=== PATIENT | male | born 1935 | race Caucasian/White ===

== ENCOUNTER → 2017-03-31 | Outpatient (CLI) | payer OTHER ==
[~2017-03-31] MED LIST: CMD10 PO; CMD75 PO; GABA600T PO; SERT25TA PO; TAMS0.4C38 PO
[2017-03-31 12:42] LABS: HEMATOCRIT 42.8 % (42-52); MEAN CELL VOLUME 91.1 fL (80-100); MEAN CORPUSCULAR HGB CONC 32.9 g/dl (32-36); MEAN PLATELET VOLUME 11.8 fL (7.4-10.4); PLATELET COUNT 159 K/uL (130-400)
[2017-03-31 13:01] LABS: BLOOD UREA NITROGEN 17 mg/dl (7-18); BUN/CREATININE RATIO 14.4 (10-20); CALCIUM 8.7 mg/dl (8.5-10.1); CARBON DIOXIDE 26 mmol/L (21-32); CHLORIDE 110 mmol/L (98-107); CHOLESTEROL 140 mg/dl (0-200); GLUCOSE,FASTING 82 mg/dl (70-99); POTASSIUM 4.2 mmol/L (3.5-5.1); SODIUM 141 mmol/L (136-145)
[2017-03-31 13:04] LABS: CHOLESTEROL/HDL RATIO 3.6; HDL CHOLESTEROL 39 mg/dl; LDL CHOLESTEROL CALCULATED 83 mg/dl; TRIGLYCERIDES 91 mg/dl (0-150); VERY LOW DENSITY LIPOPROT CALC 18 mg/dl
--- NOTE | 2017-04-11 12:30 | CODING QUERY MEDICAL NECESSITY ---
CQSUPPORTING DIAGNOSIS NEEDED A supporting diagnosis is required for the test/procedure performed on this patient in order for us to be reimbursed by the patient's insurance. Please provide a supporting diagnosis for the following test/procedure listed below next to the test name along with your signature. *If there is no additional diagnosis for this patient that would support the following test/procedure please document that below next to the test/procedure. Test(s)/Procedure(s) that require a supporting diagnosis: DOS 03/31/17 BLOOD COUNT Provider Signature: Date: Thank you Eleonora Blount [employer] Once completed, please kindly fax back to [phone] For questions please call [phone]
== END | disposition home or self-care (01) ==
LOC: C.LABPBG 10:19
PROVIDERS: ATTEND Physician Assistant
DX: Z00.00 Encounter for general adult medical examination without abnormal findings (principal); E78.5 Hyperlipidemia, unspecified; I10 Essential (primary) hypertension

== ENCOUNTER → 2017-05-15 | Outpatient (CLI) | payer OTHER ==
[2017-05-15 18:01] LABS: MANUAL MICROSCOPIC REQUIRED? NO; REVIEW REQ? NO; URINE APPEARANCE CLEAR (CLEAR); URINE BILIRUBIN NEG (NEG); URINE COLOR DK YELLOW; URINE EPITHELIAL CELL AUTO 0-5 /lpf (0-5); URINE NITRITE NEG (NEG); URINE SPECIFIC GRAVITY 1.023 (1.000-1.030); UROBILINOGEN POS (NEG); ZZUR CULT IF INDIC CLEAN CATCH NO
[2017-05-20 11:08] LABS: 18KDIGG BAND REACTIVE (NONREACTIVE); 23KDIGG BAND REACTIVE (NONREACTIVE); 23KDIGM BAND REACTIVE (NONREACTIVE); 28KDIGG BAND NONREACTIVE (NONREACTIVE); 30KDIGG BAND NONREACTIVE (NONREACTIVE); 39KDIGG BAND NONREACTIVE (NONREACTIVE); 39KDIGM BAND NONREACTIVE (NONREACTIVE); 41KDIGG BAND REACTIVE (NONREACTIVE); 41KDIGM BAND NONREACTIVE (NONREACTIVE); 45KDIGG BAND NONREACTIVE (NONREACTIVE); 58KDIGG BAND REACTIVE (NONREACTIVE); 66KDIGG BAND REACTIVE (NONREACTIVE); 93KDIGG BAND NONREACTIVE (NONREACTIVE)
== END | disposition home or self-care (01) ==
LOC: C.LABPBG 14:45
PROVIDERS: ATTEND Physician Assistant
DX: S30.861A Insect bite (nonvenomous) of abdominal wall, initial encounter (principal); W57.XXXA Bitten or stung by nonvenomous insect and other nonvenomous arthropods, initial encounter; R42 Dizziness and giddiness

== ENCOUNTER → 2018-02-01 | Outpatient (CLI) | payer OTHER ==
--- NOTE | 2018-02-01 13:18 | DIAGNOSTIC IMAGING REPORT ---
(CHEST) THORAX WITHOUT CLINICAL HISTORY: 82 years-old Male presenting with R93.[address], history of COPD. TECHNIQUE: Multidetector CT imaging of the chest was performed without the use of intravenous contrast. IV contrast: None. A dose lowering technique was used consistent with the principles of ALARA (as low as reasonably achievable). COMPARISON: 06/22/2016. CT DOSE (mGy.cm): The estimated cumulative dose is 415.69 mGy.cm. FINDINGS: Instrumentation Supervisor topogram: Unremarkable. On soft tissue windows, subcentimeter nodules present in the thyroid. 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 Calcified right hilar and mediastinal lymph nodes noted. No axillary, supraclavicular, or mediastinal lymphadenopathy. Evaluation of the caio limited without intravenous contrast. Atherosclerosis of the aorta. Normal heart size. Coronary artery and aortic valve calcification. No pericardial or pleural effusion. Upper abdomen normal. On lung windows, evidence of air trapping and emphysematous changes in the left lower lobe with significant left lower lobe bronchiectasis. This is similar to the prior exam. Calcified granuloma noted in the right middle lobe. Mild pleural parenchymal scarring at the apices similar to prior. Interval resolution of the previously noted tree-in-bud opacities in the lateral basal right lower lobe. However, 2 adjacent solid nodules are noted in the posterior basal right lower lobe one measuring 7 mm (series 4 image 288) and the second measuring 5 mm (series 4 image 291). These are both subpleural/peripheral. Mild interlobular septal thickening at the right lung base. On bone windows, degenerative changes of the spine. IMPRESSION: 1. Interval development of 2 peripheral/subpleural solid nodules at the right lung base the largest measuring 7 mm. Follow-up per [employer] 2017 recommendations below. 2. Interval clearance of the previously noted tree-in-bud opacities in the right lower lobe in 2016. 3. Stable appearance of bronchiectatic change and air trapping in the left lower lobe. 4. 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 No convincing evidence of acute infection. Please refer to below summary of Fleischner Society 2017 recommendations for follow-up of incidental CT nodules (H Moiz et al. Guidelines for management of incidental pulmonary nodules detected on CT images: From the Fleischner Society 2017. Radiology 2017; 284: 228-243.) SOLID NODULES Single nodule; size < 6 mm * Low risk patients: No routine follow-up * High risk patients: Optional CT at 12 months Single nodule; size 6-8 mm * Low risk patients: CT at 6-12 months, then consider CT at 18-24 months * High risk patients: CT at 6-12 months, then at 18-24 months Single nodule; size > 8 mm * Either low or high risk patients: Considered CT at 3 months, PET/CT, or tissue sampling Multiple nodules; size < 6 mm * Low risk patients: No routine follow up * High risk patients: Optional CT at 12 months Multiple nodules; size 6-8 mm * Low risk patients: CT at 3-6 months, then consider CT at 18-24 months * High risk patients: CT at 3-6 months, then at 18-24 months Multiple nodules; size > 8 mm * Low risk patients: CT at 3-6 months, then consider at 18-24 months * High risk patients: CT at 3-6 months, then at 18-24 months SUBSOLID NODULES Single ground-glass nodule * Nodule size < 6 mm: No routine follow-up * Nodule size > or = 6 mm: CT at 6-12 months to confirm persistence, then CT every 2 years until 5 years Single part-solid nodule * Nodule size < 6 mm: No routine follow-up * Nodules size > or = 6 mm: CT at 3-6 months to confirm persistence. If unchanged and solid component remains < 6 mm, annual CT should be performed for 5 years Multiple nodules * Nodule size < 6 mm: CT at 3-6 months. If stable, consider CT at 2 and 4 years. * Nodules size > or = 6 mm: CT at 3-6 months. Subsequent management based on the most suspicious nodule(s) NOTE: 1) These guidelines apply to incidental nodules. These guidelines do NOT apply to patients younger than 35 years, immunocompromised patients, or patients with cancer. 2) Risk categories: * Low risk patients: Minimal or absent history of smoking and/or other known risk factors * High risk patients: History of smoking, exposure to other carcinogens, emphysema, fibrosis, upper lobe location, family history of lung cancer, etc. 3) If a nodule up to 8 mm is partly solid or is ground glass, further follow-up is required after 24 months to exclude possible slow growing adenocarcinoma. Electronically signed by: Gurinder French M.D. 02/01/2018 1:17 PM Dictated Date/Time: 02/01/2018 1:10 PM
[2018-02-01 14:51] LABS: BASO % 0.2 %; BASO ABS # 0.01 K/uL (0-0.2); EOS % 1.7 %; EOS ABS # 0.09 K/uL (0-0.5); HEMOGLOBIN 14.7 g/dL (14.0-18.0); LYMPH % 20.6 %; LYMPH ABS # 1.08 K/uL (1.2-3.4); MEAN CELL VOLUME 93.9 fL (80-100); MEAN CORPUSCULAR HEMOGLOBIN 30.7 pg (25-34); MEAN CORPUSCULAR HGB CONC 32.7 g/dl (32-36); MONO % 8.4 %; MONO ABS # 0.44 K/uL (0.11-0.59); NEUT % 69.1 %; NEUT ABS # 3.63 K/uL (1.4-6.5); PLATELET COUNT 203 K/uL (130-400); RED CELL DISTRIBUTION WIDTH CV 14.3 % (11.5-14.5); RED CELL DISTRIBUTION WIDTH SD 49.2 fL (36.4-46.3); WHITE BLOOD COUNT 5.25 K/uL (4.8-10.8)
[2018-02-01 15:24] LABS: BLOOD UREA NITROGEN 18 mg/dl (7-18); CALCIUM 8.6 mg/dl (8.5-10.1); CARBON DIOXIDE 30 mmol/L (21-32); CREATININE 1.24 mg/dl (0.60-1.40); GLUCOSE 110 mg/dl (70-99); POTASSIUM 3.9 mmol/L (3.5-5.1); SODIUM 143 mmol/L (136-145)
== END | disposition home or self-care (01) ==
LOC: C.CTS 12:43
PROVIDERS: ATTEND Family Medicine
DX: R93.8 Abnormal findings on diagnostic imaging of other specified body structures (principal); I95.9 Hypotension, unspecified; R53.1 Weakness

== ENCOUNTER → 2018-05-09 | Outpatient (CLI) | payer OTHER ==
--- NOTE | 2018-05-09 14:16 | DIAGNOSTIC IMAGING REPORT ---
L HIP UNILATERAL 2 VIEWS HISTORY: 82 years-old Male HIP PAIN, LEFT acute left hip pain without reported trauma COMPARISON: None available TECHNIQUE: 2 views of the left hip FINDINGS: The bones appear mildly demineralized. Mild degenerative changes about the left femoral acetabular joint. Surgical coils project over the right hemipelvis. Round calcifications of the pelvic basin suggest phleboliths. No acute fracture or dislocation. IMPRESSION: No acute fracture or dislocation identified. The above report was generated using voice recognition software. It may contain grammatical, syntax or spelling errors. Electronically signed by: Al Gottlieb M.D. 05/09/2018 2:15 PM Dictated Date/Time: 05/09/2018 2:13 PM
== END | disposition home or self-care (01) ==
LOC: C.RAD 13:57
PROVIDERS: ATTEND Physician Assistant
DX: M25.552 Pain in left hip (principal)

== ENCOUNTER 2022-06-14 07:23 | Observation (INO) ==
[2022-06-14 08:27] LABS: Basophils # (auto) 0.02 K/uL (0-0.2); Basophils % (auto) 0.3 %; Hematocrit (blood only) 42.9 % (40.1-51.0); Hemoglobin 14.8 g/dl (14.0-18.0); Immature Granulocytes # (auto) 0.01 K/uL (0.00-0.02); Immature Granulocytes % (auto) 0.1 %; Lymphocytes # (auto) 1.34 K/uL (1.2-3.4); Lymphocytes % (auto) 17.5 %; Mean Corpuscular Hemoglobin 31.2 pg (25.0-34.0); Mean Corpuscular Hgb Conc 34.5 g/dL (32.0-36.0); Mean Corpuscular Volume 90.5 fL (80.0-100.0); Mean Platelet Volume 11.1 fL (9.4-12.4); Monocytes # (auto) 1.13 K/uL (0.24-0.82); Monocytes % (auto) 14.7 %; Neutrophils # (auto) 5.17 K/uL (1.4-6.5); Neutrophils % (auto) 67.4 %; Platelet Count 143 K/uL (130-400); RDW Coefficient of Variation 13.8 % (11.5-14.5); RDW Standard Deviation 45.7 fL (36.4-46.3); Red Blood Count 4.74 M/uL (4.63-6.08); White Blood Count 7.67 K/ul (4.8-10.8)
[2022-06-14 08:31] LABS: Appearance Urine Clear (Clear); Bacteria Urine Automated Negative (Negative); Bilirubin Urine Negative (Negative); Blood Urine 2+ (Negative); Color Urine Dark Yellow; Glucose Urine UA Negative (Negative); Ketones Urine Trace (Negative); Leukocyte Esterase Urine Negative (Negative); Nitrite Urine Negative (Negative); Protein Urine Trace (Negative); RBC Urine Automated >30 /hpf (0-4); Urobilinogen Urine Positive (Negative); pH Urine 6.5 (4.5-7.5)
--- NOTE | 2022-06-14 08:33 | Emergency Department Note ---
Impression & Plan COVID-19, Generalized weakness ED Provider Note CHIEF COMPLAINT: Illness HISTORY OF PRESENT ILLNESS: Filiberto Simmons is an 86 year old male with history of a-fib on Eliquis, COPD, HTN, DLD, hypothyroidism, among others listed below who presents to the Emergency Department for evaluation of illness including perceived fevers/chills, headaches, sore throat, nasal congestion cough, shortness of breath and generalized weakness which has been persistent over the past 3 days. The patient states that he has pretty much been resting in his chair for the past 3 days as he has felt too weak to get up. He also notes decreased appetite and has had poor oral intake. Last evening around midnight, he states that he was going to get up to get something to eat but couldn't make it, so he laid on the floor and slept there until his called the ambulance at 0600 for help. The patient denies having suffered a fall and did not injure himself in any way. No LOC. Currently, the patient denies having specific pain but states that he just feels generally unwell. He has not been taking any medication for his symptoms. The patient does state that he was recently exposed to COVID-19 by his daughter within the last week. He was not able to complete the vaccination due to allergy. REVIEW OF SYSTEMS: 10 systems were reviewed and were negative unless otherwise stated in HPI as above PHYSICAL EXAM: VITALS: Vitals are noted on the nurse's note and reviewed by myself. Hypertensive, additional vital signs stable. General: Resting in bed, appears tired, no acute distress HEENT: Normocephalic, atraumatic, PERRL, EOMI, right TM with mild erythema and small effusion, left TM clear, no nasal discharge, mucous membranes moist, oropharynx clear without erythema, edema or exudates Neck: Supple, no lymphadenopathy, non-tender, ROM intact without pain Resp: Good inspiratory effort on room air, lung sounds clear bilaterally without wheezing, rales or rhonchi CV: Irregularly irregular rate and rhythm, peripheral pulses palpated Back: Non-tender to palpation Abd: Soft, non-distended, non-tender MSK: No obvious long bone deformities. Moving all extremities with strength 5/5 and sensation intact throughout Integumentary: Warm, dry, no appreciable rashes, no outward signs of trauma Neuro: Awake, alert and oriented x 3, interacting and answering questions appropriately Differential diagnosis includes viral syndrome, otitis, pharyngitis, pneumonia, influenza, meningitis, urinary tract infection, sepsis, bacteremia, as well as other pathologies. EMERGENCY DEPARTMENT COURSE: Physical exam and history were performed. Nursing triage notes, EMR, and medication list were personally reviewed. Patient is an 86 year old male with history of a-fib on Eliquis, COPD, HTN, DLD, hypothyroidism, among others listed below who presents to the Emergency Department for evaluation of illness including perceived fevers/chills, headaches, sore throat, nasal congestion cough, shortness of breath and generalized weakness which has been persistent over the past 3 days. Additional history as described above. See physical exam as noted above. The patient was offered medication and was given Tylenol 1000 mg. IV access was established and he was also given NSS 500 mL. Labs were obtained and reviewed by myself as below. Of note, no concern for leukocytosis with a WBC of 7.67. No concern for anemia with hemoglobin 14.8. Electrolytes WNL. Renal indices stable. LFTs nondiagnostic. Lipase WNL. High-sensitivity troponin not elevated at 7.4. INR slightly elevated at 1.2 with PT of 12.5 and PTT of 31.6. Urinalysis was obtained and showed trace protein, trace ketones, 2+ blood, positive urobilinogen, >30 red blood cells. Possible contamination with 510 epithelial cells. EKG was obtained and showed A. fib at 78 bpm. No concern for acute ischemic change. No previous studies available for comparison. Chest x-ray was obtained, reviewed by radiologist and myself as below. Images not concerning for acute cardiopulmonary findings. The patient was tested for COVID19, influenza a/B and RSV. He did test positive for COVID19. Upon reevaluation, the patient was doing well. I discussed the results the above findings with him at bedside. Given the patient's positive diagnosis of COVID19 and generalized weakness with ambulatory dysfunction and multiple comorbidities, I do feel that he will benefit from continued monitoring in the hospital. I did call and speak with Dr. Bass of the [facility] hospitalist group. She agreed to evaluate the patient. Please see her documentation for additional plan and disposition thereafter. The patient verbalizes understanding and agreement with the treatment plan as above. The chart was completed utilizing Dragon Speech Voice Recognition Software. Grammatical errors, random word insertions, pronoun errors, and incomplete sentences are an occasional consequence of this system due to software limitations, ambient noise, and hardware issues. Any formal questions or concerns about the content, text, or information contained within the body of this dictation should be directly addressed to the provider for clarification. Past Med/Surg History Medical History Atrial fibrillation, permanent Benign essential hypertension BPH with obstruction/lower urinary tract symptoms Bronchiectasis Chronic anticoagulation COPD (chronic obstructive pulmonary disease) Depression with anxiety Elevated PSA History of Lyme disease History of pneumonia Hyperlipidemia Hypothyroid Insomnia Neuropathy PAC (premature atrial contraction) Prostate nodule Pulmonary nodules last CT chest in December 2018 noting resolution of pulmonary nodules, no further f/u indicated. 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 caffeine: Yes (Coffee x 1 cup per day.) during the past year weight has: remained stable Dental Care, Regularly: Yes Physical Activity Frequency: 1-2 Times per Week Seatbelt Use: always Sunscreen Use: Yes Assistive Devices: Glasses Allergies Allergies Allergy/AdvReac Type Severity Reaction Status Date / Time COVID-19 vaccine, mRNA, AdvReac Severe Verified 06/14/22 09:21 [id number], [From Moderna COVID-19 Booster(Unap)] Home Meds Home Medications Medication Instructions Recorded Confirmed triamcinolone acetonide 0.1 % See Rx Instructions .Route 05/26/22 06/14/22 topical cream .COMPLEX PRN Rash propranolol 10 mg tablet 10 mg PO BID 06/14/22 06/14/22 Previous Rx's Medication Instructions Recorded polyethylene glycol 3350 17 gram 17 gm PO .COMPLEX #100 ea 07/26/19 oral powder packet bumetanide 0.5 mg tablet 0.5 mg PO DAILY PRN swelling #90 05/27/21 tabs gabapentin 600 mg tablet 600 mg PO BID #180 tabs 01/17/22 tamsulosin 0.4 mg capsule 0.4 mg PO QAM #90 caps 01/17/22 apixaban 5 mg tablet (Eliquis) 5 mg PO BID #180 tabs 02/18/22 atorvastatin 10 mg tablet 10 mg PO QAM #90 tabs 05/10/22 levothyroxine 25 mcg tablet 25 mcg PO QAM #90 tabs 05/20/22 amlodipine 2.5 mg tablet 2.5 mg PO DAILY #90 tabs 06/14/22 Results & Data (ED) Vital Signs Vital Signs - 24 hr 06/14/22 07:31 06/14/22 08:02 06/14/22 09:00 Temperature 37.3 C Temperature Source Oral Pulse Rate 82 Pulse Rate [Right Finger] 78 78 Pulse Rate from SpO2 Sensor Respiratory Rate 24 24 24 Respiratory Effort / Characteristics Respiratory Depth Blood Pressure 161/102 H Blood Pressure [Right Arm] 168/98 H 161/96 H Blood Pressure Mean 121 Blood Pressure Mean [Right Arm] 121 117 Pulse Oximetry 99 98 94 Oxygen Delivery Method Room Air Room Air Room Air Sepsis Recent Fever Within 48 Hours No Sepsis New/Unexplained Change in Mental Status N/A Sepsis Action Taken by Nursing No Action Required 06/14/22 09:51 06/14/22 07:48 06/14/22 08:00 Temperature Temperature Source Pulse Rate 85 80 Pulse Rate [Right Finger] 86 Pulse Rate from SpO2 Sensor 87 81 Respiratory Rate 24 25 H 27 H Respiratory Effort / Characteristics Non-Labored Respiratory Depth Normal Blood Pressure Blood Pressure [Right Arm] 173/103 H Blood Pressure Mean Blood Pressure Mean [Right Arm] 126 Pulse Oximetry 96 97 96 Oxygen Delivery Method Room Air Sepsis Recent Fever Within 48 Hours Sepsis New/Unexplained Change in Mental Status Sepsis Action Taken by Nursing 06/14/22 08:01 06/14/22 08:01 06/14/22 08:30 Temperature Temperature Source Pulse Rate 79 80 Pulse Rate [Right Finger] Pulse Rate from SpO2 Sensor 82 Respiratory Rate 26 H 24 Respiratory Effort / Characteristics Respiratory Depth Blood Pressure 168/98 H Blood Pressure [Right Arm] Blood Pressure Mean 121 Blood Pressure Mean [Right Arm] Pulse Oximetry 96 Oxygen Delivery Method Sepsis Recent Fever Within 48 Hours Sepsis New/Unexplained Change in Mental Status Sepsis Action Taken by Nursing 06/14/22 08:59 06/14/22 08:59 06/14/22 09:00 Temperature Temperature Source Pulse Rate 74 Pulse Rate [Right Finger] Pulse Rate from SpO2 Sensor Respiratory Rate 21 Respiratory Effort / Characteristics Respiratory Depth Blood Pressure 161/96 H 156/96 H Blood Pressure [Right Arm] Blood Pressure Mean 117 116 Blood Pressure Mean [Right Arm] Pulse Oximetry Oxygen Delivery Method Sepsis Recent Fever Within 48 Hours Sepsis New/Unexplained Change in Mental Status Sepsis Action Taken by Nursing 06/14/22 09:00 06/14/22 09:30 06/14/22 09:51 Temperature Temperature Source Pulse Rate 78 90 Pulse Rate [Right Finger] Pulse Rate from SpO2 Sensor 81 84 Respiratory Rate 25 H 24 Respiratory Effort / Characteristics Respiratory Depth Blood Pressure 173/103 H Blood Pressure [Right Arm] Blood Pressure Mean 126 Blood Pressure Mean [Right Arm] Pulse Oximetry 94 95 Oxygen Delivery Method Sepsis Recent Fever Within 48 Hours Sepsis New/Unexplained Change in Mental Status Sepsis Action Taken by Nursing 06/14/22 09:51 06/14/22 10:00 06/14/22 10:00 Temperature Temperature Source Pulse Rate 83 75 Pulse Rate [Right Finger] Pulse Rate from SpO2 Sensor 78 87 Respiratory Rate 29 H 26 H Respiratory Effort / Characteristics Respiratory Depth Blood Pressure 169/100 H Blood Pressure [Right Arm] Blood Pressure Mean 123 Blood Pressure Mean [Right Arm] Pulse Oximetry 96 91 Oxygen Delivery Method Sepsis Recent Fever Within 48 Hours Sepsis New/Unexplained Change in Mental Status Sepsis Action Taken by Nursing 06/14/22 10:30 06/14/22 10:30 06/14/22 11:00 Temperature Temperature Source Pulse Rate 80 Pulse Rate [Right Finger] Pulse Rate from SpO2 Sensor 83 Respiratory Rate 16 Respiratory Effort / Characteristics Respiratory Depth Blood Pressure 148/94 H 139/83 Blood Pressure [Right Arm] Blood Pressure Mean 112 101 Blood Pressure Mean [Right Arm] Pulse Oximetry Oxygen Delivery Method Sepsis Recent Fever Within 48 Hours Sepsis New/Unexplained Change in Mental Status Sepsis Action Taken by Nursing 06/14/22 11:00 06/14/22 11:30 06/14/22 11:30 Temperature Temperature Source Pulse Rate 72 66 Pulse Rate [Right Finger] Pulse Rate from SpO2 Sensor 73 67 Respiratory Rate 24 24 Respiratory Effort / Characteristics Respiratory Depth Blood Pressure 153/88 H Blood Pressure [Right Arm] Blood Pressure Mean 109 Blood Pressure Mean [Right Arm] Pulse Oximetry 95 95 Oxygen Delivery Method Sepsis Recent Fever Within 48 Hours Sepsis New/Unexplained Change in Mental Status Sepsis Action Taken by Nursing Laboratory Data Result diagrams: 06/14/22 08:05 06/14/22 08:05 Lab Results 06/14/22 06/14/22 06/14/22 Range/Units 08:05 08:05 08:05 WBC 7.67 (4.8-10.8) K/ul RBC 4.74 (4.63-6.08) M/uL Hgb 14.8 (14.0-18.0) g/dl Hct 42.9 (40.1-51.0) % MCV 90.5 (80.0-100.0) fL MCH 31.2 (25.0-34.0) pg MCHC 34.5 (32.0-36.0) g/dL RDW Std Deviation 45.7 (36.4-46.3) fL RDW Coeff of Nadege 13.8 (11.5-14.5) % Plt Count 143 (130-400) K/uL MPV 11.1 (9.4-12.4) fL Immature Gran % (Auto) 0.1 % Neut % (Auto) 67.4 % Lymph % (Auto) 17.5 % Todd % (Auto) 14.7 % Eos % (Auto) 0.0 % Baso % (Auto) 0.3 % Neut # (Auto) 5.17 (1.4-6.5) K/uL Lymph # (Auto) 1.34 (1.2-3.4) K/uL Todd # (Auto) 1.13 H (0.24-0.82) K/uL Eos # (Auto) 0.00 (0-0.50) K/uL Baso # (Auto) 0.02 (0-0.2) K/uL Immature Gran # (Auto) 0.01 (0.00-0.02) K/uL PT 12.5 H (9.0-12.0) Seconds INR 1.2 H (0.9-1.1) APTT 31.6 H (21.0-31.0) Seconds PTT Ratio 1.1 Sodium 138 (136-145) mmol/L Potassium 3.5 (3.5-5.1) mmol/L Chloride 102 (98-107) mmol/L Carbon Dioxide 30 (21-32) mmol/L Anion Gap 6 (3-11) BUN 15 (6-23) mg/dl Creatinine 1.16 (0.6-1.4) mg/dl Est Cr Clr Drug Dosing 56.5 ml/min Est GFR ( Amer) 65.3 ml/min Est GFR (Non-Af Amer) 56.3 ml/min BUN/Creatinine Ratio 12.9 (10-20) Glucose 91 (70-99(Fasting)) mg/dl Calcium 8.7 (8.5-10.1) mg/dl Phosphorus 3.2 (2.5-4.9) mg/dl Magnesium 1.8 (1.7-2.4) mg/dl Total Bilirubin 1.5 H (0.2-1.0) mg/dl AST 18 (13-39) U/L ALT 14 (7-52) U/L Alkaline Phosphatase 77 (34-104) U/L Troponin I High Sens 7.4 (0-20) pg/ml Total Protein 6.5 (6.0-8.3) gm/dl Albumin 3.5 (3.4-5.0) gm/dl Globulin 3.0 (2.5-4.0) gm/dl Albumin/Globulin Ratio 1.2 (0.9-2) Lipase 24 (11-82) U/L Urine Color Urine Appearance (Clear) Urine pH (4.5-7.5) Ur Specific [place] (1.000-1.030) Urine Protein (Negative) Urine Glucose (UA) (Negative) Urine Ketones (Negative) Urine Blood (Negative) Urine Nitrite (Negative) Urine Bilirubin (Negative) Urine Urobilinogen (Negative) Ur Leukocyte Esterase (Negative) Urine WBC (Auto) (0-5) /hpf Urine RBC (Auto) (0-4) /hpf U Hyaline Cast (Auto) (0-5) /lpf U Epithel Cells (Auto) (0-5) /lpf Urine Bacteria (Auto) (Negative) SARS-CoV-2 (PCR) (Negative) Influenza Type A (PCR) (Neg) Influenza Type B (PCR) (Neg) RSV (RT-PCR) (Neg) 06/14/22 06/14/22 Range/Units 08:05 08:05 WBC (4.8-10.8) K/ul RBC (4.63-6.08) M/uL Hgb (14.0-18.0) g/dl Hct (40.1-51.0) % MCV (80.0-100.0) fL MCH (25.0-34.0) pg MCHC (32.0-36.0) g/dL RDW Std Deviation (36.4-46.3) fL RDW Coeff of Nadege (11.5-14.5) % Plt Count (130-400) K/uL MPV (9.4-12.4) fL Immature Gran % (Auto) % Neut % (Auto) % Lymph % (Auto) % Todd % (Auto) % Eos % (Auto) % Baso % (Auto) % Neut # (Auto) (1.4-6.5) K/uL Lymph # (Auto) (1.2-3.4) K/uL Todd # (Auto) (0.24-0.82) K/uL Eos # (Auto) (0-0.50) K/uL Baso # (Auto) (0-0.2) K/uL Immature Gran # (Auto) (0.00-0.02) K/uL PT (9.0-12.0) Seconds INR (0.9-1.1) APTT (21.0-31.0) Seconds PTT Ratio Sodium (136-145) mmol/L Potassium (3.5-5.1) mmol/L Chloride (98-107) mmol/L Carbon Dioxide (21-32) mmol/L Anion Gap (3-11) BUN (6-23) mg/dl Creatinine (0.6-1.4) mg/dl Est Cr Clr Drug Dosing ml/min Est GFR ( Amer) ml/min Est GFR (Non-Af Amer) ml/min BUN/Creatinine Ratio (10-20) Glucose (70-99(Fasting)) mg/dl Calcium (8.5-10.1) mg/dl Phosphorus (2.5-4.9) mg/dl Magnesium (1.7-2.4) mg/dl Total Bilirubin (0.2-1.0) mg/dl AST (13-39) U/L ALT (7-52) U/L Alkaline Phosphatase (34-104) U/L Troponin I High Sens (0-20) pg/ml Total Protein (6.0-8.3) gm/dl Albumin (3.4-5.0) gm/dl Globulin (2.5-4.0) gm/dl Albumin/Globulin Ratio (0.9-2) Lipase (11-82) U/L Urine Color Dark Yellow Urine Appearance Clear (Clear) Urine pH 6.5 (4.5-7.5) Ur Specific [place] 1.020 (1.000-1.030) Urine Protein Trace H (Negative) Urine Glucose (UA) Negative (Negative) Urine Ketones Trace H (Negative) Urine Blood 2+ H (Negative) Urine Nitrite Negative (Negative) Urine Bilirubin Negative (Negative) Urine Urobilinogen Positive H (Negative) Ur Leukocyte Esterase Negative (Negative) Urine WBC (Auto) 1-5 (0-5) /hpf Urine RBC (Auto) >30 H (0-4) /hpf U Hyaline Cast (Auto) 1-5 (0-5) /lpf U Epithel Cells (Auto) 5-10 H (0-5) /lpf Urine Bacteria (Auto) Negative (Negative) SARS-CoV-2 (PCR) POSITIVE A* (Negative) Influenza Type A (PCR) Negative (Neg) Influenza Type B (PCR) Negative (Neg) RSV (RT-PCR) Negative (Neg) Administered Medications Amlodipine Besylate (Amlodipine Besylate 5 Mg Tab) 2.5 mg PO DAILY TARI Stop: 07/14/22 14:17 Last Admin: 06/14/22 15:35 Dose: 2.5 mg Documented By: AM Apixaban (Apixaban 5 Mg Tablet) 5 mg PO BID TARI Stop: 07/14/22 14:17 Last Admin: 06/14/22 15:37 Dose: 5 mg Documented By: AM Atorvastatin Calcium (Atorvastatin 10 Mg Tab) 10 mg PO QAM TARI Stop: 07/14/22 14:17 Last Admin: 06/14/22 15:37 Dose: 10 mg Documented By: AM Gabapentin (Gabapentin 600 Mg Tab) 600 mg PO BID TARI Stop: 07/14/22 14:17 Last Admin: 06/14/22 15:38 Dose: 600 mg Documented By: AM Propranolol HCl (Propranolol Hcl 10 Mg Tab) 10 mg PO BID TARI Stop: 07/14/22 14:17 Last Admin: 06/14/22 15:38 Dose: 10 mg Documented By: AM Tamsulosin HCl (Tamsulosin Hcl 0.4 Mg Cap) 0.4 mg PO QAM TARI Stop: 07/14/22 14:17 Last Admin: 06/14/22 15:39 Dose: 0.4 mg Documented By: AM Discontinued Medications Acetaminophen (Acetaminophen 500 Mg Tab) 1,000 mg PO NOW STA Stop: 06/14/22 09:00 Last Admin: 06/14/22 09:51 Dose: 1,000 mg Documented By: NRB Sodium Chloride (Nss) 500 mls @ 999 mls/hr IV .Q31M TARI Stop: 07/14/22 08:59 Last Infusion: 06/14/22 11:00 Dose: 0 mls/hr Documented By: Admin: 06/14/22 10:06 Dose: 999 mls/hr Documented By: NRB Imaging Data Radiologist's Impression: Chest X-Ray 06/14/22 07:59 XR chest 1V portable CLINICAL HISTORY: Fall. COMPARISON STUDY: No previous studies for comparison. FINDINGS: There is no pneumothorax or pleural effusion. There is no consolidation. Suspected nipple shadow projects over the right lower lung. There is no evidence for pulmonary edema. IMPRESSION: No acute cardiopulmonary findings. ACT 112: Negative or not required by law. Electronically signed by: Inocencio Green M.D. 06/14/2022 9:20 AM Discharge Plan Visit Data Chief Complaint: Illness Stated Complaint: FALL/WEAKNESS/RECENT COVID EXPOSURE ED Provider: [facility] Midlevel Provider: Halle Gonsales Discharge Problem: COVID-19, Generalized weakness Patient Disposition: Admitted As Inpatient Discharge Instructions Interventions: ED Discharge Assessment Last Done: 06/14/22 14:19
[2022-06-14 08:40] LABS: INR 1.2 (0.9-1.1); Partial Thromboplastin Ratio 1.1; Partial Thromboplastin Time 31.6 Seconds (21.0-31.0); Prothrombin Time 12.5 Seconds (9.0-12.0)
[2022-06-14 08:55] LABS: Troponin I High Sensitivity 7.4 pg/ml (0-20)
[2022-06-14] MEDS ORDERED: ACETAMINOPHEN 500 MG TAB PO STA (08:59)
[2022-06-14 09:00] LABS: Albumin Globulin Ratio 1.2 (0.9-2); Albumin Level 3.5 gm/dl (3.4-5.0); BUN Creatinine Ratio 12.9 (10-20); Bilirubin,Total 1.5 mg/dl (0.2-1.0); Calcium 8.7 mg/dl (8.5-10.1); Creatinine Clr Calc Pharmacy 56.5 ml/min; Est GFR (African American) 65.3 ml/min; Est GFR (Non-African American) 56.3 ml/min; Magnesium 1.8 mg/dl (1.7-2.4); Phosphorus 3.2 mg/dl (2.5-4.9); Potassium 3.5 mmol/L (3.5-5.1); Total Protein 6.5 gm/dl (6.0-8.3)
--- NOTE | 2022-06-14 09:21 | XRay Report ---
XR chest 1V portable CLINICAL HISTORY: Fall. COMPARISON STUDY: No previous studies for comparison. FINDINGS: There is no pneumothorax or pleural effusion. There is no consolidation. Suspected nipple s hadow projects over the right lower lung. There is no evidence for pulmonary edema. IMPRESSION: No acute cardiopulmonary findings. ACT 112: Negative or not required by law. Electronically signed by: Inocencio Green M.D. 06/14/2022 9:20 AM
[2022-06-14] MEDS: SODIUM CHLORIDE 0.9% 500 ML IV SCH ×3 (10:06→16:16)
[2022-06-14 10:15] LABS: Influenza A virus by PCR Negative (Neg); Influenza B virus by PCR Negative (Neg); RSV by PCR Negative (Neg)
[2022-06-14 10:28] LABS: SARS CoV2 RNA(COVID-19) InHosp POSITIVE (Negative)
--- NOTE | 2022-06-14 11:54 | History & Physical Report ---
Date of Service June 14, 2022 Assessment & Plan (1) COVID-19: Plan: Patient presents with generalized weakness secondary to COVID-19. He is not hypoxic and does not meet criteria for dexamethasone He received 1 dose of Moderna COVID-vaccine when it was first available and had a severe allergic reaction-he has not received any doses since -Admit to PCU for telemetry monitoring given history of atrial fibrillation Will treat with 5-day course of remdesivir Monitor oxygen levels Was given IV fluids in the ER and will hold home bumetanide for now Tylenol as needed for fevers Follow CBC, CMP, CRP in the morning PT/OT consults placed for generalized weakness (2) Ambulatory dysfunction: Plan: As above PT/OT consults (3) Atrial fibrillation, permanent: Plan: Rate controlled Continue home propranolol 10 Mg p.o. twice daily Continue apixaban 5 Mg p.o. twice daily for anticoagulation Monitor on telemetry (4) Benign essential hypertension: Plan: Blood pressures are mildly elevated as he did not take his morning medications Continue home amlodipine 2.5 Mg p.o. once daily, propranolol 10 Mg p.o. twice daily (5) BPH with obstruction/lower urinary tract symptoms: Plan: No acute issues, watch for urinary retention Continue home tamsulosin (6) Chronic anticoagulation: Plan: On Eliquis as above for atrial fibrillation (7) COPD (chronic obstructive pulmonary disease): Plan: No acute issues, no hypoxia With a history of bronchiectasis noted in the chart but no abnormalities on x- ray or examination (8) Hyperlipidemia: Plan: Continue atorvastatin (9) Hypothyroid: Plan: Continue levothyroxine TSH normal at 3.1 earlier this month (10) Neuropathy: Plan: No acute issues, but could contribute to difficulty with ambulation Replacing B12 as an outpatient with injections as of recent history Continue gabapentin (11) Restless leg syndrome: Plan: Continue gabapentin Plan DVT prophylaxis-Eliquis, SCDs Disposition-qualifies for observation stay, PT/OT evaluations ordered and if improved strength, could possibly discharged home tomorrow Full code History of Present Illness Chief Complaint: Weakness Primary Care Provider: NO PCP This patient is an 86-year-old male with a history of HTN, neuropathy, permanent atrial fibrillation, BPH, bronchiectasis, COPD, RLS, hyperlipidemia, hypothyroidism, and B12 deficiency who presents to the ER with Generalized weakness, mild headache, fevers and chills, decreased appetite over the last 3 days but especially worse today. He slid out of his chair last night and was so weak he could not get off the floor and slipped there all night until his called an ambulance at 6 in the morning. He did not fall or hit his head. He has no pain anywhere. He suspected he had COVID-19 and did indeed test positive for it in the ER. He denies any shortness of breath or cough, no sore throat or sinus congestion. No nausea or vomiting in fact feels hungry. Denies abdominal pains or diarrhea. His vitals were stable. Chest x-ray was negative for pneumonia. He was treated in the ER with 500 mL of normal saline and acetaminophen 1000 mg p.o. x1. He will be admitted for generalized weakness secondary to COVID-19 and evaluation with PT/OT. Allergies Allergy/AdvReac Type Severity Reaction Status Date / Time COVID-19 vaccine, mRNA, AdvReac Severe Verified 06/14/22 09:21 [id number], [From [facility] COVID-19 Booster(Formerly [facility])] Home Medications Medication Instructions Recorded Confirmed Type polyethylene glycol 3350 17 gram 17 gm PO .COMPLEX #100 ea 07/26/19 06/14/22 Rx oral powder packet bumetanide 0.5 mg tablet 0.5 mg PO DAILY PRN swelling #90 05/27/21 06/14/22 Rx tabs gabapentin 600 mg tablet 600 mg PO BID #180 tabs 01/17/22 06/14/22 Rx tamsulosin 0.4 mg capsule 0.4 mg PO QAM #90 caps 01/17/22 06/14/22 Rx apixaban 5 mg tablet (Eliquis) 5 mg PO BID #180 tabs 02/18/22 06/14/22 Rx atorvastatin 10 mg tablet 10 mg PO QAM #90 tabs 05/10/22 06/14/22 Rx levothyroxine 25 mcg tablet 25 mcg PO QAM #90 tabs 05/20/22 06/14/22 Rx triamcinolone acetonide 0.1 % See Rx Instructions .Route 05/26/22 06/14/22 History topical cream .COMPLEX PRN Rash amlodipine 2.5 mg tablet 2.5 mg PO DAILY #90 tabs 06/14/22 Rx propranolol 10 mg tablet 10 mg PO BID 06/14/22 06/14/22 History Past Med/Surg History Medical History Atrial fibrillation, permanent Benign essential hypertension BPH with obstruction/lower urinary tract symptoms Bronchiectasis Chronic anticoagulation COPD (chronic obstructive pulmonary disease) Depression with anxiety Elevated PSA History of Lyme disease History of pneumonia Hyperlipidemia Hypothyroid Insomnia Neuropathy PAC (premature atrial contraction) Prostate nodule Pulmonary nodules last CT chest in December 2018 noting resolution of pulmonary nodules, no further f/u indicated. Restless leg syndrome Surgical History H/O hernia repair H/O laminectomy cervical Hx of hand surgery Family History (System 06/14/22 @ 09:21 by Dea Bucio) Mother Breast cancer Daughter Breast cancer Denies family history of Ovarian cancer Prostate cancer Myocardial infarction Colorectal cancer Social History Smoking Status: Never smoker Second Hand Exposure: No; Hx Alcohol Use: Yes Alcohol type: beer and hard liquor Hx Substance Use: No Preferred Language: French Communication Ability: Effective Hearing Ability: Normal Electrical Mechanic Required: No Beliefs That Will Affect Care: None marital status: Current Living Situation: Spouse current occupational status: retired How many Children do You have: 5 Other Information That Helps Us Care for You: No Feels Safe at Home: Yes Childhood Exposure to Second-Hand Smoke: No Diet Comment: Does not follow diet. caffeine: Yes (Coffee x 1 cup per day.) during the past year weight has: remained stable Dental Care, Regularly: Yes Physical Activity Frequency: 1-2 Times per Week Seatbelt Use: always Sunscreen Use: Yes Assistive Devices: Glasses Review of Systems Review of Systems: All systems reviewed & are unremarkable except as noted in HPI & below Physical Exam Constitutional: WD/WN, vitals as above Eyes: PERRL, conjunctivae normal, anicteric sclerae ENMT: external ear and nose normal, oropharynx normal Neck: trachea midline, no thyromegaly Respiratory: normal respiratory effort, lungs clear to auscultation Cardiovascular: Rate/Rhythm: regular rate and + irregularly irregular Heart Sounds: no murmur Extremities: no edema Chest (Breasts): Chest: normal inspection of chest Gastrointestinal (Abdomen): normal bowel sounds, soft, nontender, no hepatosplenomegaly Musculoskeletal: Extremities: extremities normal to inspection; no cyanosis and no clubbing Skin: no rashes, warm and dry Neurologic: moves all extremities and awake; no focal motor deficits Psychiatric: A+Ox3, euthymic affect Lymphatic: no lymphedema Results & Data Results & Data ([facility]) Vital Signs (Past 12 Hours) Vital Signs Temp Pulse Pulse Resp BP BP Pulse Ox 06/14/22 09:51 86 24 173/103 H 96 06/14/22 09:00 78 24 161/96 H 94 06/14/22 08:02 78 24 168/98 H 98 06/14/22 07:31 37.3 C 82 24 161/102 H 99 O2 Del Method 06/14/22 09:51 Room Air 06/14/22 09:00 Room Air 06/14/22 08:02 Room Air 06/14/22 07:31 Room Air Laboratory Results 06/14/22 06/14/22 06/14/22 Range/Units 08:05 08:05 08:05 WBC (4.8-10.8) K/ul RBC (4.63-6.08) M/uL Hgb (14.0-18.0) g/dl Hct (40.1-51.0) % MCV (80.0-100.0) fL MCH (25.0-34.0) pg MCHC (32.0-36.0) g/dL RDW Std Deviation (36.4-46.3) fL RDW Coeff of Nadege (11.5-14.5) % Plt Count (130-400) K/uL MPV (9.4-12.4) fL Immature Gran % (Auto) % Neut % (Auto) % Lymph % (Auto) % [place] % (Auto) % Eos % (Auto) % Baso % (Auto) % Neut # (Auto) (1.4-6.5) K/uL Lymph # (Auto) (1.2-3.4) K/uL [place] # (Auto) (0.24-0.82) K/uL Eos # (Auto) (0-0.50) K/uL Baso # (Auto) (0-0.2) K/uL Immature Gran # (Auto) (0.00-0.02) K/uL PT (9.0-12.0) Seconds INR (0.9-1.1) APTT (21.0-31.0) Seconds PTT Ratio Sodium 138 (136-145) mmol/L Potassium 3.5 (3.5-5.1) mmol/L Chloride 102 (98-107) mmol/L Carbon Dioxide 30 (21-32) mmol/L Anion Gap 6 (3-11) BUN 15 (6-23) mg/dl Creatinine 1.16 (0.6-1.4) mg/dl Est Cr Clr Drug Dosing 56.5 ml/min Est GFR ( Amer) 65.3 ml/min Est GFR (Non-Af Amer) 56.3 ml/min BUN/Creatinine Ratio 12.9 (10-20) Glucose 91 (70-99(Fasting)) mg/dl Calcium 8.7 (8.5-10.1) mg/dl Phosphorus 3.2 (2.5-4.9) mg/dl Magnesium 1.8 (1.7-2.4) mg/dl Total Bilirubin 1.5 H (0.2-1.0) mg/dl AST 18 (13-39) U/L ALT 14 (7-52) U/L Alkaline Phosphatase 77 (34-104) U/L Troponin I High Sens 7.4 (0-20) pg/ml Total Protein 6.5 (6.0-8.3) gm/dl Albumin 3.5 (3.4-5.0) gm/dl Globulin 3.0 (2.5-4.0) gm/dl Albumin/Globulin Ratio 1.2 (0.9-2) Lipase 24 (11-82) U/L Urine Color Dark Yellow Urine Appearance Clear (Clear) Urine pH 6.5 (4.5-7.5) Ur Specific [place] 1.020 (1.000-1.030) Urine Protein Trace H (Negative) Urine Glucose (UA) Negative (Negative) Urine Ketones Trace H (Negative) Urine Blood 2+ H (Negative) Urine Nitrite Negative (Negative) Urine Bilirubin Negative (Negative) Urine Urobilinogen Positive H (Negative) Ur Leukocyte Esterase Negative (Negative) Urine WBC (Auto) 1-5 (0-5) /hpf Urine RBC (Auto) >30 H (0-4) /hpf U Hyaline Cast (Auto) 1-5 (0-5) /lpf U Epithel Cells (Auto) 5-10 H (0-5) /lpf Urine Bacteria (Auto) Negative (Negative) SARS-CoV-2 (PCR) POSITIVE A* (Negative) Influenza Type A (PCR) Negative (Neg) Influenza Type B (PCR) Negative (Neg) RSV (RT-PCR) Negative (Neg) 06/14/22 06/14/22 Range/Units 08:05 08:05 WBC 7.67 (4.8-10.8) K/ul RBC 4.74 (4.63-6.08) M/uL Hgb 14.8 (14.0-18.0) g/dl Hct 42.9 (40.1-51.0) % MCV 90.5 (80.0-100.0) fL MCH 31.2 (25.0-34.0) pg MCHC 34.5 (32.0-36.0) g/dL RDW Std Deviation 45.7 (36.4-46.3) fL RDW Coeff of Nadege 13.8 (11.5-14.5) % Plt Count 143 (130-400) K/uL MPV 11.1 (9.4-12.4) fL Immature Gran % (Auto) 0.1 % Neut % (Auto) 67.4 % Lymph % (Auto) 17.5 % [place] % (Auto) 14.7 % Eos % (Auto) 0.0 % Baso % (Auto) 0.3 % Neut # (Auto) 5.17 (1.4-6.5) K/uL Lymph # (Auto) 1.34 (1.2-3.4) K/uL [place] # (Auto) 1.13 H (0.24-0.82) K/uL Eos # (Auto) 0.00 (0-0.50) K/uL Baso # (Auto) 0.02 (0-0.2) K/uL Immature Gran # (Auto) 0.01 (0.00-0.02) K/uL PT 12.5 H (9.0-12.0) Seconds INR 1.2 H (0.9-1.1) APTT 31.6 H (21.0-31.0) Seconds PTT Ratio 1.1 Sodium (136-145) mmol/L Potassium (3.5-5.1) mmol/L Chloride (98-107) mmol/L Carbon Dioxide (21-32) mmol/L Anion Gap (3-11) BUN (6-23) mg/dl Creatinine (0.6-1.4) mg/dl Est Cr Clr Drug Dosing ml/min Est GFR ( Amer) ml/min Est GFR (Non-Af Amer) ml/min BUN/Creatinine Ratio (10-20) Glucose (70-99(Fasting)) mg/dl Calcium (8.5-10.1) mg/dl Phosphorus (2.5-4.9) mg/dl Magnesium (1.7-2.4) mg/dl Total Bilirubin (0.2-1.0) mg/dl AST (13-39) U/L ALT (7-52) U/L Alkaline Phosphatase (34-104) U/L Troponin I High Sens (0-20) pg/ml Total Protein (6.0-8.3) gm/dl Albumin (3.4-5.0) gm/dl Globulin (2.5-4.0) gm/dl Albumin/Globulin Ratio (0.9-2) Lipase (11-82) U/L Urine Color Urine Appearance (Clear) Urine pH (4.5-7.5) Ur Specific [place] (1.000-1.030) Urine Protein (Negative) Urine Glucose (UA) (Negative) Urine Ketones (Negative) Urine Blood (Negative) Urine Nitrite (Negative) Urine Bilirubin (Negative) Urine Urobilinogen (Negative) Ur Leukocyte Esterase (Negative) Urine WBC (Auto) (0-5) /hpf Urine RBC (Auto) (0-4) /hpf U Hyaline Cast (Auto) (0-5) /lpf U Epithel Cells (Auto) (0-5) /lpf Urine Bacteria (Auto) (Negative) SARS-CoV-2 (PCR) (Negative) Influenza Type A (PCR) (Neg) Influenza Type B (PCR) (Neg) RSV (RT-PCR) (Neg) Diagnostic Findings Chest X-Ray 06/14/22 07:59 XR chest 1V portable CLINICAL HISTORY: Fall. COMPARISON STUDY: No previous studies for comparison. FINDINGS: There is no pneumothorax or pleural effusion. There is no consolidation. Suspected nipple shadow projects over the right lower lung. There is no evidence for pulmonary edema. IMPRESSION: No acute cardiopulmonary findings. ACT 112: Negative or not required by law. Electronically signed by: Inocencio Green M.D. 06/14/2022 9:20 AM ECG Additional Comments: ECG on 06/14/2022 at 7:56 AM with atrial fibrillation, rate 78, rightward axis, otherwise normal Code Status & VTE Plan Code Status Full code VTE Prophylaxis Plan VTE Prophylaxis will be ordered: Yes PG Care Time/CCT Total # of Minutes Spent Total Time Spent with Patient: Total time spent is greater than 50% in coordination of care (as documented) at patient's floor/unit and/or counseling patient: Coding Level of Care Code INT OBSERVATION CARE 70M LVL 3 Diagnoses COVID-19 U07.1 Ambulatory dysfunction R26.2 Atrial fibrillation, permanent I48.2 Benign essential hypertension I10 BPH with obstruction/lower urinary tract symptoms N40.1; N13.8 Chronic anticoagulation Z79.01 COPD (chronic obstructive pulmonary disease) J44.9 Hyperlipidemia E78.5 Hyperlipidemia type: unspecified Hypothyroid E03.9 Hypothyroidism type: unspecified Neuropathy G62.9 Restless leg syndrome G25.81 (1) Hyperlipidemia Hyperlipidemia type: unspecified Qualified Code(s): E78.5 - Hyperlipidemia, unspecified (2) Hypothyroid Hypothyroidism type: unspecified Qualified Code(s): E03.9 - Hypothyroidism, unspecified
[2022-06-14] MEDS ORDERED: ACETAMINOPHEN 325 MG TAB PO PRN (14:18)
[2022-06-14] MEDS ORDERED: POLYETHYLENE (MIRALAX) 17 GM PACK PO PRN (14:18)
[2022-06-14] MEDS ORDERED: ONDANSETRON INJ 2 MG/ML 2 ML VIAL IV PRN (14:18)
[2022-06-14] MEDS ORDERED: MAGNESIUM HYDROXIDE SUSP 30 ML UDC PO PRN (14:18)
[2022-06-14] MEDS: amLODIPine BESYLATE 5 MG TAB PO SCH (15:35)
[2022-06-14] MEDS: APIXABAN 5 MG TABLET PO SCH ×2 (15:37→20:38)
[2022-06-14] MEDS: ATORVASTATIN 10 MG TAB PO SCH (15:37)
[2022-06-14] MEDS: GABAPENTIN 600 MG TAB PO SCH ×2 (15:38→20:37)
[2022-06-14] MEDS: PROPRANOLOL HCL 10 MG TAB PO SCH ×2 (15:38→20:37)
[2022-06-14] MEDS: TAMSULOSIN HCL 0.4 MG CAP PO SCH (15:39)
[2022-06-14] MEDS ORDERED: REMDESIVIR 200 MG in SODIUM CHLORIDE 0.9% 210 ML IV STA (22:49)
--- NOTE | 2022-06-14 23:12 | Electrocardiogram Report ---
Test Reason : Blood Pressure : / mmHG Vent. Rate : 078 BPM Atrial Rate : 416 BPM P-R Int : 000 ms QRS Dur : 096 ms QT Int : 386 ms P-R-T Axes : 000 090 029 degrees QTc Int : 440 ms Atrial fibrillation Rightward axis Abnormal ECG No previous ECGs available Confirmed by Peter Fontanez ([id number]) on 06/14/2022 11:11:50 PM Referred By: ED Confirmed By:Peter Fontanez
[2022-06-15] MEDS: LEVOTHYROXINE SODIUM 25 MCG TABLET PO SCH (06:25)
--- NOTE | 2022-06-15 07:35 | Hospitalist Progress Note ---
Date of Service June 15, 2022 Assessment & Plan (1) COVID-19: Plan: Patient presents with generalized weakness secondary to COVID-19. He is not hypoxic and does not meet criteria for dexamethasone He received 1 dose of Moderna COVID-vaccine when it was first available and had a severe allergic reaction-he has not received any doses since COVID-19 -Incomplete Moderna vaccination (09/19) due to severe allergic reaction. * Admit to PCU for telemetry monitoring given history of atrial fibrillation * Will treat with 5-day course of remdesivir * Monitor oxygen levels * Was given IV fluids in the ER and will hold home bumetanide for now * Tylenol as needed for fevers * Discharge in the morning on 5-day course of Paxlovid. Permanent atrial fibrillation -Currently rate controlled * Continue home regimen: Propranolol 10 mg p.o. twice daily, apixaban 5 mg p.o. twice daily * Admitted to telemetry Benign essential hypertensioncontinue home regimen: Amlodipine 2.5 mg p.o. suzette ly, propranolol 10 mg p.o. twice daily BPH + obstruction/lower UTScontinue home tamsulosin Hyperlipidemiacontinue home atorvastatin 10 mg Hypothyroidismcontinue home levothyroxine 25 mcg Peripheral neuropathy/restless leg syndrome continue home gabapentin 600 mg twice daily. Recommend outpatient B12 injections at discharge. Code: Full code Dispo: Med-Surg with telemetry (History of Frieda faye) . Likely discharge tomorrow FEN/GI: heart healthy DVT Prophylaxis: Eliquis 5 mg twice daily PT/OT: Consulted for generalized weakness Case management: (2) Ambulatory dysfunction: (3) Atrial fibrillation, permanent: (4) Benign essential hypertension: (5) BPH with obstruction/lower urinary tract symptoms: (6) Chronic anticoagulation: (7) COPD (chronic obstructive pulmonary disease): (8) Hyperlipidemia: (9) Hypothyroid: (10) Neuropathy: (11) Restless leg syndrome: Admission and Anticipated Discharge Date Admission Date: June 14, 2022 Supervising Physician Co-Signing Physician Notes I personally examined the patient and verified all lopez points of history and exam, discussed case, and agree with decision making with Dr Hardy. Generally feeling a bit better. Getting around okay. Whenever we see him, he notes that he feels up to going home. Later informed by nursing that after talking with family he feels like he should stay in the hospital another 1 to 2 days. Generally just weak and achy. Eating and drinking okay. Vitals noted, in general he is awake and alert pleasant no distress does appear somewhat fatigued. HEENT normocephalic atraumatic mucous membranes moist. Breathing unlabored no accessory muscle use good effort. Skin shows no rashes no pallor or icterus. Neuro without focal deficits. COVID-19 with the main clinical manifestation being weakness and malaise. Fortunately no significant respiratory illness. Eating and drinking reasonably well. Doing well with PTscored 22 out of 24 on 6 clicks. Overall appears stable for home. Work on confidence and comfort with this plan. Understandable with how weak he was at home that there would be some reticence, but definitely do not want that reticence and fear of going home to turn into a prolonged hospital stay that leads to deconditioning from being in the hospital (rather than from the initial insult of COVID) and takes him from being able to go home and deconditions him to the point of requiring rehab. DVT prophylaxison Conchitaquis for his A. fib Subjective Overnight, had 1 fever of 38.6 that resolved after 1 administration Tylenol. This morning, he is asleep upon arrival. He reports feeling much better this morning versus yesterday. He also reports he has been ambulating under his own power to and from the bathroom without any difficulty, dizziness, or shortness of breath. Review of Systems Review of Systems: All systems reviewed & are unremarkable except as noted in HPI & below Physical Exam Physical Exam: General: Well-appearing, alert, interactive, and in no acute distress. HEENT: Normocephalic, atraumatic. EOM intact. Good conjugate gaze. Nares patent. Moist mucosal membranes. Neck: Supple. No lymphadenopathy. Normal ROM. CV: Regular rate and rhythm. Normal S1 and S2. No murmurs gallops or rubs. Respiratory: Normal respiratory effort. Mild bibasilar crackles, L >R. No rhonchi, or wheezes. Abdomen: Soft, nondistended abdomen. No bruits heard on auscultation. No tenderness to deep palpation. Extremities: Capillary refill <2 sec. 2+ dp equal bilaterally. No pedal edema. Neuro: Alert and oriented x3. Skin: Clean, dry, and intact. No rashes, bruises, or erythema. Results & Data Results & Data ([facility]) Vital Signs (Past 12 Hours) Vital Signs Temp Pulse Resp BP Pulse Ox O2 Del Method 06/15/22 07:29 37.1 C 74 17 154/84 H 98 Room Air 06/15/22 06:30 173/90 H 06/15/22 03:14 37.5 C 60 175/86 H 98 Room Air 06/15/22 00:48 Room Air 06/14/22 22:48 75 18 171/97 H 96 Room Air 06/14/22 21:54 38.6 C H 06/14/22 20:00 36.9 C 73 178/96 H Room Air Resident Activity Tracking Resident Involvement: Resident Care Provided Care Provided: Adult Hospital Medicine (1) Hyperlipidemia Hyperlipidemia type: unspecified Qualified Code(s): E78.5 - Hyperlipidemia, unspecified (2) Hypothyroid Hypothyroidism type: unspecified Qualified Code(s): E03.9 - Hypothyroidism, unspecified
[2022-06-15] MEDS: ATORVASTATIN 10 MG TAB PO SCH (07:43)
[2022-06-15] MEDS: amLODIPine BESYLATE 5 MG TAB PO SCH (07:43)
[2022-06-15] MEDS: APIXABAN 5 MG TABLET PO SCH ×2 (07:43→21:39)
[2022-06-15] MEDS: TAMSULOSIN HCL 0.4 MG CAP PO SCH (07:43)
[2022-06-15] MEDS: PROPRANOLOL HCL 10 MG TAB PO SCH ×2 (07:44→21:39)
[2022-06-15] MEDS: GABAPENTIN 600 MG TAB PO SCH ×2 (07:44→21:39)
[2022-06-15 08:15] LABS: Albumin Globulin Ratio 1.4 (0.9-2); Albumin Level 3.4 gm/dl (3.4-5.0); BUN Creatinine Ratio 16.5 (10-20); C Reactive Protein 6.83 mg/dl (0-0.5); Calcium 8.3 mg/dl (8.5-10.1); Creatinine Clr Calc Pharmacy 67.6 ml/min; Est GFR (Non-African American) 69.9 ml/min; Globulin 2.5 gm/dl (2.5-4.0); Magnesium 1.9 mg/dl (1.7-2.4); Potassium 3.6 mmol/L (3.5-5.1); Total Protein 5.9 gm/dl (6.0-8.3)
[2022-06-15 08:21] LABS: Hematocrit (blood only) 42.6 % (40.1-51.0); Hemoglobin 14.4 g/dl (14.0-18.0); Mean Corpuscular Hgb Conc 33.8 g/dL (32.0-36.0); Mean Corpuscular Volume 91.6 fL (80.0-100.0); Mean Platelet Volume 10.4 fL (9.4-12.4); Platelet Count 123 K/uL (130-400); RDW Coefficient of Variation 13.8 % (11.5-14.5); Red Blood Count 4.65 M/uL (4.63-6.08); White Blood Count 5.63 K/ul (4.8-10.8)
[2022-06-15 08:23] LABS: Basophils # (auto) 0.03 K/uL (0-0.2); Basophils % (auto) 0.5 %; Eosinophils # (auto) 0.02 K/uL (0-0.50); Eosinophils % (auto) 0.4 %; Lymphocytes # (auto) 1.34 K/uL (1.2-3.4); Lymphocytes % (auto) 23.8 %; Monocytes # (auto) 1.02 K/uL (0.24-0.82); Monocytes % (auto) 18.1 %; Neutrophils # (auto) 3.22 K/uL (1.4-6.5); Neutrophils % (auto) 57.2 %; RBC Morphology Unremarkable
[2022-06-15] MEDS: CYANOCOBALAMIN 1000 MCG/ML VIAL IM SCH (10:57)
[2022-06-15] MEDS: CHOLECALCIFEROL 5,000 UNITS 125 MCG TAB PO SCH (10:57)
--- NOTE | 2022-06-15 16:52 | Billing Data ---
Date of Service June 15, 2022 Coding Level of Care Code 87948 Subseq Hosp Care Lvl 3
[2022-06-15] MEDS ORDERED: REMDESIVIR 100 MG in SODIUM CHLORIDE 0.9% 230 ML IV SCH (20:00)
[2022-06-16] MEDS: LEVOTHYROXINE SODIUM 25 MCG TABLET PO SCH (06:00)
[2022-06-16] MEDS: amLODIPine BESYLATE 5 MG TAB PO SCH (09:00)
[2022-06-16] MEDS: ATORVASTATIN 10 MG TAB PO SCH (09:01)
[2022-06-16] MEDS: PROPRANOLOL HCL 10 MG TAB PO SCH (09:01)
[2022-06-16] MEDS: CHOLECALCIFEROL 5,000 UNITS 125 MCG TAB PO SCH (09:01)
[2022-06-16] MEDS: GABAPENTIN 600 MG TAB PO SCH (09:01)
[2022-06-16] MEDS: TAMSULOSIN HCL 0.4 MG CAP PO SCH (09:01)
[2022-06-16] MEDS: APIXABAN 5 MG TABLET PO SCH (09:01)
[2022-06-16] MEDS: CYANOCOBALAMIN 1000 MCG/ML VIAL IM SCH (09:03)
--- NOTE | 2022-06-16 10:02 | Discharge Summary ---
Date of Service June 16, 2022 Admission HPI Per Admitting Provider This patient is an 86-year-old male with a history of HTN, neuropathy, permanent atrial fibrillation, BPH, bronchiectasis, COPD, RLS, hyperlipidemia, hypothyroidism, and B12 deficiency who presents to the ER with Generalized weakness, mild headache, fevers and chills, decreased appetite over the last 3 days but especially worse today. He slid out of his chair last night and was so weak he could not get off the floor and slipped there all night until his called an ambulance at 6 in the morning. He did not fall or hit his head. He has no pain anywhere. He suspected he had COVID-19 and did indeed test positive for it in the ER. He denies any shortness of breath or cough, no sore throat or sinus congestion. No nausea or vomiting in fact feels hungry. Denies abdominal pains or diarrhea. His vitals were stable. Chest x-ray was negative for pneumonia. He was treated in the ER with 500 mL of normal saline and acetaminophen 1000 mg p.o. x1. He will be admitted for generalized weakness secondary to COVID-19 and evaluation with PT/OT. Admission Exam Per Admitting Provider Constitutional:L WD/WN, vitals as above Eyes: PERRL, conjunctivae normal, anicteric sclerae ENMT: external ear and nose normal, oropharynx normal Neck: trachea midline, no thyromegaly Respiratory: normal respiratory effort, lungs clear to auscultation Cardiovascular: Rate/Rhythm: regular rate and + irregularly irregular Heart Sounds: no murmur Extremities: no edema Chest (Breasts): Chest: normal inspection of chest B Gastrointestinal (Abdomen): normal bowel sounds, soft, nontender, no hepatosplenomegaly Musculoskeletal: Extremities: extremities normal to inspection; no cyanosis and no clubbing Skin: no rashes, warm and dry Neurologic: moves all extremities and awake; no focal motor deficits Psychiatric: A+Ox3, euthymic affect Lymphatic: no lymphedema Principal Diagnosis COVID-19 pneumonia, weakness Discharge Exam General: Well-appearing, alert, interactive, and in no acute distress. HEENT: Normocephalic, atraumatic. EOM intact. Good conjugate gaze. Nares patent. Moist mucosal membranes. Neck: Supple. No lymphadenopathy. Normal ROM. CV: Regular rate and rhythm. Normal S1 and S2. No murmurs gallops or rubs. Respiratory: Normal respiratory effort. Mild bibasilar crackles. No rhonchi, or wheezes. Abdomen: Soft, nondistended abdomen. No bruits heard on auscultation. No tenderness to deep palpation. Extremities: Capillary refill <2 sec. 2+ dp equal bilaterally. No pedal edema. Neuro: Alert and oriented x3. Skin: Clean, dry, and intact. No rashes, bruises, or erythema. Discharge Data Allergies Allergy/AdvReac Type Severity Reaction Status Date / Time COVID-19 vaccine, mRNA, AdvReac Severe Verified 06/14/22 09:21 [id number], [From Moderna COVID-19 Booster([facility])] Consultations 06/14/22 11:16 ED Decision to Admit Stat Hospital Course (1) COVID-19: Patient presents with generalized weakness secondary to COVID-19. He is not hypoxic and does not meet criteria for dexamethasone He received 1 dose of Moderna COVID-vaccine when it was first available and had a severe allergic reaction-he has not received any doses since COVID-19 -Incomplete Moderna vaccination (09/19) due to severe allergic reaction. * Admit to PCU for telemetry monitoring given history of atrial fibrillation * Will treat with 5-day course of remdesivir * Monitor oxygen levels * Was given IV fluids in the ER and will hold home bumetanide for now * Tylenol as needed for fevers * Discharged on 5-day course of Paxlovid. Permanent atrial fibrillation -Currently rate controlled * Continue home regimen: Propranolol 10 mg p.o. twice daily, apixaban 5 mg p.o. twice daily * Admitted to telemetry Benign essential hypertensioncontinue home regimen: Amlodipine 2.5 mg p.o. daily, propranolol 10 mg p.o. twice daily BPH + obstruction/lower UTScontinue home tamsulosin Hyperlipidemiacontinue home atorvastatin 10 mg Hypothyroidismcontinue home levothyroxine 25 mcg Peripheral neuropathy/restless leg syndrome continue home gabapentin 600 mg twice daily. Recommend outpatient B12 injections at discharge. (2) Ambulatory dysfunction: (3) Atrial fibrillation, permanent: (4) Benign essential hypertension: (5) BPH with obstruction/lower urinary tract symptoms: (6) Chronic anticoagulation: (7) COPD (chronic obstructive pulmonary disease): (8) Hyperlipidemia: (9) Hypothyroid: (10) Neuropathy: (11) Restless leg syndrome: Total Time Total Time Spent Total Time Spent (In Minutes): <30 Discharge Plan Discharge Items Patient Disposition: Home - Self-Care Reason For Visit: WEAKNESS, COVID Discharge Diagnosis: Decompensation, COVID-19 pneumonia Activity: Per Instructions section Non-emergency contact: Primary Care Provider Call non-emergency contact if: you have any medication questions, your symptoms worsen and your temperature is above 101 Follow-up/Referrals: Kaylee Page DO [Primary Care Provider] - 07/04/22 9:20 am Diet: Regular Addtl Attending Provider Instructions: Dear Filiberto, Your brought to the emergency room due to profound weakness, fever, and fatigue. You were evaluated by the emergency room physicians and found to be COVID-19 positive. We believe this was the primary cause of your weakness. You were started on some antiviral therapy while you are admitted to the hospital, and were evaluated by our physical therapists, who felt that you had improved considerably from a strength standpoint to be safely discharged home. From a medical standpoint, you are clinically stable enough to be safely discharged home as well. * We sent a prescription called Paxlovid to your pharmacy. Please take Paxlovid, 300/100 mg, twice a day, for 5 days. * You should make an appointment with your primary care doctor within the next 7 to 14 days. It was a pleasure to take care of you here at [facility]. If you have any questions or concerns, you can reach us at [phone]. We wish you a full and speedy recovery. Pending Studies at Discharge: No Stand-Alone Forms: My [facility], Smoking Cessation Medications and DC Order Prescriptions: New Paxlovid (EUA) 300 mg (150 mg x 2)-100 mg tablets,dose pack See Rx Instructions .ROUTE .COMPLEX Qty: 30 0RF Rx Instructions: take TWO 150 mg tablets of nirmatrelvir with ONE 100 mg tablet of ritonavir twice daily for 5 days Continued polyethylene glycol 3350 17 gram powder in packet 17 gm PO .COMPLEX Qty: 100 1RF Rx Instructions: MIX 1 CAPFUL IN 8 OUNCES OF WATER AND DRINKS DAILY DIRECTED; gabapentin 600 mg tablet 600 mg PO BID Qty: 180 1RF tamsulosin 0.4 mg capsule 0.4 mg PO QAM Qty: 90 1RF Eliquis 5 mg tablet 5 mg PO BID Qty: 180 3RF levothyroxine 25 mcg tablet 25 mcg PO QAM Qty: 90 1RF amlodipine 2.5 mg tablet 2.5 mg PO DAILY Qty: 90 1RF atorvastatin 10 mg tablet 10 mg PO QAM Qty: 90 3RF bumetanide 0.5 mg tablet 0.5 mg PO DAILY PRN (Reason: swelling) Qty: 90 0RF triamcinolone acetonide 0.1 % cream See Rx Instructions .ROUTE .COMPLEX PRN (Reason: Rash) Dose Instruction: APPLY A THIN LAYER TO AFFECTED AREA(S) TWICE DAILY. Rx Instructions: APPLY A THIN LAYER TO AFFECTED AREA(S) TWICE DAILY. PRN; propranolol 10 mg tablet 10 mg PO BID Discharge Orders: Discharge Order (Routine); Ordered 06/16/22 Ordered By: Flex Hardy Admission Data Admit Date/Time: 06/14/22 11:52 Attending Provider: Doug Sung Admit Provider: Hanane Bass Primary Care Provider: Kaylee Page Other Providers: Hanane Bass Other Interventions: Discharge Summary Assessment (RN) Last Done: 06/16/22 11:00 Supervising Physician Co-Signing Physician Notes I personally examined the patient and verified all lopez points of history and exam, discussed case, and agree with decision making with Dr Hardy. Feeling better and would very much like to go home. Getting around well eating and drinking well. Vitals noted, in general he is awake and alert pleasant no distress does appear somewhat fatigued. HEENT normocephalic atraumatic mucous membranes moist. Breathing unlabored no accessory muscle use good effort. Skin shows no rashes no pallor or icterus. Neuro without focal deficits. COVID-19 with the main clinical manifestation being weakness and malaise. Fortunately no significant respiratory illness. Eating and drinking reasonably well. Doing well with PTscored 22 out of 24 on 6 clicks. Overall appears stable for home. Today feels up to going home. Discharge as above. DVT prophylaxisgavin Mendez for his A. fib Resident Activity Tracking Resident Involvement: Resident Care Provided Care Provided: Adult [facility]
--- NOTE | 2022-06-16 16:42 | Billing Data ---
Date of Service June 16, 2022 Coding Level of Care Code 20580 OBS Care - Discharge
== END 2022-06-16 12:21 | disposition home or self-care (01) ==
LOC: ED 07:23 → EDINP 07:23 → MERGE 07:23 → SUATTDRO 11:52 → 2S 14:19

== ENCOUNTER 2023-01-08 18:21 | Inpatient (IN) ==
[2023-01-08] MEDS ORDERED: SODIUM CHLORIDE 0.9% 1000ML 1,000 ML IV ONE (18:39)
[2023-01-08] MEDS ORDERED: PANTOprazole 40 MG in SYRINGE 0 ML IV ONE (18:42)
--- NOTE | 2023-01-08 18:42 | Emergency Department Note ---
Impression & Plan Acute GI bleeding, Melena ED Provider Note HISTORY OF PRESENT ILLNESS: Patient is an 87-year-old male presenting with hematemesis and melena. Patient reports that since yesterday he has been having dark tarry stools and coffee- ground emesis. He reports that he has been feeling lightheaded throughout today. He does state that he tried taking a Pepto-Bismol earlier today without any relief of symptoms. He is on Eliquis for history of atrial fibrillation. Denies any significant abdominal pain. Denies any dysuria or hematuria. Denies any recent fevers. He has never required a blood transfusion. Patient is denying any chest pain or shortness of breath. ROS: as above PHYSICAL EXAM: Constitutional: Patient appears in no acute distress. HENT: Head: Normocephalic and atraumatic. Eyes: EOMI, PERRL Mouth/Throat: Mucous membranes dry Neck: Trachea midline. Neck supple. Cardiovascular: Tachycardic. No murmurs, rubs or gallops. Intact distal pulses. Pulmonary/Chest: No respiratory distress. Breath sounds clear and equal bilaterally. No wheezes or rales. Abdominal: BS +. Abdomen soft, no tenderness, rebound or guarding. Rectal: Gross melena on glove. Heme occult positive. No palpable masses or hemorrhoids. Musculoskeletal: No edema, tenderness or deformity noted. Skin: Warm and dry. No rash, erythema, pallor or cyanosis Psychiatric: Appropriate mood and affect for situation. Neurological: Alert and keenly responsive. CN II-XII grossly intact, moving all extremities equally and fully. MDM: - Vitals signs showed hypertension and borderline tachycardia - History obtained via patient. Patient presents with hematemesis and melena. Patient had an episode of coffee-ground emesis today. He reportedly had dark tarry stools since yesterday. He has been feeling lightheaded throughout the day. He is on Eliquis for history of A-fib. Denies any abdominal pain. Denies any dysuria or hematuria. - Chronic conditions affecting care: Afib (on Eliquis); COPD; HTN - Differential diagnoses include, but are not limited to: esophagitis; bleeding gastric ulcer; duodenal bleed - Order placed for continuous cardiac monitoring. At this time, monitor showed rate of 100 bpm with atrial fibrillation rhythm, per my interpretation. - External medical records reviewed. No previously documented endoscopy is in our EMR. - EKG reviewed by myself showed atrial fibrillation. Rate 98 bpm. QTc 436. No acute ischemic changes. - Laboratory workup interpreted by myself showed normal WBC; stable hemoglobin; normal electrolytes; elevated BUN (25); normal creatinine; normal liver function; normal lipase; normal troponin - Type and screen ordered. - Rectal exam positive for melena. - IV protonix administered. Given 1L NS. - Discussion was had with social media assistant about patient's case and need for admission. - Hospitalist, Dr. Herrera, consulted for admission. - [facility] ASSESSMENT AND PLAN: Diagnosis: GI bleed; melena Plan: admit Past Med/Surg History Medical History Atrial fibrillation, permanent Benign essential hypertension BPH with obstruction/lower urinary tract symptoms Bronchiectasis Chronic anticoagulation COPD (chronic obstructive pulmonary disease) Depression with anxiety Elevated PSA History of Lyme disease History of pneumonia Hyperlipidemia Hypothyroid Insomnia Neuropathy PAC (premature atrial contraction) Prostate nodule Pulmonary nodules Restless leg syndrome Surgical History H/O hernia repair H/O laminectomy Hx of hand surgery Family History Mother Breast cancer Daughter Breast cancer Denies family history of Ovarian cancer Prostate cancer Myocardial infarction Colorectal cancer Social History Smoking Status: Never smoker Second Hand Exposure: No; Hx Alcohol Use: Yes Alcohol type: beer and hard liquor Hx Substance Use: No Preferred Language: Welsh Communication Ability: Effective Hearing Ability: Normal [place] Bus Driver Required: No Beliefs That Will Affect Care: None marital status: Current Living Situation: Spouse current occupational status: retired How many Children do You have: 5 Feels Safe at Home: Yes Childhood Exposure to Second-Hand Smoke: No Diet Comment: Does not follow diet. caffeine: Yes (Coffee x 1 cup per day.) during the past year weight has: remained stable Dental Care, Regularly: Yes Physical Activity Frequency: 1-2 Times per Week Seatbelt Use: always Sunscreen Use: Yes Assistive Devices: Cane Allergies Allergies Allergy/AdvReac Type Severity Reaction Status Date / Time COVID-19 vaccine, mRNA, AdvReac Severe Verified 07/06/22 12:51 [id number], [From [facility] COVID-19 Booster([facility])] Home Meds Home Medications Medication Instructions Recorded Confirmed propranolol 10 mg tablet 10 mg PO AMPM 06/14/22 01/08/23 polyethylene glycol 3350 17 gram 17 gm PO DAILY 01/08/23 01/08/23 oral powder packet Previous Rx's Medication Instructions Recorded bumetanide 0.5 mg tablet 0.5 mg PO DAILY PRN swelling #90 05/27/21 tabs apixaban 5 mg tablet (Eliquis) 5 mg PO BID #180 tabs 02/18/22 atorvastatin 10 mg tablet 10 mg PO QAM #90 tabs 05/10/22 amlodipine 2.5 mg tablet 2.5 mg PO DAILY #90 tabs 06/14/22 cyanocobalamin (vitamin B-12) 1,000 mcg IM MONTHLY #12 ea 07/28/22 1,000 mcg/mL injection kit gabapentin 600 mg tablet 600 mg PO BID #180 tabs 09/05/22 triamcinolone acetonide 0.1 % See Rx Instructions .Route 09/05/22 topical cream .COMPLEX PRN Rash #30 grams levothyroxine 25 mcg tablet 25 mcg PO QAM #90 tabs 09/20/22 tamsulosin 0.4 mg capsule 0.4 mg PO QAM #90 caps 11/28/22 Results & Data (ED) Vital Signs Vital Signs - 24 hr 01/08/23 18:27 01/08/23 18:35 01/08/23 18:39 Temperature 36.7 C Temperature Source Oral Pulse Rate 107 H 98 H Pulse Rate [Apical] Pulse Rate from SpO2 Sensor Respiratory Rate 24 Respiratory Effort / Characteristics Non-Labored Spontaneous Respiratory Depth Normal Respiratory Pattern Regular Blood Pressure 178/110 H Blood Pressure [Right Arm] Blood Pressure Mean 132 Blood Pressure Mean [Right Arm] Blood Pressure Position Semi-fowlers Blood Pressure Position [Right Arm] Pulse Oximetry 96 96 Oxygen Delivery Method Room Air Room Air Sepsis Recent Fever Within 48 Hours No Sepsis New/Unexplained Change in Mental Status N/A Sepsis Action Taken by Nursing No Action Required 01/08/23 19:04 01/08/23 19:16 01/08/23 19:16 Temperature Temperature Source Pulse Rate 97 H Pulse Rate [Apical] 92 H Pulse Rate from SpO2 Sensor 98 H Respiratory Rate 18 28 H Respiratory Effort / Characteristics Non-Labored Spontaneous Respiratory Depth Normal Respiratory Pattern Regular Blood Pressure 172/105 H Blood Pressure [Right Arm] 181/120 H Blood Pressure Mean 127 Blood Pressure Mean [Right Arm] 140 Blood Pressure Position Blood Pressure Position [Right Arm] Lying Pulse Oximetry 94 96 Oxygen Delivery Method Room Air Sepsis Recent Fever Within 48 Hours Sepsis New/Unexplained Change in Mental Status Sepsis Action Taken by Nursing 01/08/23 20:00 01/08/23 20:00 01/08/23 20:30 Temperature Temperature Source Pulse Rate 101 H Pulse Rate [Apical] Pulse Rate from SpO2 Sensor 101 H Respiratory Rate 39 H Respiratory Effort / Characteristics Respiratory Depth Respiratory Pattern Blood Pressure 171/120 H 190/117 H Blood Pressure [Right Arm] Blood Pressure Mean 137 141 Blood Pressure Mean [Right Arm] Blood Pressure Position Blood Pressure Position [Right Arm] Pulse Oximetry 94 Oxygen Delivery Method Room Air Sepsis Recent Fever Within 48 Hours Sepsis New/Unexplained Change in Mental Status Sepsis Action Taken by Nursing 01/08/23 20:30 01/08/23 20:48 01/08/23 20:48 Temperature Temperature Source Pulse Rate 101 H Pulse Rate [Apical] Pulse Rate from SpO2 Sensor 107 H 100 H Respiratory Rate 31 H 26 H Respiratory Effort / Characteristics Respiratory Depth Respiratory Pattern Blood Pressure 182/112 H Blood Pressure [Right Arm] Blood Pressure Mean 135 Blood Pressure Mean [Right Arm] Blood Pressure Position Blood Pressure Position [Right Arm] Pulse Oximetry 96 95 Oxygen Delivery Method Room Air Room Air Sepsis Recent Fever Within 48 Hours Sepsis New/Unexplained Change in Mental Status Sepsis Action Taken by Nursing Laboratory Data 01/08/23 18:31 01/08/23 19:47 Lab Results 01/08/23 01/08/23 01/08/23 Range/Units 18:31 18:31 18:31 WBC 9.97 (4.8-10.8) K/ul RBC 4.51 L (4.70-6.10) M/uL Hgb 14.2 (14.0-18.0) g/dl Hct 41.1 L (42.0-52.0) % MCV 91.1 (80.0-100.0) fL MCH 31.5 (25.0-34.0) pg MCHC 34.5 (32.0-36.0) g/dL RDW Std Deviation 46.5 H (36.4-46.3) fL RDW Coeff of Nadege 13.8 (11.5-14.5) % Plt Count 163 (130-400) K/uL MPV 10.8 (9.4-12.4) fL PT 13.0 H (9.0-12.0) Seconds INR 1.2 H (0.9-1.1) APTT 29.0 (21.0-31.0) Seconds PTT Ratio 1.0 Sodium 138 (136-145) mmol/L Potassium TNP Chloride 105 (98-107) mmol/L Carbon Dioxide 25 (21-32) mmol/L Anion Gap 8 (3-11) BUN 25 H (6-23) mg/dl Creatinine 0.96 (0.6-1.4) mg/dl Est Cr Clr Drug Dosing 68.8 ml/min Est GFR ( Amer) 81.5 ml/min Est GFR (Non-Af Amer) 70.3 ml/min BUN/Creatinine Ratio 26.0 H (10-20) Glucose 85 (70-99(Fasting)) mg/dl Calcium 8.3 L (8.6-10.3) mg/dl Total Bilirubin 1.4 H (0.2-1.0) mg/dl AST TNP ALT 15 (7-52) U/L Alkaline Phosphatase 68 (34-104) U/L Troponin I High Sens 10.4 (0-20) pg/ml Total Protein 6.5 (6.0-8.3) gm/dl Albumin 3.8 (3.4-5.0) gm/dl Globulin 2.7 (2.5-4.0) gm/dl Albumin/Globulin Ratio 1.4 (0.9-2) Lipase 9 L (11-82) U/L POC Stool Occult Blood (Negative) Blood Type Blood Type Recheck Antibody Screen 01/08/23 01/08/23 01/08/23 Range/Units 18:39 18:56 19:08 WBC (4.8-10.8) K/ul RBC (4.70-6.10) M/uL Hgb (14.0-18.0) g/dl Hct (42.0-52.0) % MCV (80.0-100.0) fL MCH (25.0-34.0) pg MCHC (32.0-36.0) g/dL RDW Std Deviation (36.4-46.3) fL RDW Coeff of Nadege (11.5-14.5) % Plt Count (130-400) K/uL MPV (9.4-12.4) fL PT (9.0-12.0) Seconds INR (0.9-1.1) APTT (21.0-31.0) Seconds PTT Ratio Sodium (136-145) mmol/L Potassium Chloride (98-107) mmol/L Carbon Dioxide (21-32) mmol/L Anion Gap (3-11) BUN (6-23) mg/dl Creatinine (0.6-1.4) mg/dl Est Cr Clr Drug Dosing ml/min Est GFR ( Amer) ml/min Est GFR (Non-Af Amer) ml/min BUN/Creatinine Ratio (10-20) Glucose (70-99(Fasting)) mg/dl Calcium (8.6-10.3) mg/dl Total Bilirubin (0.2-1.0) mg/dl AST ALT (7-52) U/L Alkaline Phosphatase (34-104) U/L Troponin I High Sens (0-20) pg/ml Total Protein (6.0-8.3) gm/dl Albumin (3.4-5.0) gm/dl Globulin (2.5-4.0) gm/dl Albumin/Globulin Ratio (0.9-2) Lipase (11-82) U/L POC Stool Occult Blood Positive A (Negative) Blood Type A Negative Blood Type Recheck A Negative Antibody Screen NEGATIVE 01/08/23 Range/Units 19:47 WBC (4.8-10.8) K/ul RBC (4.70-6.10) M/uL Hgb (14.0-18.0) g/dl Hct (42.0-52.0) % MCV (80.0-100.0) fL MCH (25.0-34.0) pg MCHC (32.0-36.0) g/dL RDW Std Deviation (36.4-46.3) fL RDW Coeff of Nadege (11.5-14.5) % Plt Count (130-400) K/uL MPV (9.4-12.4) fL PT (9.0-12.0) Seconds INR (0.9-1.1) APTT (21.0-31.0) Seconds PTT Ratio Sodium (136-145) mmol/L Potassium 3.5 Chloride (98-107) mmol/L Carbon Dioxide (21-32) mmol/L Anion Gap (3-11) BUN (6-23) mg/dl Creatinine (0.6-1.4) mg/dl Est Cr Clr Drug Dosing ml/min Est GFR ( Amer) ml/min Est GFR (Non-Af Amer) ml/min BUN/Creatinine Ratio (10-20) Glucose (70-99(Fasting)) mg/dl Calcium (8.6-10.3) mg/dl Total Bilirubin (0.2-1.0) mg/dl AST 22 ALT (7-52) U/L Alkaline Phosphatase (34-104) U/L Troponin I High Sens (0-20) pg/ml Total Protein (6.0-8.3) gm/dl Albumin (3.4-5.0) gm/dl Globulin (2.5-4.0) gm/dl Albumin/Globulin Ratio (0.9-2) Lipase (11-82) U/L POC Stool Occult Blood (Negative) Blood Type Blood Type Recheck Antibody Screen Administered Medications Discontinued Medications Sodium Chloride (Nss 1000ml) 1,000 mls @ 999 mls/hr IV .Q1H1M ONE Stop: 01/08/23 19:39 Last Infusion: 01/08/23 20:45 Dose: 0 mls/hr Documented By: Admin: 01/08/23 19:17 Dose: 999 mls/hr Documented By: Pantoprazole Sodium 40 mg/ (Syringe) 10 mls @ 5 mls/min IV NOW ONE Stop: 01/08/23 18:43 Last Admin: 01/08/23 19:17 Dose: 5 mls/min Documented By: Discharge Plan Visit Data Chief Complaint: GI Bleed ED Provider: Marlen Hummel Discharge Problem: Acute GI bleeding, Melena Forms Stand Alone Forms: My [facility] [employer] Prescriptions Prescriptions: No Action Eliquis 5 mg tablet 5 mg PO BID Qty: 180 3RF amlodipine 2.5 mg tablet 2.5 mg PO DAILY Qty: 90 1RF cyanocobalamin (vitamin B-12) 1,000 mcg/mL kit 1,000 mcg IM MONTHLY Qty: 12 0RF triamcinolone acetonide 0.1 % cream See Rx Instructions .ROUTE .COMPLEX PRN (Reason: Rash) Qty: 30 3RF Dose Instruction: APPLY A THIN LAYER TO AFFECTED AREA(S) TWICE DAILY. Rx Instructions: APPLY A THIN LAYER TO AFFECTED AREA(S) TWICE DAILY. PRN; gabapentin 600 mg tablet 600 mg PO BID Qty: 180 1RF levothyroxine 25 mcg tablet 25 mcg PO QAM Qty: 90 1RF tamsulosin 0.4 mg capsule 0.4 mg PO QAM Qty: 90 1RF atorvastatin 10 mg tablet 10 mg PO QAM Qty: 90 3RF bumetanide 0.5 mg tablet 0.5 mg PO DAILY PRN (Reason: swelling) Qty: 90 0RF propranolol 10 mg tablet 10 mg PO AMPM polyethylene glycol 3350 17 gram powder in packet 17 gm PO DAILY Rx Instructions: MIX 1 CAPFUL IN 8 OUNCES OF WATER AND DRINKS DAILY DIRECTED; Referrals Referrals: Kaylee Page DO [Primary Care Provider] -
[2023-01-08 18:53] LABS: Hematocrit (blood only) 41.1 % (42.0-52.0); Hemoglobin 14.2 g/dl (14.0-18.0); Mean Corpuscular Hemoglobin 31.5 pg (25.0-34.0); Mean Corpuscular Hgb Conc 34.5 g/dL (32.0-36.0); Mean Corpuscular Volume 91.1 fL (80.0-100.0); Mean Platelet Volume 10.8 fL (9.4-12.4); Platelet Count 163 K/uL (130-400); RDW Coefficient of Variation 13.8 % (11.5-14.5); RDW Standard Deviation 46.5 fL (36.4-46.3); Red Blood Count 4.51 M/uL (4.70-6.10); White Blood Count 9.97 K/ul (4.8-10.8)
[2023-01-08 19:17] LABS: Alanine Aminotransferase 15 U/L (7-52); Albumin Globulin Ratio 1.4 (0.9-2); Albumin Level 3.8 gm/dl (3.4-5.0); Alkaline Phosphatase 68 U/L (34-104); Anion Gap 8 (3-11); Bilirubin,Total 1.4 mg/dl (0.2-1.0); Blood Urea Nitrogen 25 mg/dl (6-23); Calcium 8.3 mg/dl (8.6-10.3); Carbon Dioxide 25 mmol/L (21-32); Chloride 105 mmol/L (98-107); Creatinine Clr Calc Pharmacy 68.8 ml/min; Est GFR (African American) 81.5 ml/min; Est GFR (Non-African American) 70.3 ml/min; Globulin 2.7 gm/dl (2.5-4.0); Glucose 85 mg/dl (70-99(Fasting)); Lipase 9 U/L (11-82); Sodium 138 mmol/L (136-145); Total Protein 6.5 gm/dl (6.0-8.3); Troponin I High Sensitivity 10.4 pg/ml (0-20)
[2023-01-08 19:18] LABS: INR 1.2 (0.9-1.1)
[2023-01-08 20:35] LABS: Potassium 3.5 mmol/L (3.5-5.1)
--- NOTE | 2023-01-08 21:52 | History & Physical Report ---
Date of Service January 08, 2023 Assessment & Plan (1) Acute GI bleeding: Plan: 87 y/o M w/ PmHx permanent A. fib on Eliquis, hypothyroid, BPH, Hypertension, COPD, restless leg syndrome, B12 deficiency, neuropathy, HLD, depression/anxiety admitted for possible GI bleed. Acute GI bleed/Melena: -Hgb 14.2 on arrival however patient without much intake, lightheaded. -Hemoccult positive. -Dry on exam, most likely dehydrated and normal hemoglobin due to conenctrated blood. -Consented for blood in case hemoglobin drops after fluid given. -Ordered LR 125ml/hr x2bags, reassess volume status and need for further IV after. -Consulted GI for potential GI bleed. -Hold Eliquis. SCDs for DVT prophylaxis -NPO for potential further workup with scope. -Protonix gtt. -Admit to PCU. A. fib/HTN/HLD: -Continue home propranolol, atorvastatin. -Hold Eliquis. BPH: -Continue home tamsulosin. -Difficulty voiding on and before arrival. -Inserted palumbo for voiding troubles. COPD: -Lungs clear, no wheezing. SoB may be related to low hemoglobin and dehydrated state. -Continue to monitor O2 sats. Neuropathy: -Continue home amitriptyline, gabapentin. Hypothyroid: -Continue home levothryoxine. B12 deficiency: -continue home B12. F/E/N/GI: NPO for potential scope. Protonix gtt. DVT Prophylaxis: SCDs knee. Hold Eliquis in face of potential bleed. Code Status: Full Code. Dispo: PCU. (2) Melena: (3) Atrial fibrillation, permanent: (4) Benign essential hypertension: (5) B12 deficiency: (6) BPH with obstruction/lower urinary tract symptoms: (7) COPD (chronic obstructive pulmonary disease): (8) Depression with anxiety: (9) Hyperlipidemia: (10) Hypothyroid: History of Present Illness Chief Complaint: coffee ground emesis and black tarry stools Primary Care Provider: DO Filiberto Borden is an 87 year old male w/ PmHx permanent A. fib on Eliquis, hypothyroid, BPH, Hypertension, COPD, restless leg syndrome, B12 deficiency, neuropathy, HLD, depression/anxiety who comes in to the ED for coffee ground emesis and black tarry stools. Was in usual state of health living at home with up until 2 days ago when he developed nausea, vomiting, decreased appetite, lightheadedness and shortness of breath. His vomiting has had a brownish/reddish tint to coloration and his stools have been dark and tarry in appearance. He denies knowledge of any trigger for these symptoms. Denies fevers, chills, chest pain, dysuria. Last dose of Eliquis was this morning. Denies alcohol use, 2 doses ibuprofen yesterday. In the ED hemoglobin 14.2, PT 13.0, INR 1.2, T. Bili 1.4, positive Hemoccult. Given 40mg IV push pantoprazole, 1L NSS, 4mg zofran. Allergies Allergy/AdvReac Type Severity Reaction Status Date / Time COVID-19 vaccine, mRNA, AdvReac Severe Verified 07/06/22 12:51 [id number], [From [facility] [place] COVID-19 Booster([facility])] Home Medications Medication Instructions Recorded Confirmed Type bumetanide 0.5 mg tablet 0.5 mg PO DAILY PRN swelling #90 05/27/21 01/08/23 Rx tabs apixaban 5 mg tablet (Eliquis) 5 mg PO BID #180 tabs 02/18/22 01/08/23 Rx atorvastatin 10 mg tablet 10 mg PO QAM #90 tabs 05/10/22 01/08/23 Rx propranolol 10 mg tablet 10 mg PO AMPM 06/14/22 01/08/23 History cyanocobalamin (vitamin B-12) 1,000 mcg IM MONTHLY #12 ea 07/28/22 01/08/23 Rx 1,000 mcg/mL injection kit gabapentin 600 mg tablet 600 mg PO BID #180 tabs 09/05/22 01/08/23 Rx triamcinolone acetonide 0.1 % See Rx Instructions .Route 09/05/22 01/08/23 Rx topical cream .COMPLEX PRN Rash #30 grams levothyroxine 25 mcg tablet 25 mcg PO QAM #90 tabs 09/20/22 01/08/23 Rx tamsulosin 0.4 mg capsule 0.4 mg PO QAM #90 caps 11/28/22 01/08/23 Rx amitriptyline 25 mg tablet 25 mg PO HS 01/08/23 01/08/23 History polyethylene glycol 3350 17 gram 17 gm PO DAILY PRN Constipation 01/08/23 01/08/23 History oral powder packet vitamins A,C,Z-negx-npiuyg 2,148 2 tab PO AMPM 01/08/23 01/08/23 History mcg-113 mg-45 mg-17.4 mg tablet (PreserVision AREDS) Past Med/Surg History Medical History Atrial fibrillation, permanent Benign essential hypertension BPH with obstruction/lower urinary tract symptoms Bronchiectasis Chronic anticoagulation COPD (chronic obstructive pulmonary disease) Depression with anxiety Elevated PSA History of Lyme disease History of pneumonia Hyperlipidemia Hypothyroid Insomnia Neuropathy PAC (premature atrial contraction) Prostate nodule Pulmonary nodules Restless leg syndrome Surgical History H/O hernia repair H/O laminectomy Hx of hand surgery Family History Mother Breast cancer Daughter Breast cancer Denies family history of Ovarian cancer Prostate cancer Myocardial infarction Colorectal cancer Social History Smoking Status: Never smoker Second Hand Exposure: No; Hx Alcohol Use: Yes Alcohol type: beer and hard liquor Hx Substance Use: No Preferred Language: Georgian Communication Ability: Effective Hearing Ability: Normal 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 current occupational status: retired How many Children do You have: 5 Other Information That Helps Us Care for You: No Feels Safe at Home: Yes Safety Concerns: Feels Safe At This Time Childhood Exposure to Second-Hand Smoke: No Diet Comment: Does not follow diet. caffeine: Yes (Coffee x 1 cup per day.) during the past year weight has: remained stable Dental Care, Regularly: Yes Physical Activity Frequency: 1-2 Times per Week Seatbelt Use: always Sunscreen Use: Yes Assistive Devices: Denture - Upper, Denture - Lower, Glasses and Walker Review of Systems Review of Systems: As per HPI. Physical Exam Constitutional: WD/WN, vitals as above Patient not in acute distress. ENMT: Mucous membranes dry, coagulated remnants of blood in the oral cavity. Cardiovascular: Rate/Rhythm: + irregularly irregular Heart Sounds: normal S1 and normal S2 No peripheral edema. Chest (Breasts): Additional Comments: CTA bilaterally, breathing slightly shallow. Gastrointestinal (Abdomen): BS+, non-distended, non-tender, soft, no guarding or rebound. Psychiatric: A+Ox3, euthymic affect Results & Data Results & Data Vital Signs (Past 12 Hours) Vital Signs Temp Pulse Pulse Resp BP BP Pulse Ox 01/08/23 20:48 26 H 95 01/08/23 20:48 182/112 H 01/08/23 20:30 101 H 31 H 96 01/08/23 20:30 190/117 H 01/08/23 20:00 101 H 39 H 94 01/08/23 20:00 171/120 H 01/08/23 19:16 172/105 H 01/08/23 19:16 97 H 28 H 96 01/08/23 19:04 92 H 18 181/120 H 94 01/08/23 18:39 96 01/08/23 18:35 98 H 01/08/23 18:27 36.7 C 107 H 24 178/110 H 96 O2 Del Method 01/08/23 20:48 Room Air 01/08/23 20:48 01/08/23 20:30 Room Air 01/08/23 20:30 01/08/23 20:00 Room Air 01/08/23 20:00 01/08/23 19:16 01/08/23 19:16 01/08/23 19:04 Room Air 01/08/23 18:39 Room Air 01/08/23 18:35 01/08/23 18:27 Room Air Supervising Physician Co-Signing Physician Notes Patient seen and examined, chart reviewed, case discussed with Dr. Rizvi and I agree with the assessment and plan as above. In brief, patient is an 87yo male presenting with UGIB. He is on Apixaban 5mg po BID- last dose 01/08/23 at 0900. Hematemesis and melena ongoing throughout the day. No abdominal pain. Persistent nausea. HD stable. Hgb on arrival 14.2, Hct=41.1. Mild coagulopathy with INR=1.2. Normal platelets. BUN=25 On exam he is ill in appearance Hematemesis in ER and again in hallway. Patient remains HD stable 2PIVs present in LUE Abdomen is soft, NT, mildly distended, no epigastric pain Labs and images reviewed Assessment/Plan - UGIB - hematemesis in 87yo male on Eliquis for atrial fibrillation. Last dose 01/08/23 at 0900. No reversal/PCC Admit to PCU maintain 2PIVs Blood consent obtained - transfuse for ongoing bleed, symptomatic anemia or Hgb <7 Protonix gtt - continue GI consultation appreciated Will Hold Propranolol for now Remainder as above Resident Activity Tracking Resident Involvement: Resident Care Provided Care Provided: Adult Hospital Medicine (9) Hyperlipidemia Hyperlipidemia type: unspecified Qualified Code(s): E78.5 - Hyperlipidemia, unspecified (10) Hypothyroid Hypothyroidism type: unspecified Qualified Code(s): E03.9 - Hypothyroidism, unspecified
[2023-01-08] MEDS ORDERED: ONDANSETRON INJ 2 MG/ML 2 ML VIAL IV STA (22:21)
[2023-01-08] MEDS ORDERED: ONDANSETRON INJ 2 MG/ML 2 ML VIAL ONE (22:22)
[2023-01-08] MEDS: PANTOprazole 40 MG in DEXTROSE 5% 100 ML IV SCH (22:59)
[2023-01-09] MEDS ORDERED: PROMETHAZINE HCL 6.25 MG in SODIUM CHLORIDE 0.9% 50 ML IV PRN (00:06)
[2023-01-09] MEDS ORDERED: ACETAMINOPHEN 325 MG TAB PO PRN ×2 (00:19→21:51)
[2023-01-09] MEDS ORDERED: MELATONIN 3 MG TAB PO PRN (00:19)
[2023-01-09] MEDS ORDERED: BUMETANIDE 1 MG TAB PO PRN (00:19)
[2023-01-09] MEDS ORDERED: PROPRANOLOL HCL 10 MG TAB PO SCH (00:19)
[2023-01-09] MEDS: ONDANSETRON INJ 2 MG/ML 2 ML VIAL IV PRN ×2 (00:28→10:18)
[2023-01-09] MEDS: LACTATED RINGER'S 1,000 ML IV SCH ×3 (00:33→22:57)
[2023-01-09] MEDS ORDERED: LACTATED RINGER'S 1,000 ML IV ONE (01:02)
[2023-01-09] MEDS ORDERED: METOPROLOL TARTRATE 1 MG/ML VIAL IV PRN (01:09)
[2023-01-09] MEDS ORDERED: METOPROLOL TARTRATE 1 MG/ML VIAL IV ONE (01:23)
[2023-01-09 01:34] LABS: Basophils # (auto) 0.01 K/uL (0-0.2); Basophils % (auto) 0.1 %; Hematocrit (blood only) 36.8 % (42.0-52.0); Hemoglobin 12.4 g/dl (14.0-18.0); Immature Granulocytes # (auto) 0.05 K/uL (0.01-0.20); Immature Granulocytes % (auto) 0.4 %; Lymphocytes # (auto) 0.53 K/uL (1.2-3.4); Lymphocytes % (auto) 4.8 %; Mean Corpuscular Hemoglobin 31.2 pg (25.0-34.0); Mean Corpuscular Hgb Conc 33.7 g/dL (32.0-36.0); Mean Corpuscular Volume 92.5 fL (80.0-100.0); Mean Platelet Volume 11.1 fL (9.4-12.4); Monocytes # (auto) 1.06 K/uL (0.11-0.59); Monocytes % (auto) 9.5 %; Neutrophils # (auto) 9.49 K/uL (1.40-6.50); Neutrophils % (auto) 85.2 %; Platelet Count 145 K/uL (130-400); RDW Coefficient of Variation 13.6 % (11.5-14.5); RDW Standard Deviation 46.6 fL (36.4-46.3); Red Blood Count 3.98 M/uL (4.70-6.10); White Blood Count 11.14 K/ul (4.8-10.8)
[2023-01-09] MEDS: PANTOprazole 40 MG in DEXTROSE 5% 100 ML IV SCH ×5 (03:57→22:57)
[2023-01-09] MEDS: LEVOTHYROXINE SODIUM 25 MCG TABLET PO SCH (06:09)
--- NOTE | 2023-01-09 07:00 | Billing Data ---
Date of Service January 08, 2023 Coding Level of Care Code 43792 INT INP/OBS CARE
[2023-01-09 07:12] LABS: Basophils # (auto) 0.01 K/uL (0-0.2); Basophils % (auto) 0.1 %; Hematocrit (blood only) 33.9 % (42.0-52.0); Hemoglobin 11.3 g/dl (14.0-18.0); Immature Granulocytes # (auto) 0.02 K/uL (0.01-0.20); Immature Granulocytes % (auto) 0.2 %; Lymphocytes # (auto) 1.08 K/uL (1.2-3.4); Lymphocytes % (auto) 12.1 %; Mean Corpuscular Hgb Conc 33.3 g/dL (32.0-36.0); Mean Corpuscular Volume 93.1 fL (80.0-100.0); Mean Platelet Volume 10.9 fL (9.4-12.4); Monocytes # (auto) 0.89 K/uL (0.11-0.59); Neutrophils # (auto) 6.93 K/uL (1.40-6.50); Neutrophils % (auto) 77.6 %; Platelet Count 139 K/uL (130-400); RDW Coefficient of Variation 13.7 % (11.5-14.5); RDW Standard Deviation 46.5 fL (36.4-46.3); Red Blood Count 3.64 M/uL (4.70-6.10); White Blood Count 8.93 K/ul (4.8-10.8)
[2023-01-09 07:29] LABS: BUN Creatinine Ratio 24.7 (10-20); Calcium 7.8 mg/dl (8.6-10.3); Creatinine Clr Calc Pharmacy 73.1 ml/min; Est GFR (African American) 88.5 ml/min; Est GFR (Non-African American) 76.3 ml/min; Potassium 3.5 mmol/L (3.5-5.1)
[2023-01-09] MEDS: ATORVASTATIN 10 MG TAB PO SCH (07:51)
[2023-01-09] MEDS: GABAPENTIN 600 MG TAB PO SCH ×2 (07:52→20:10)
[2023-01-09] MEDS: TAMSULOSIN HCL 0.4 MG CAP PO SCH (07:54)
[2023-01-09] MEDS ORDERED: CYANOCOBALAMIN 1000 MCG/ML VIAL IM SCH (09:00)
[2023-01-09] MEDS ORDERED: METOCLOPRAMIDE HCL INJ 5 MG/ML 2 ML VIAL IV STA (09:36)
--- NOTE | 2023-01-09 09:50 | Gastrointestinal Consultation ---
Date of Consultation January 09, 2023 Assessment & Plan (1) Acute GI bleeding: (2) Melena: (3) Hematemesis: Plan Diff dx: Merlyn-Majano tear vs AVM vs Kelvin's erosions vs PUD vs malignancy vs other. -NPO for now. -Reglan 10 mg IV x 1 now. -EGD with Dr. Adams for further evaluation. -Continue PPI ggt at 8mg/hr. -Supportive care. -Further recommendations pending results of testing. Thank you for allowing us to participate in the care of this patient. If you have any questions or concerns, please do not hesitate to contact us. Supervising Physician Co-Signing Physician Notes Agree with TODD Sargent as above Abd: Soft, NT, ND, +BS Continue current therapy and supportive care Received Reglan 10 mg IV x1 Proceed with Emergent EGD now History of Present Illness Reason for Consultation: Hematemesis and melena Requesting Physician: Dr. Rizvi Attending Physician: Hanane Bass MD History of Present Illness Patient is a 87 y.o. in permanent atrial fibrillation on Eliquis daily for chronic atrial fibrillation admitted with weakness as well as hematemesis and melena. He reports he is having associated abdominal discomfort. Last episode of vomiting was last evening. No further nausea. No bowel movement this morning. Admission hemoglobin was noted to be 14.2 and his H&H this morning is 11.3/33.9. Denies any chest pain, palpitations or shortness of breath. He is currently NPO and on a PPI ggt. Denies any outpatient use of NSAIDs. Allergies Allergy/AdvReac Type Severity Reaction Status Date / Time COVID-19 vaccine, mRNA, AdvReac Severe Verified 07/06/22 12:51 [id number], [From [facility] [place] COVID[facility])] Home Medications Medication Instructions Recorded Confirmed Type bumetanide 0.5 mg tablet 0.5 mg PO DAILY PRN swelling #90 05/27/21 01/08/23 Rx tabs apixaban 5 mg tablet (Eliquis) 5 mg PO BID #180 tabs 02/18/22 01/08/23 Rx atorvastatin 10 mg tablet 10 mg PO QAM #90 tabs 05/10/22 01/08/23 Rx propranolol 10 mg tablet 10 mg PO AMPM 06/14/22 01/08/23 History cyanocobalamin (vitamin B-12) 1,000 mcg IM MONTHLY #12 ea 07/28/22 01/08/23 Rx 1,000 mcg/mL injection kit gabapentin 600 mg tablet 600 mg PO BID #180 tabs 09/05/22 01/08/23 Rx triamcinolone acetonide 0.1 % See Rx Instructions .Route 09/05/22 01/08/23 Rx topical cream .COMPLEX PRN Rash #30 grams levothyroxine 25 mcg tablet 25 mcg PO QAM #90 tabs 09/20/22 01/08/23 Rx tamsulosin 0.4 mg capsule 0.4 mg PO QAM #90 caps 11/28/22 01/08/23 Rx amitriptyline 25 mg tablet 25 mg PO HS 01/08/23 01/08/23 History polyethylene glycol 3350 17 gram 17 gm PO DAILY PRN Constipation 01/08/23 01/08/23 History oral powder packet vitamins A,C,P-aejl-uovkzr 2,148 2 tab PO AMPM 01/08/23 01/08/23 History mcg-113 mg-45 mg-17.4 mg tablet (PreserVision AREDS) Patient History Medical History Atrial fibrillation, permanent Benign essential hypertension BPH with obstruction/lower urinary tract symptoms Bronchiectasis Chronic anticoagulation COPD (chronic obstructive pulmonary disease) Depression with anxiety Elevated PSA History of Lyme disease History of pneumonia Hyperlipidemia Hypothyroid Insomnia Neuropathy PAC (premature atrial contraction) Prostate nodule Pulmonary nodules last CT chest in December 2018 noting resolution of pulmonary nodules, no further f/u indicated. 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 current occupational status: retired How many Children do You have: 5 Other Information That Helps Us Care for You: No Feels Safe at Home: Yes Safety Concerns: Feels Safe At This Time Childhood Exposure to Second-Hand Smoke: No Diet Comment: Does not follow diet. caffeine: Yes (Coffee x 1 cup per day.) during the past year weight has: remained stable Dental Care, Regularly: Yes Physical Activity Frequency: 1-2 Times per Week Seatbelt Use: always Sunscreen Use: Yes Assistive Devices: Denture - Upper, Denture - Lower, Glasses and Walker Review of Systems Constitutional: as per Subjective / HPI Respiratory: as per Subjective / HPI Cardiovascular: as per Subjective / HPI Gastrointestinal: as per Subjective / HPI Physical Exam Constitutional: WD/WN, vitals as above Eyes: EOM intact bilaterally Neck: normal visual inspection Respiratory: normal respiratory effort, lungs clear to auscultation Cardiovascular: Rate/Rhythm: + irregularly irregular Heart Sounds: + murmur Gastrointestinal (Abdomen): Inspection/Auscultation: + hyperactive bowel sounds Percussion/Palpation: + abdomen tender and abdomen soft; no guarding and abdomen not rigid Musculoskeletal: Extremities: extremities normal to inspection Skin: + pallor Psychiatric: A+Ox3, euthymic affect Results & Data Vital Signs (Past 12 Hours) Vital Signs Temp Pulse Pulse Resp BP BP Pulse Ox 01/09/23 07:24 36.9 C 87 24 146/89 H 99 01/09/23 03:07 37.7 C H 87 25 H 161/99 H 98 01/09/23 01:24 100 H 163/124 H 01/09/23 00:20 37.1 C 99 H 28 H 152/117 H 96 01/08/23 23:44 01/08/23 23:00 100 H 24 96 01/08/23 23:00 169/112 H 01/08/23 22:00 96 H 22 94 01/08/23 22:00 178/105 H 01/08/23 21:46 106 H 27 H 97 01/08/23 21:46 177/120 H 01/08/23 21:45 103 H 33 H 94 O2 Del Method 01/09/23 07:24 Room Air 01/09/23 03:07 Room Air 01/09/23 01:24 01/09/23 00:20 Room Air 01/08/23 23:44 Room Air 01/08/23 23:00 Room Air 01/08/23 23:00 01/08/23 22:00 Room Air 01/08/23 22:00 01/08/23 21:46 Room Air 01/08/23 21:46 01/08/23 21:45 Room Air Diagnostic Findings Laboratory Results WBC 8.93 K/ul (4.8-10.8) 01/09/23 06:36 RBC 3.64 M/uL (4.70-6.10) L 01/09/23 06:36 Hgb 11.3 g/dl (14.0-18.0) L 01/09/23 06:36 Hct 33.9 % (42.0-52.0) L 01/09/23 06:36 MCV 93.1 fL (80.0-100.0) 01/09/23 06:36 MCH 31.0 pg (25.0-34.0) 01/09/23 06:36 MCHC 33.3 g/dL (32.0-36.0) 01/09/23 06:36 RDW Std Deviation 46.5 fL (36.4-46.3) H 01/09/23 06:36 RDW Coeff of Nadege 13.7 % (11.5-14.5) 01/09/23 06:36 Plt Count 139 K/uL (130-400) 01/09/23 06:36 MPV 10.9 fL (9.4-12.4) 01/09/23 06:36 Immature Gran % (Auto) 0.2 % 01/09/23 06:36 Neut % (Auto) 77.6 % 01/09/23 06:36 Lymph % (Auto) 12.1 % 01/09/23 06:36 [place]oux % (Auto) 10.0 % 01/09/23 06:36 Eos % (Auto) 0.0 % 01/09/23 06:36 Baso % (Auto) 0.1 % 01/09/23 06:36 Neut # (Auto) 6.93 K/uL (1.40-6.50) H 01/09/23 06:36 Lymph # (Auto) 1.08 K/uL (1.2-3.4) L 01/09/23 06:36 [place]oux # (Auto) 0.89 K/uL (0.11-0.59) H 01/09/23 06:36 Eos # (Auto) 0.00 K/uL (0-0.50) 01/09/23 06:36 Baso # (Auto) 0.01 K/uL (0-0.2) 01/09/23 06:36 Immature Gran # (Auto) 0.02 K/uL (0.01-0.20) 01/09/23 06:36 PT 13.0 Seconds (9.0-12.0) H 01/08/23 18:31 INR 1.2 (0.9-1.1) H 01/08/23 18:31 APTT 29.0 Seconds (21.0-31.0) 01/08/23 18:31 PTT Ratio 1.0 01/08/23 18:31 Sodium 138 mmol/L (136-145) 01/09/23 06:36 Potassium 3.5 mmol/L (3.5-5.1) 01/09/23 06:36 Chloride 105 mmol/L (98-107) 01/09/23 06:36 Carbon Dioxide 27 mmol/L (21-32) 01/09/23 06:36 Anion Gap 6 (3-11) 01/09/23 06:36 BUN 22 mg/dl (6-23) 01/09/23 06:36 Creatinine 0.89 mg/dl (0.6-1.4) 01/09/23 06:36 Est Cr Clr Drug Dosing 73.1 ml/min 01/09/23 06:36 Est GFR ( Amer) 88.5 ml/min 01/09/23 06:36 Est GFR (Non-Af Amer) 76.3 ml/min 01/09/23 06:36 BUN/Creatinine Ratio 24.7 (10-20) H 01/09/23 06:36 Glucose 105 mg/dl (70-99(Fasting)) H 01/09/23 06:36 Calcium 7.8 mg/dl (8.6-10.3) L 01/09/23 06:36 Total Bilirubin 1.4 mg/dl (0.2-1.0) H 01/08/23 18:31 AST 22 U/L (13-39) 01/08/23 19:47 ALT 15 U/L (7-52) 01/08/23 18:31 Alkaline Phosphatase 68 U/L (34-104) 01/08/23 18:31 Troponin I High Sens 10.4 pg/ml (0-20) 01/08/23 18:31 Total Protein 6.5 gm/dl (6.0-8.3) 01/08/23 18:31 Albumin 3.8 gm/dl (3.4-5.0) 01/08/23 18:31 Globulin 2.7 gm/dl (2.5-4.0) 01/08/23 18:31 Albumin/Globulin Ratio 1.4 (0.9-2) 01/08/23 18:31 Lipase 9 U/L (11-82) L 01/08/23 18:31 POC Stool Occult Blood Positive (Negative) A 01/08/23 18:39 SARS-CoV-2, RNA, NAAT NEGATIVE (NEGATIVE) 01/08/23 20:47 Blood Type A Negative 01/08/23 18:56 Blood Type Recheck A Negative 01/08/23 19:08 Antibody Screen NEGATIVE 01/08/23 18:56 PG Care Time/CCT Total # of Minutes Spent Total Time Spent with Patient: Total time spent is greater than 50% in coordination of care (as documented) at patient's floor/unit and/or counseling patient: Coding Level of Care Code 76717 INT INP/OBS CARE 3/75MIN Diagnoses Acute GI bleeding K92.2 Melena K92.1 Hematemesis K92.0
[2023-01-09] MEDS ORDERED: PROPOFOL IV EMULSION 10 MG/ML 20 ML VIAL IV ONE (10:15)
[2023-01-09] MEDS ORDERED: LIDOCAINE 2% MPF LOCAL 5 ML VIAL ONE (10:15)
[2023-01-09] MEDS ORDERED: ONDANSETRON INJ 2 MG/ML 2 ML VIAL ONE (10:16)
--- NOTE | 2023-01-09 10:31 | Anesthesiology Consultation ---
Date of Service January 09, 2023 Assessment & Plan (1) Encounter for pre-operative examination: Chart Review Chart Review: Acceptable Risk for Surgery, Patient NOT seen in Pre Admission Testing and entry level sales consultant initiated Consults Requested none History Surgery Operation Date: 01/09/23 18:00 Proposed Procedures p Esophagogastroduodenoscopy Dr Adams - Froylan Escobar Case, DO Height/Weight Height: 6 ft 6 in Weight: 90.1 kg Allergies Allergy/AdvReac Type Severity Reaction Status Date / Time COVID-19 vaccine, mRNA, AdvReac Severe Verified 07/06/22 12:51 [id number], [From [facility] COVID-19 Booster([facility])] Medications Home Medications Medication Instructions Recorded Confirmed Last Taken bumetanide 0.5 mg tablet 0.5 mg PO DAILY PRN swelling #90 05/27/21 01/08/23 Unknown tabs apixaban 5 mg tablet (Eliquis) 5 mg PO BID #180 tabs 02/18/22 01/08/23 Unknown atorvastatin 10 mg tablet 10 mg PO QAM #90 tabs 05/10/22 01/08/23 Unknown propranolol 10 mg tablet 10 mg PO AMPM 06/14/22 01/08/23 Unknown cyanocobalamin (vitamin B-12) 1,000 mcg IM MONTHLY #12 ea 07/28/22 01/08/23 Unknown 1,000 mcg/mL injection kit gabapentin 600 mg tablet 600 mg PO BID #180 tabs 09/05/22 01/08/23 Unknown triamcinolone acetonide 0.1 % See Rx Instructions .Route 09/05/22 01/08/23 Unknown topical cream .COMPLEX PRN Rash #30 grams levothyroxine 25 mcg tablet 25 mcg PO QAM #90 tabs 09/20/22 01/08/23 Unknown tamsulosin 0.4 mg capsule 0.4 mg PO QAM #90 caps 11/28/22 01/08/23 Unknown amitriptyline 25 mg tablet 25 mg PO HS 01/08/23 01/08/23 Unknown polyethylene glycol 3350 17 gram 17 gm PO DAILY PRN Constipation 01/08/23 01/08/23 Unknown oral powder packet vitamins A,C,T-olza-ydwsph 2,148 2 tab PO AMPM 01/08/23 01/08/23 Unknown mcg-113 mg-45 mg-17.4 mg tablet (PreserVision AREDS) Active Medications Generic Name Dose Route Start Last Admin Trade Name Freq PRN Reason Stop Dose Admin Atorvastatin Calcium 10 mg 01/09/23 09:00 01/09/23 07:51 Atorvastatin 10 Mg Tab PO 02/08/23 08:59 Not Given QAM TARI Cyanocobalamin 1,000 mcg 01/09/23 09:00 01/09/23 08:22 Cyanocobalamin 1000 Mcg/Ml Vial IM 02/08/23 08:59 1,000 mcg Q30D@0900 TARI Administration Gabapentin 600 mg 01/09/23 09:00 01/09/23 07:52 Gabapentin 600 Mg Tab PO 02/08/23 08:59 Not Given BID TARI Pantoprazole Sodium 40 mg/ 100 mls @ 20 mls/hr 01/08/23 22:00 01/09/23 09:52 Dextrose IV 02/07/23 21:59 0 mg/hr Q5H TARI 0 mls/hr Infusion 8 MG/HR Lactated Ringer's 1,000 mls @ 125 mls/hr 01/09/23 00:30 01/09/23 09:52 Lr IV 01/09/23 16:29 Infused .Q8H TARI Infusion Levothyroxine Sodium 25 mcg 01/09/23 06:30 01/09/23 06:09 Levothyroxine Sodium 25 Mcg Tablet PO 02/08/23 06:29 Not Given DAILYBB TARI Ondansetron HCl 4 mg 01/08/23 22:22 01/09/23 10:18 Ondansetron Inj 2 Mg/Ml 2 Ml Vial IV 02/07/23 22:21 4 mg Q6H PRN Administration Nausea And Vomiting Tamsulosin HCl 0.4 mg 01/09/23 09:00 01/09/23 07:54 Tamsulosin Hcl 0.4 Mg Cap PO 02/08/23 08:59 Not Given QAM TARI NPO Date Last Intake of Fluids: 01/09/23 Time Last Intake of Fluids: 00:00 Date Last Intake of Solids: 01/09/23 Time Last Intake of Solids: 00:00 Past Medical History Medical History (Updated 01/09/23 @ 10:33 by Ld Navarrete MD) Atrial fibrillation, permanent Benign essential hypertension BPH with obstruction/lower urinary tract symptoms Bronchiectasis Chronic anticoagulation COPD (chronic obstructive pulmonary disease) Depression with anxiety Elevated PSA Encounter for pre-operative examination History of Lyme disease History of pneumonia Hyperlipidemia Hypothyroid Insomnia Neuropathy PAC (premature atrial contraction) Prostate nodule Pulmonary nodules last CT chest in December 2018 noting resolution of pulmonary nodules, no further f/u indicated. Restless leg syndrome Past Family History Family History Mother Breast cancer Daughter Breast cancer Denies family history of Ovarian cancer Prostate cancer Myocardial infarction Colorectal cancer Past Surgical History Surgical History H/O hernia repair H/O laminectomy cervical Hx of hand surgery Social History Smoking Status: Never smoker Hx Alcohol Use: Yes Alcohol type: beer and hard liquor alcohol intake frequency: holidays/special occasions only Hx Substance Use: No Physical Exam Vital Signs Last Vital Signs Temp 37.2 C 01/09/23 10:15 Pulse 86 01/09/23 10:15 Resp 18 01/09/23 10:15 BP 139/79 01/09/23 10:15 Pulse Ox 94 01/09/23 10:15 O2 Del Method Room Air 01/09/23 10:15 Testing Laboratory Results 01/09/23 06:36 01/09/23 06:36 PT 13.0 Seconds (9.0-12.0) H 01/08/23 18:31 INR 1.2 (0.9-1.1) H 01/08/23 18:31 APTT 29.0 Seconds (21.0-31.0) 01/08/23 18:31 Blood Type A Negative 01/08/23 18:56 Antibody Screen NEGATIVE 01/08/23 18:56 Electrocardiogram Date: 01/08/23 Findings: + AFIB @ (98) 08-JAN-2023 18:53:38 [facility]-EDSTAT ROUTINE RETRIEVAL Atrial fibrillation Rightward axis Nonspecific T wave abnormality Abnormal ECG When compared with ECG of 22-DEC-2020 19:37, Nonspecific T wave abnormality, worse in Inferior leads Echocardiogram Date: 04/19/22 EF: 65-69% RWMA: + none Other Findings: + LVH (moderate)
[2023-01-09] MEDS ORDERED: STAT IV STA ×2 (11:37→14:42)
[2023-01-09] MEDS ORDERED: OCTREOTIDE ACETATE 100 MCG in SYRINGE 0 ML IV STA (11:40)
--- NOTE | 2023-01-09 11:43 | GI REPORT ---
Patient Name: Filiberto Simmons Procedure Date: 01/09/2023 10:15 AM Date of : 1935 Admit Type: Inpatient Age: 87 Gender: Male Attending MD: Froylan Adams DO, Procedure: Upper GI endoscopy Providers: Froylan Adams DO Referring MD: Hnaane Bass MD Indications: Acute post hemorrhagic anemia, Hematemesis Medicines: Monitored Anesthesia Care Complications: Hypotension Estimated Blood Loss: Estimated blood loss: none. Procedure: Pre-Anesthesia Assessment: - Prior to the procedure, a History and Physical was performed, and patient medications and allergies were reviewed. The patient's tolerance of previous anesthesia was also reviewed. The risks and benefits of the procedure and the sedation options and risks were discussed with the patient. All questions were answered, and informed consent was obtained. Prior Anticoagulants: The patient has taken Eliquis (apixaban), last dose was 1 day prior to procedure. ASA Grade Assessment: III - A patient with severe systemic disease. After reviewing the risks and benefits, the patient was deemed in satisfactory condition to undergo the procedure. After obtaining informed consent, the endoscope was passed under direct vision. Throughout the procedure, the patient's blood pressure, pulse, and oxygen saturations were monitored continuously. The Endoscope was introduced through the mouth, and advanced to the second part of duodenum. The upper GI endoscopy was accomplished without difficulty. The patient tolerated the procedure. Findings: The examined esophagus was normal. A 10 mm bleeding Merlyn-Majano tear with stigmata of recent bleeding was found. For hemostasis, three hemostatic clips were successfully placed (MR conditional). Clip fine grader: General Assembly. There was no bleeding at the end of the procedure. Area was successfully injected with 3 mL of a 0.1 mg/mL solution of epinephrine for hemostasis. Hematin (altered blood/cokowz-fhqznc-pzjb material) was found in the gastric fundus. Hematin (altered blood/jmeuhy-vsettn-aefn material) was found in the gastric antrum. Hematin (altered blood/raqhtr-urcgvj-tlbc material) was found in the duodenal bulb. Impression: - Normal esophagus. - Merlyn-Majano tear. Clips (MR conditional) were placed. Clip fine grader: General Assembly. Injected. - Hematin (altered blood/iroxaj-ssrgst-cmsa material) and bright red blood in the gastric fundus. - Hematin (altered blood/kwpvwq-rultba-xpqd material) and bright red blood in the gastric antrum. - Blood in the duodenal bulb. - No specimens collected. Recommendation: - [facility]. - NPO. - Perform a CT scan (computed tomography) of abdomen with contrast and pelvis with contrast today. - Administer an IV bolus of 100 micrograms of octreotide followed by an infusion of 50 micrograms per hour. - Give Protonix (pantoprazole): 8 mg/hr IV by continuous infusion. - Difficult to make definitive diagnosis as there was poor visualization due to bleeding, though it appeared to be a Merlyn Majano tear, which responded to epinephrine injection and endoclip placement x3. - Will need repeat endoscopy this week for further evaluation. If patient continues to bleed, recommend transfer for IR embolization. Froylan Adams, DO 01/09/2023 11:42:23 AM This report has been signed electronically. Note Initiated On: 01/09/2023 10:15 AM Number of Addenda: 0 I attest to the content of the Intraoperative Record and orders documented therein, exceptions below {[id number]}
[2023-01-09] MEDS ORDERED: PHENYLEPHRINE 100MCG/ML 5ML SYR ONE (11:47)
--- NOTE | 2023-01-09 12:44 | Electrocardiogram Report ---
Test Reason : Blood Pressure : / mmHG Vent. Rate : 098 BPM Atrial Rate : 394 BPM P-R Int : 000 ms QRS Dur : 086 ms QT Int : 342 ms P-R-T Axes : 000 097 028 degrees QTc Int : 436 ms Atrial fibrillation Rightward axis Nonspecific T wave abnormality Abnormal ECG When compared with ECG of 22-DEC-2020 19:37, Nonspecific T wave abnormality, worse in Inferior leads Confirmed by Fernandez Tai ([id number]) on 01/09/2023 12:44:41 PM Referred By: REFERRED SELF Confirmed By:Fernandez Tai
[2023-01-09] MEDS: OCTREOTIDE ACETATE 500 MCG in DEXTROSE 5% 100 ML IV SCH ×2 (12:53→20:44)
--- NOTE | 2023-01-09 13:21 | Critical Care Progress Note ---
Date of Service January 09, 2023 Assessment & Plan (1) Acute GI bleeding: Plan: Reason Critically Ill:87 y/o M w/ PmHx permanent A. fib on Eliquis, hypothyroid, BPH, Hypertension, COPD, restless leg syndrome, B12 deficiency, neuropathy, HLD, depression/anxiety admitted for Neuro - [facility] ICU: NEGATIVE Neuropathy: -Continue home amitriptyline, gabapentin. Cardiac - A. fib/HTN/HLD: -Continue home propranolol, atorvastatin. -Hold Eliquis. Respiratory - COPD: -Lungs clear, no wheezing. SoB may be related to low hemoglobin and dehydrated state. -Continue to monitor O2 sats. GI - Acute GI bleed/Melena: -Hgb 14.2 on arrival; dropped to 11.3; repeat at -Hemoccult positive. -Hold Eliquis - EGD with 10mm bleeding Merlyn-Majano tear; was clipped - CT abdomen/pelvis with contrast pending -Protonix gtt. (8mg/hr) - Octreotide 50 micrograms per hour - GI consulted, appreciate recommendations - Will need repeat EGD later this week for further evaluation due to poor visualization. If bleeding persists consider transfer for IR embolization Diet: NPO RENAL/LYTES - Creatine within normal limits and at baseline Replace lytes as needed. - BPH: -Continue home tamsulosin. -High in place due to difficultly urinating prior to arrival ENDO - Hypothyroid: -Continue home levothyroxine. Follow ICU hyperglycemic protocols HEME - Anemia - secondary to upper GI bleed; hemoglobin 11.2, repeat B12 deficiency: -continue home B12. ID - No concerns for infection at this point. LINES/IV ACCESS - PIVs intact. DVT PROPHYLAXIS - SCD, holding Eliquis in the setting on acute GI bleed Thank you for allowing us to be part of this patient's care. Please refer to Dr. Arnold's documentation for any further recommendations. (2) Melena: (3) Atrial fibrillation, permanent: (4) Benign essential hypertension: (5) B12 deficiency: (6) BPH with obstruction/lower urinary tract symptoms: (7) COPD (chronic obstructive pulmonary disease): (8) Depression with anxiety: (9) Hyperlipidemia: (10) Hypothyroid: Admission and Anticipated Discharge Date Admission Date: January 08, 2023 Review of Systems Review of Systems: As per above Physical Exam Physical Exam: Constitutional: well-appearing, no acute distress HEENT: NCAT, no conjunctival injection CV: regular rhythm, no murmur appreciated, extremities well-perfused, no LE edema Resp: CTABL, no wheezes/rales/rhonchi appreciated, no increased work of breathing GI: soft, nondistended, nontender, BS normoactive MSK: no gross deformities appreciated Skin: warm, dry, no rash appreciated Neuro: alert, oriented, no focal neurologic deficit appreciated Results & Data Results & Data Vital Signs (Past 12 Hours) Vital Signs Temp Pulse Pulse Pulse Resp BP BP 01/09/23 12:14 108 H 16 136/98 01/09/23 11:58 87 16 129/84 01/09/23 11:44 87 16 120/68 01/09/23 10:15 37.2 C 86 18 139/79 01/09/23 07:24 36.9 C 87 24 146/89 H 01/09/23 03:07 37.7 C H 87 25 H 161/99 H 01/09/23 01:24 100 H 163/124 H Pulse Ox O2 Del Method O2 Flow Rate 01/09/23 12:14 99 Oxymask 8 01/09/23 11:58 93 Oxymask 10 01/09/23 11:44 96 Oxymask 10 01/09/23 10:15 94 Room Air 01/09/23 07:24 99 Room Air 01/09/23 03:07 98 Room Air 01/09/23 01:24 (9) Hyperlipidemia Hyperlipidemia type: unspecified Qualified Code(s): E78.5 - Hyperlipidemia, unspecified (10) Hypothyroid Hypothyroidism type: unspecified Qualified Code(s): E03.9 - Hypothyroidism, unspecified
--- NOTE | 2023-01-09 13:54 | Critical Care Consultation ---
Date of Consultation January 09, 2023 Assessment & Plan (1) Acute GI bleeding: Reason Critically Ill:87 y/o M w/ PmHx permanent A. fib on Eliquis admitted for upper GI bleed secondary to Merlyn Majano tear. Neuro - [facility] ICU: NEGATIVE Neuropathy: -Continue home amitriptyline, gabapentin. Cardiac - A. fib/HTN/HLD: -Continue , atorvastatin. -Hold Eliquis, propranolol Respiratory - COPD: -Lungs clear, no wheezing. Dyspnea may be related to low hemoglobin -Continue to monitor O2 sats. - Increased oxygen requirement 8L oxymask - CXR pending GI - Acute GI bleed/Melena: -Hgb 14.2 on arrival; dropped to 11.3; repeat pending. Will check fibrinogen -Hemoccult positive. -Hold Eliquis - EGD with 10mm bleeding Merlyn-Majano tear; was clipped for bleeding control - CT abdomen/pelvis with contrast pending -Protonix gtt. (8mg/hr) - Octreotide 50 micrograms per hour - 2 grams calcium gluconate - GI consulted, appreciate recommendations - Will need repeat EGD later this week for further evaluation due to poor visualization. If bleeding persists consider transfer for IR embolization Diet: NPO RENAL/LYTES - Creatine within normal limits and at baseline Replace lytes as needed. Fluids: LR @60 ml/hr - BPH: -Continue home tamsulosin. -High in place due to difficultly urinating prior to arrival ENDO - Hypothyroid: -Continue home levothyroxine. Follow ICU hyperglycemic protocols HEME - Acute blood loss anemia - secondary to GI bleed; hemoglobin 11.2, repeat pending B12 deficiency: -continue home B12. ID - No concerns for infection at this point. LINES/IV ACCESS - PIVs intact. DVT PROPHYLAXIS - SCD, holding Eliquis in the setting on acute GI bleed (2) Melena: (3) Atrial fibrillation, permanent: (4) Benign essential hypertension: (5) B12 deficiency: (6) BPH with obstruction/lower urinary tract symptoms: (7) COPD (chronic obstructive pulmonary disease): (8) Depression with anxiety: (9) Hyperlipidemia: (10) Hypothyroid: Supervising Physician Co-Signing Physician Notes Patient seen and examined. Discussed with GI and anesthesia on several occasions. Discussed with family practice resident and agree with assessment plan as noted. GI bleed of unclear etiology although definitely did have evidence of an upper GI bleed. Visualization was poor. We will continue octreotide and Protonix. Discussed with anticoagulation clinic reversal of Eliquis. Unfortunately we do not have the monoclonal antibody reversal agent but PCC's were authorized. We will continue to trend hemoglobin and hematocrit and transfuse as needed. Trend coagulation panel as well. Keep n.p.o. for now. Discussed extensively with GI. Plan for repeat endoscopy if the patient continues to bleed as visualization was poor and hopefully with transit of gastric contents through the visualization on a second look may be improved. He is hemodynamically stable currently. Discussed with family at bedside. If the patient should clinically deteriorate and GI feels that second look is not warranted, transfer to higher level of care for possible interventional radiology evaluation may be appropriate although of note that his CT scan did not demonstrate any evidence of active extravasation. Patient is critically ill at this point time with significant possibility of clinical deterioration and or . A total of 60 minutes in critical care time was spent in evaluation management stabilization of this patient including multiple discussions with GI and bedside clinical nurse. History of Present Illness Attending Physician: Hanane Bass MD History of Present Illness 87 year old male with a past medical history of permanent A. fib on Eliquis, hypothyroid, BPH, Hypertension, COPD, restless leg syndrome, B12 deficiency, n europathy, HLD, depression/anxiety presents with upper GI bleeding. Presented with 2 days of hematosis and melena. Overnight hemoglobin dropped from 14.2 to 11.3. Heme occult positive. EGD with Merlyn Majano tear; clips placed for bleeding control. Since getting to floor this afternoon, has had 2 episodes of hematochezia. One with golf ball sized clot. 3 bowel movements with jarvis blood. Intermittent lower abdominal pain/nausea. Is having some dyspnea. Denies chest pain, lightheadedness, dizziness, palpations. Allergies Allergy/AdvReac Type Severity Reaction Status Date / Time COVID-19 vaccine, mRNA, AdvReac Severe Verified 07/06/22 12:51 [id number], [From Moderna COVID-19 Booster([facility])] Home Medications Medication Instructions Recorded Confirmed Type bumetanide 0.5 mg tablet 0.5 mg PO DAILY PRN swelling #90 05/27/21 01/08/23 Rx tabs apixaban 5 mg tablet (Eliquis) 5 mg PO BID #180 tabs 02/18/22 01/08/23 Rx atorvastatin 10 mg tablet 10 mg PO QAM #90 tabs 05/10/22 01/08/23 Rx propranolol 10 mg tablet 10 mg PO AMPM 06/14/22 01/08/23 History cyanocobalamin (vitamin B-12) 1,000 mcg IM MONTHLY #12 ea 07/28/22 01/08/23 Rx 1,000 mcg/mL injection kit gabapentin 600 mg tablet 600 mg PO BID #180 tabs 09/05/22 01/08/23 Rx triamcinolone acetonide 0.1 % See Rx Instructions .Route 09/05/22 01/08/23 Rx topical cream .COMPLEX PRN Rash #30 grams levothyroxine 25 mcg tablet 25 mcg PO QAM #90 tabs 09/20/22 01/08/23 Rx tamsulosin 0.4 mg capsule 0.4 mg PO QAM #90 caps 11/28/22 01/08/23 Rx amitriptyline 25 mg tablet 25 mg PO HS 01/08/23 01/08/23 History polyethylene glycol 3350 17 gram 17 gm PO DAILY PRN Constipation 01/08/23 01/08/23 History oral powder packet vitamins A,C,B-ctak-ztyxlt 2,148 2 tab PO AMPM 01/08/23 01/08/23 History mcg-113 mg-45 mg-17.4 mg tablet (PreserVision AREDS) Patient History Medical History (Updated 01/09/23 @ 10:33 by Ld Navarrete MD) Atrial fibrillation, permanent Benign essential hypertension BPH with obstruction/lower urinary tract symptoms Bronchiectasis Chronic anticoagulation COPD (chronic obstructive pulmonary disease) Depression with anxiety Elevated PSA Encounter for pre-operative examination History of Lyme disease History of pneumonia Hyperlipidemia Hypothyroid Insomnia Neuropathy PAC (premature atrial contraction) Prostate nodule Pulmonary nodules last CT chest in December 2018 noting resolution of pulmonary nodules, no further f/u indicated. Restless leg syndrome Surgical History H/O hernia repair H/O laminectomy cervical Hx of hand surgery Family History Mother Breast cancer Daughter Breast cancer Denies family history of Ovarian cancer Prostate cancer Myocardial infarction Colorectal cancer Social History Smoking Status: Never smoker Second Hand Exposure: No; Hx Alcohol Use: Yes Alcohol type: beer and hard liquor Hx Substance Use: No Preferred Language: Japanese Communication Ability: Effective Hearing Ability: Normal Bsw Required: No Beliefs That Will Affect Care: None marital status: Current Living Situation: Spouse Current Living Situation Comment: Pt lives at home with his , Celia. current occupational status: retired How many Children do You have: 5 Other Information That Helps Us Care for You: No Feels Safe at Home: Yes Safety Concerns: Feels Safe At This Time Childhood Exposure to Second-Hand Smoke: No Diet Comment: Does not follow diet. caffeine: Yes (Coffee x 1 cup per day.) during the past year weight has: remained stable Dental Care, Regularly: Yes Physical Activity Frequency: 1-2 Times per Week Seatbelt Use: always Sunscreen Use: Yes Assistive Devices: None Review of Systems Review of Systems: As per above Physical Exam Physical Exam: Constitutional: well-appearing, no acute distress HEENT: NCAT, no conjunctival injection CV: irregularly irregular rhythm, no murmur appreciated Resp: CTABL, no wheezes/rales/rhonchi appreciated, no increased work of breathing GI: soft, nondistended, mild lower abdominal tenderness, BS normoactive MSK: no gross deformities appreciated Skin: warm, dry, no rash appreciated Neuro: alert, oriented, no focal neurologic deficit appreciated Results & Data Results & Data Vital Signs (Past 12 Hours) Vital Signs Temp Pulse Pulse Resp BP Pulse Ox O2 Del Method 01/09/23 12:14 108 H 16 136/98 99 Oxymask 01/09/23 11:58 87 16 129/84 93 Oxymask 01/09/23 11:44 87 16 120/68 96 Oxymask 01/09/23 10:15 37.2 C 86 18 139/79 94 Room Air 01/09/23 07:24 36.9 C 87 24 146/89 H 99 Room Air 01/09/23 03:07 37.7 C H 87 25 H 161/99 H 98 Room Air O2 Flow Rate 01/09/23 12:14 8 04/24/23 11:58 10 01/09/23 11:44 10 01/09/23 10:15 01/09/23 07:24 01/09/23 03:07 (9) Hyperlipidemia Hyperlipidemia type: unspecified Qualified Code(s): E78.5 - Hyperlipidemia, unspecified (10) Hypothyroid Hypothyroidism type: unspecified Qualified Code(s): E03.9 - Hypothyroidism, unspecified
--- NOTE | 2023-01-09 14:07 | Anesthesiology Progress Note ---
Date of Service January 09, 2023 Anesthesia Post Procedure Vital Signs Vital Signs: Temp Pulse Pulse Pulse Resp BP BP 01/09/23 12:14 108 H 16 136/98 01/09/23 11:58 87 16 129/84 01/09/23 11:44 87 16 120/68 01/09/23 10:15 37.2 C 86 18 139/79 01/09/23 07:24 36.9 C 87 24 146/89 H 01/09/23 03:07 37.7 C H 87 25 H 161/99 H 01/09/23 01:24 100 H 163/124 H 01/09/23 00:20 37.1 C 99 H 28 H 152/117 H 01/08/23 23:44 01/08/23 23:00 100 H 24 01/08/23 23:00 169/112 H 01/08/23 22:00 96 H 22 01/08/23 22:00 178/105 H 01/08/23 21:46 106 H 27 H 01/08/23 21:46 177/120 H 01/08/23 21:45 103 H 33 H 01/08/23 21:31 133/113 H 01/08/23 21:02 147/121 H 01/08/23 20:48 26 H 01/08/23 20:48 182/112 H 01/08/23 20:30 101 H 31 H 01/08/23 20:30 190/117 H 01/08/23 20:00 101 H 39 H 01/08/23 20:00 171/120 H 01/08/23 19:16 172/105 H 01/08/23 19:16 97 H 28 H 01/08/23 19:04 92 H 18 181/120 H 01/08/23 18:39 01/08/23 18:35 98 H 01/08/23 18:27 36.7 C 107 H 24 178/110 H Pulse Ox O2 Del Method O2 Flow Rate 01/09/23 12:14 99 Oxymask 8 01/09/23 11:58 93 Oxymask 10 01/09/23 11:44 96 Oxymask 10 01/09/23 10:15 94 Room Air 01/09/23 07:24 99 Room Air 01/09/23 03:07 98 Room Air 01/09/23 01:24 01/09/23 00:20 96 Room Air 01/08/23 23:44 Room Air 01/08/23 23:00 96 Room Air 01/08/23 23:00 01/08/23 22:00 94 Room Air 01/08/23 22:00 01/08/23 21:46 97 Room Air 01/08/23 21:46 01/08/23 21:45 94 Room Air 01/08/23 21:31 01/08/23 21:02 01/08/23 20:48 95 Room Air 01/08/23 20:48 01/08/23 20:30 96 Room Air 01/08/23 20:30 01/08/23 20:00 94 Room Air 01/08/23 20:00 01/08/23 19:16 01/08/23 19:16 96 01/08/23 19:04 94 Room Air 01/08/23 18:39 96 Room Air 01/08/23 18:35 01/08/23 18:27 96 Room Air Transfer of Care Handoff Completed per policy Notes Mental Status: alert / awake / arousable and participated in evaluation Patient Amnestic to Procedure: Yes Nausea / Vomiting: adequately controlled Pain: adequately controlled Airway Patency, RR, SpO2: stable & adequate BP & HR: stable & adequate Hydration State: stable & adequate Anesthetic Complications: no major complications apparent
--- NOTE | 2023-01-09 14:10 | Communication Note ---
Date of Service: January 09, 2023 Post-op patient was sent to ICU as he was bleeding from mouth. Prior to discharge his vital signs were stable and he was communicating clearly. I gave report to ICU physician over phone.
[2023-01-09] MEDS ORDERED: OPTIRAY 350 100ml IV ONE (14:23)
[2023-01-09] MEDS ORDERED: CALCIUM GLUCONATE 10% 2,000 MG in DEXTROSE 5% 50 ML IV ONE (14:45)
--- NOTE | 2023-01-09 14:45 | CT Scan Report ---
CT OF THE ABDOMEN AND PELVIS WITH CONTRAST CLINICAL HISTORY: GI bleed. COMPARISON STUDY: CT of the abdomen and pelvis March 28, 2019. TECHNIQUE: Following IV administration of 94 mL of Optiray, axial images of the abdomen and pelvis we re obtained from the lung bases to the proximal femurs. Images were reviewed in the axial, sagittal, and coronal planes. IV contrast was administered without complication. Automated exposure control wa s utilized for the study. A dose lowering technique was utilized adhering to the principles of ALARA . CT DOSE: 577.55 mGy.cm FINDINGS: Mild airspace opacities within the right lower lobe and right middle lobe are noted. There is cardiomegaly. No pneumatosis, free air or portal venous gas is present. This exam is compromised b y motion artifact. Endoscopic clips within the distal esophagus and proximal stomach are noted. There is no hepatic lesions. No biliary ductal dilatation is present. Spleen, adrenal glands and pancreas are unremarkable. There is no biliary or pancreatic ductal dilatation patient. Water attenuation bila teral renal lesions favor cysts. There is no hydronephrosis. Colonic diverticulosis is noted. No evid ence for acute diverticulitis. There is a 3 cm fat-containing focus with minimal adjacent stranding a nterior to the distal descending colon. No associated colonic wall thickening is noted. This may refl ect epiploic appendages. This may be subacute to chronic. No definite bowel wall thickening is noted. There is apparent wall thickening of several small bowel loops. This could be due to underdistention . There is prominence of the mesenteric vessels of several small bowel loops. The prostate is enlarge d. High balloon within the bladder is present. There is no lymphadenopathy. There are no acute fract ures. IMPRESSION: 1. Colonic diverticulosis. No evidence for acute diverticulitis. No bowel obstruction. 2. Possible wall thickening of several small bowel loops which could be due to underdistention. Howev er, given prominent mesenteric vessels, a nonspecific enteritis cannot be excluded. 3. Exam compromised by motion artifact. 4. Enlarged prostate. High balloon within the bladder. 5. Mild alveolar opacities within the right lower and right middle lobe suggestive of an infectious p rocess. ACT 112: Negative or not required by law. Electronically signed by: Inocencio Green M.D. 01/09/2023 2:44 PM
--- NOTE | 2023-01-09 15:17 | XRay Report ---
XR chest 1V portable CLINICAL HISTORY: New oxygen requirement COMPARISON STUDY: Chest CT December 28, 2018. Chest radiograph June 14, 2022. FINDINGS: There is no pneumothorax or pleural effusion. No consolidation is identified. Linear left b asilar opacity favors atelectasis. Subtle interstitial thickening is greater within the right lung. C ardiomediastinal silhouette is stable. IMPRESSION: Subtle right lung interstitial thickening which likely corresponds to the alveolar opacit ies on recent abdominal CT. The findings suggest an infectious process. ACT 112: Negative or not required by law. Electronically signed by: Inocencio Green M.D. 01/09/2023 3:16 PM
[2023-01-09 15:27] LABS: Basophils # (auto) 0.01 K/uL (0-0.2); Basophils % (auto) 0.2 %; Hematocrit (blood only) 27.9 % (42.0-52.0); Hemoglobin 9.3 g/dl (14.0-18.0); Immature Granulocytes # (auto) 0.02 K/uL (0.01-0.20); Immature Granulocytes % (auto) 0.4 %; Lymphocytes # (auto) 1.06 K/uL (1.2-3.4); Lymphocytes % (auto) 18.7 %; Mean Corpuscular Hemoglobin 31.2 pg (25.0-34.0); Mean Corpuscular Hgb Conc 33.3 g/dL (32.0-36.0); Mean Corpuscular Volume 93.6 fL (80.0-100.0); Mean Platelet Volume 11.1 fL (9.4-12.4); Monocytes # (auto) 0.38 K/uL (0.11-0.59); Monocytes % (auto) 6.7 %; Neutrophils # (auto) 4.21 K/uL (1.40-6.50); Platelet Count 113 K/uL (130-400); RDW Standard Deviation 47.9 fL (36.4-46.3); Red Blood Count 2.98 M/uL (4.70-6.10); White Blood Count 5.68 K/ul (4.8-10.8)
[2023-01-09 15:52] LABS: Fibrinogen 257 mg/dl (184-400)
[2023-01-09] MEDS ORDERED: SODIUM CHLORIDE 0.9% 250 ML IV PRN (15:55)
[2023-01-09] MEDS ORDERED: KCENTRA (500unit vial) 2000 units IVP IV ONE (16:15)
--- NOTE | 2023-01-09 17:13 | Billing Data ---
Date of Service January 09, 2023 Coding Level of Care Code 73249 CRITICAL CARE
--- NOTE | 2023-01-09 19:33 | Hospitalist Progress Note ---
Date of Service January 09, 2023 Assessment & Plan (1) Acute GI bleeding: Plan: 87 y/o M w/ PmHx permanent A. fib on Eliquis, hypothyroid, BPH, Hypertension, COPD, restless leg syndrome, B12 deficiency, neuropathy, HLD, admitted for acute GI bleed. Here with acute blood loss anemia-hemoglobin 14.2 on admission and now down to 9.3 Found to have large amounts of fresh blood in the stomach and duodenum on emergent EGD on 01/09 Transferred to ICU after EGD for ongoing hematemesis. Found to have Merlyn- Majano tear in stomach which was clipped and injected with epinephrine Was given PCC on 01/09 to reverse the effect of his apixaban CT abdomen/pelvis performed on 01/09 shows possible small bowel enteritis versus underdistention Transfused 1 unit PRBCs so far on 01/09 Was given 2 g of IV calcium gluconate Serial CBCs Appreciate GI consultation Continue Protonix drip, octreotide drip Plan to repeat EGD in 1-2 days as per GI to look for exact source of bleeding Continue n.p.o. status, continue IV fluids Continue holding apixaban (2) Atrial fibrillation, permanent: Plan: Rate controlled Holding home Eliquis for GI bleed Holding home propranolol in case of hypotension from blood loss Monitor on telemetry (3) Benign essential hypertension: Plan: Blood pressures are stable Holding home propranolol and bumetanide (4) COPD (chronic obstructive pulmonary disease): Plan: Is requiring oxygen at this time but no wheezing on examination Could be related to aspiration given chest x-ray findings of developing infiltrate on the right side Monitor for fever or worsening hypoxia Continue supplemental O2 as needed keep pulse ox greater than 92% Not on maintenance inhalers at home (5) BPH with obstruction/lower urinary tract symptoms: Plan: -Continue home tamsulosin. -Difficulty voiding on and before arrival. -Inserted palumbo for voiding troubles. (6) Hyperlipidemia: Plan: Continue home atorvastatin (7) Hypothyroid: Plan: TSH normal in 05/2022 Continue home levothyroxine (8) Neuropathy: Plan: -Continue home amitriptyline, gabapentin. (9) B12 deficiency: Plan: Receives once monthly B12 injections Plan DVT prophylaxis-SCDs Disposition-continued stay in the ICU Admission and Anticipated Discharge Date Admission Date: January 08, 2023 Subjective Patient went for EGD this morning and had a large amount of fresh blood in the stomach and duodenum. In the recovery room, he was noted to vomit large clots of blood and was transferred to the ICU. In the ICU, he did have multiple episodes of melena in the afternoon. He was transfused 1 unit of PRBCs. When I saw him in the evening, he was tachypneic at rest and requiring supplemental oxygen. He denied further nausea, no abdominal pain. Denied chest pain. Did feel little short of breath. Blood pressures remaining stable. Review of Systems Review of Systems: All systems reviewed & are unremarkable except as noted in HPI & below Physical Exam Constitutional: WD/WN, vitals as above Neck: trachea midline, no thyromegaly Respiratory: + tachypneic Auscultation: lungs clear to auscultation bilaterally Cardiovascular: Rate/Rhythm: regular rate and + irregularly irregular Heart Sounds: no murmur Extremities: no edema Chest (Breasts): Chest: normal inspection of chest Gastrointestinal (Abdomen): normal bowel sounds, soft, nontender, no hepa tosplenomegaly Musculoskeletal: Extremities: extremities normal to inspection; no cyanosis and no clubbing Skin: no rashes, warm and dry Neurologic: moves all extremities and awake; no focal motor deficits Psychiatric: A+Ox3, euthymic affect Lymphatic: no lymphedema Results & Data Results & Data Vital Signs (Past 12 Hours) Vital Signs Temp Pulse Pulse Pulse Resp BP BP 01/09/23 18:30 37.1 C 119 H 30 H 174/126 H 01/09/23 17:30 36.9 C 100 H 29 H 161/93 H 01/09/23 17:50 36.9 C 100 H 27 H 163/88 H 01/09/23 17:15 36.6 C 98 H 27 H 161/99 H 01/09/23 17:00 37.1 C 98 H 24 165/101 H 01/09/23 16:45 87 31 H 01/09/23 16:45 98 H 32 H 169/101 H 01/09/23 16:30 98 H 32 H 01/09/23 16:28 112 H 25 H 164/96 H 01/09/23 16:00 112 H 21 175/101 H 01/09/23 15:30 106 H 35 H 187/122 H 01/09/23 15:15 106 H 31 H 201/106 H 01/09/23 15:00 108 H 36 H 209/135 H 01/09/23 14:45 125 H 33 H 01/09/23 14:45 130 H 36 H 187/128 H 01/09/23 14:00 99 H 31 H 177/107 H 01/09/23 13:30 92 H 32 H 177/105 H 01/09/23 13:00 89 32 H 145/82 H 01/09/23 12:55 92 H 31 H 143/88 H 01/09/23 12:38 93 H 28 H 139/87 01/09/23 12:33 145/100 H 01/09/23 12:33 85 33 H 01/09/23 15:00 37.1 C 01/09/23 12:10 37.5 C 95 H 28 H 148/100 H 01/09/23 15:45 37.1 C 94 H 30 H 169/101 H 01/09/23 16:29 37.1 C 101 H 31 H 164/96 H 01/09/23 12:10 91 H 01/09/23 12:10 01/09/23 12:14 108 H 16 136/98 01/09/23 11:58 87 16 129/84 01/09/23 11:44 87 16 120/68 01/09/23 10:15 37.2 C 86 18 139/79 Pulse Ox O2 Del Method O2 Flow Rate 01/09/23 18:30 100 4 01/09/23 17:30 98 01/09/23 17:50 98 4 01/09/23 17:15 96 4 01/09/23 17:00 96 4 01/09/23 16:45 96 01/09/23 16:45 96 Nasal Cannula 4 01/09/23 16:30 96 Nasal Cannula 4 01/09/23 16:28 95 Nasal Cannula 4 01/09/23 16:00 98 Nasal Cannula 4 01/09/23 15:30 95 Nasal Cannula 4 01/09/23 15:15 94 Nasal Cannula 4 01/09/23 15:00 93 Nasal Cannula 4 01/09/23 14:45 01/09/23 14:45 93 Nasal Cannula 4 01/09/23 14:00 92 Nasal Cannula 4 01/09/23 13:30 99 Nasal Cannula 4 01/09/23 13:00 98 Nasal Cannula 4 01/09/23 12:55 98 Nasal Cannula 4 01/09/23 12:38 99 Nasal Cannula 4 01/09/23 12:33 01/09/23 12:33 99 Nasal Cannula 4 01/09/23 15:00 01/09/23 12:10 99 Nasal Cannula 4 01/09/23 15:45 95 4 01/09/23 16:29 94 4 01/09/23 12:10 01/09/23 12:10 Oxymask 4 01/09/23 12:14 99 Oxymask 8 01/09/23 11:58 93 Oxymask 10 01/09/23 11:44 96 Oxymask 10 01/09/23 10:15 94 Room Air Laboratory Results Serial CBCs reviewed, BMP reviewed PG Care Time/CCT Total # of Minutes Spent Total Time Spent with Patient: Total time spent is greater than 50% in coordination of care (as documented) at patient's floor/unit and/or counseling patient: Coding Level of Care Code 84022 SUB INP/OBS CARE 3/50MIN Diagnoses Acute GI bleeding K92.2 Atrial fibrillation, permanent I48.2 Benign essential hypertension I10 COPD (chronic obstructive pulmonary disease) J44.9 BPH with obstruction/lower urinary tract symptoms N40.1; N13.8 Hyperlipidemia E78.5 Hyperlipidemia type: unspecified Hypothyroid E03.9 Hypothyroidism type: unspecified Neuropathy G62.9 B12 deficiency E53.8 (6) Hyperlipidemia Hyperlipidemia type: unspecified Qualified Code(s): E78.5 - Hyperlipidemia, unspecified (7) Hypothyroid Hypothyroidism type: unspecified Qualified Code(s): E03.9 - Hypothyroidism, unspecified
[2023-01-09] MEDS: ICU Protocol for HYPERglycemia SCH (20:10)
[2023-01-09] MEDS: AMITRIPTYLINE HCL 25 MG TAB PO SCH (20:10)
--- NOTE | 2023-01-09 20:21 | Communication Note ---
Date of Service: January 09, [address] Arnold. Discussed case with family including and daughter at bedside. At present, he is still feeling poorly. His H/H has dropped to 9.3/27.9. I did tell the family, that this is not surprising, as he had a significant amount of blood in his stomach and duodenum today during his EGD. I explained that visualization was poor, however, I was able to identify area with active bleeding in the proximal stomach, and was successful in placing 3 endoclips and injecting the area with epinephrine. He remains on a Protonix gtt, as well as an octreotide gtt, which is beneficial in all upper GI bleeding, and is not limited to its effectiveness in variceal bleeding. I reviewed the results of the CT scan of the abd/pelvis with the family, and also reviewed the fact that his Eliquis is on hold. At this time, I believe the best course of action is to allow the medications, endoscopic therapy and discontinuation of his anticoag ulation to work in concert to stop his bleeding. I am mason apprentice and available if he would develop hemodynamic instability or significant overt bleeding. I would not be surprised if he continues to have some further dark stools and a further decline in his H/H. The tentative plan is to repeat the EGD in 1-2 days in hopes that we can get a better idea of what was the source of bleeding. Please do not hesitate to contact me with any questions.
[2023-01-09 21:36] LABS: Basophils # (auto) 0.01 K/uL (0-0.2); Basophils % (auto) 0.1 %; Hematocrit (blood only) 30.2 % (42.0-52.0); Hemoglobin 10.4 g/dl (14.0-18.0); Immature Granulocytes # (auto) 0.03 K/uL (0.01-0.20); Immature Granulocytes % (auto) 0.3 %; Lymphocytes # (auto) 0.62 K/uL (1.2-3.4); Lymphocytes % (auto) 5.6 %; Mean Corpuscular Hemoglobin 31.1 pg (25.0-34.0); Mean Corpuscular Hgb Conc 34.4 g/dL (32.0-36.0); Mean Corpuscular Volume 90.4 fL (80.0-100.0); Mean Platelet Volume 10.9 fL (9.4-12.4); Neutrophils # (auto) 9.45 K/uL (1.40-6.50); Platelet Count 113 K/uL (130-400); RDW Coefficient of Variation 14.2 % (11.5-14.5); RDW Standard Deviation 46.6 fL (36.4-46.3); Red Blood Count 3.34 M/uL (4.70-6.10); White Blood Count 11.11 K/ul (4.8-10.8)
[2023-01-09] MEDS ORDERED: PIPERACILLIN/TAZOBACTAM 4.5 GM in DEXTROSE 5% 100 ML IV ONE (22:00)
[2023-01-10] MEDS: PANTOprazole 40 MG in DEXTROSE 5% 100 ML IV SCH ×5 (03:42→23:47)
[2023-01-10] MEDS ORDERED: PIPERACILLIN/TAZOBACTAM 4.5 GM in DEXTROSE 5% 100 ML IV SCH (04:00)
[2023-01-10] MEDS: LEVOTHYROXINE SODIUM 25 MCG TABLET PO SCH (04:06)
[2023-01-10 06:22] LABS: Basophils # (auto) 0.01 K/uL (0-0.2); Basophils % (auto) 0.1 %; Hematocrit (blood only) 30.5 % (42.0-52.0); Hemoglobin 10.5 g/dl (14.0-18.0); Immature Granulocytes # (auto) 0.03 K/uL (0.01-0.20); Immature Granulocytes % (auto) 0.3 %; Lymphocytes # (auto) 1.36 K/uL (1.2-3.4); Lymphocytes % (auto) 14.2 %; Mean Corpuscular Hemoglobin 31.3 pg (25.0-34.0); Mean Corpuscular Hgb Conc 34.4 g/dL (32.0-36.0); Mean Platelet Volume 11.2 fL (9.4-12.4); Monocytes # (auto) 0.88 K/uL (0.11-0.59); Monocytes % (auto) 9.2 %; Neutrophils # (auto) 7.32 K/uL (1.40-6.50); Neutrophils % (auto) 76.2 %; Platelet Count 112 K/uL (130-400); RDW Coefficient of Variation 14.1 % (11.5-14.5); RDW Standard Deviation 47.2 fL (36.4-46.3); Red Blood Count 3.35 M/uL (4.70-6.10)
[2023-01-10] MEDS: OCTREOTIDE ACETATE 500 MCG in DEXTROSE 5% 100 ML IV SCH ×2 (06:23→16:32)
[2023-01-10 06:38] LABS: BUN Creatinine Ratio 17.3 (10-20); Calcium 7.8 mg/dl (8.6-10.3); Creatinine Clr Calc Pharmacy 63.5 ml/min; Est GFR (Non-African American) 63.8 ml/min; Magnesium 1.6 mg/dl (1.7-2.4); Phosphorus 2.7 mg/dl (2.5-4.9); Potassium 3.3 mmol/L (3.5-5.1)
--- NOTE | 2023-01-10 07:29 | XRay Report ---
XR chest 1V portable CLINICAL HISTORY: hypoxia TECHNIQUE: Single frontal radiograph of the chest was obtained. Comparison: Comparison is made to chest radiograph 01/09/2023 FINDINGS: No lines and tubes are seen. Calcified aortic knob is seen. The lungs are clear. No evidence of pleur al effusion or pneumothorax. IMPRESSION: Interval improvement of previously noted interstitial opacities. ACT 112: Negative or not required by law. Electronically signed by: Kurtis Coronel M.D. 01/10/2023 7:28 AM
--- NOTE | 2023-01-10 07:39 | Critical Care Progress Note ---
Date of Service January 10, 2023 Assessment & Plan (1) Acute GI bleeding: Plan: Reason Critically Ill:87 y/o M w/ PmHx permanent A. fib on Eliquis admitted for upper GI bleed gera secondary to Merlyn Majano tear, although poor visualization with EGD. Neuro - [facility] ICU: NEGATIVE Neuropathy: -Continue home amitriptyline, gabapentin. Cardiac - A. fib/HTN/HLD: -Continue, atorvastatin. -Hold Eliquis, propranolol Respiratory - COPD: -Lungs clear, no wheezing -Continue to monitor O2 sats. - Initially had an increased oxygen requirement, now on room air - CXR without evidence of pleural effusion/pneumothorax, improvement interstitial opacities - started on Zosyn, plan to deescalate to Unasyn - Sputum culture pending GI - Acute GI bleed/Melena: -Hgb 14.2 on arrival; dropped to 9.3-> up to 10.5 this morning after 1 unit pRBC on 01/09 - Fibrinogen= 402 -Hemoccult positive. -Hold Eliquis, s/p PCC 01/09 - EGD 01/09 with 10mm bleeding Merlyn-Majano tear; was clipped for bleeding control. Poor visualization - CT abdomen/pelvis without obvious source of bleeding -Protonix gtt., Octreotide gtt - GI consulted, appreciate recommendations - Plan for repeat EGD later this week for further evaluation due to poor visualization, if he continues to bleed. If bleeding persists consider transfer for IR embolization Diet: NPO RENAL/LYTES - Creatine within normal limits and at baseline Replace lytes as needed. Fluids: LR @60 ml/hr - BPH: -Continue home tamsulosin. -High in place due to difficultly urinating prior to arrival ENDO - Hypothyroid: -Continue home levothyroxine. Follow ICU hyperglycemic protocols HEME - Acute blood loss anemia - secondary to GI bleed; hemoglobin 10.5 s/p 1 unit pRBC 01/09 - Continue to trend B12 deficiency: -continue home B12. ID - Pneumonia- CAP vs aspiration - CXR with questionable opacities. - Started on Zosyn, deescalate to Unasyn - Sputum and blood culture pending - MRSA nares negative LINES/IV ACCESS - PIVs intact. DVT PROPHYLAXIS - SCD, holding Eliquis in the setting on acute GI bleed (2) Melena: (3) Atrial fibrillation, permanent: (4) Benign essential hypertension: (5) B12 deficiency: (6) BPH with obstruction/lower urinary tract symptoms: (7) COPD (chronic obstructive pulmonary disease): (8) Depression with anxiety: (9) Hyperlipidemia: (10) Hypothyroid: Admission and Anticipated Discharge Date Admission Date: January 08, 2023 Supervising Physician Co-Signing Physician Notes Patient seen and examined. EMR reviewed. Discussed on multidisciplinary rounds and with bedside critical care nurse as well as with family at bedside. The patient is improved. He has not had additional hematemesis or melena since yesterday afternoon. Heart rate and blood pressure stable. Oxygenation is improved. GI plans on performing repeat endoscopy sometime during this hospitalization. Will defer diet to them. Patient's x-ray was reviewed. I do not see clear evidence of pneumonia. He is certainly at risk for an aspiration event given the hematemesis that he was experiencing yesterday however this may not be an infection. In the absence of leukocytosis persistent fever or other constitutional symptoms, okay to de- escalate antibiotics and follow clinically. Would complete 5 days of Unasyn. Okay to transfer to the floor. Critical care will sign off. Feel free to contact us if we can be of additional assistance Subjective Doing better this morning. Last episode of emesis/BM was yesterday. Mild lower abdominal pain, improving. States that he is hungry. Cough productive of pink sputum. Denies nausea, chest pain, dyspnea, palpitations, lightheadedness, dizziness. Review of Systems 2 Review of Systems: As per above Physical Exam Physical Exam: Constitutional: well-appearing, no acute distress HEENT: NCAT, no conjunctival injection CV: irregularly irregular rhythm, no murmur appreciated Resp: CTABL, no wheezes/rales/rhonchi appreciated, no increased work of breathing GI: soft, nondistended, mild lower abdominal tenderness, BS normoactive MSK: no gross deformities appreciated Skin: warm, dry, no rash appreciated Neuro: alert, oriented, no focal neurologic deficit appreciated Results & Data Results & Data Vital Signs (Past 12 Hours) Vital Signs Temp Pulse Resp BP Pulse Ox O2 Del Method O2 Flow Rate 01/10/23 01:30 91 H 24 100 01/10/23 01:00 104 H 24 93 01/10/23 01:00 170/102 H 01/10/23 00:30 96 H 19 99 01/10/23 00:30 145/95 H 01/10/23 00:00 105 H 21 94 01/10/23 00:00 152/92 H 01/09/23 23:30 96 H 30 H 94 01/09/23 23:30 159/81 H 01/09/23 23:00 109 H 29 H 100 01/09/23 23:00 167/86 H 01/09/23 22:30 114 H 33 H 99 01/09/23 22:30 156/80 H 01/09/23 22:00 101 H 26 H 99 01/09/23 22:00 153/94 H 01/09/23 21:30 105 H 30 H 100 01/09/23 21:30 140/105 H 01/09/23 21:02 153/89 H 01/09/23 21:02 101 H 34 H 97 01/09/23 21:00 103 H 24 98 01/09/23 20:30 100 H 26 H 99 01/09/23 20:30 155/77 H 01/09/23 23:05 37.5 C 01/09/23 20:25 Nasal Cannula 4 01/09/23 20:23 38.1 C H 01/09/23 20:00 106 H 29 H 98 01/09/23 20:00 151/80 H 01/09/23 19:30 120 H 33 H 99 01/09/23 19:30 137/87 Critical Care Results & Data Vital Signs (Past 12 Hours) Vital Signs Temp Pulse Resp BP Pulse Ox O2 Del Method 01/10/23 09:30 75 20 98 Room Air 01/10/23 09:30 140/79 01/10/23 09:00 80 26 H 94 01/10/23 09:00 114/66 01/10/23 08:30 86 26 H 93 01/10/23 08:30 123/78 01/10/23 08:00 77 23 95 01/10/23 08:00 119/75 01/10/23 08:00 Room Air 01/10/23 08:28 37 C 01/10/23 08:13 86 01/10/23 07:30 127/84 01/10/23 07:30 87 16 96 Room Air 04/25/23 07:00 81 20 94 01/10/23 07:00 136/79 01/10/23 01:30 91 H 24 100 01/10/23 01:00 104 H 24 93 01/10/23 01:00 170/102 H 01/10/23 00:30 96 H 19 99 01/10/23 00:30 145/95 H Lab & Micro Results (Past 24 Hours) RBC 3.35 M/uL (4.70-6.10) L 01/10/23 WBC 9.60 K/ul (4.8-10.8) 01/10/23 Hgb 10.5 g/dl (14.0-18.0) L 01/10/23 Hct 30.5 % (42.0-52.0) L 01/10/23 MCV 91.0 fL (80.0-100.0) 01/10/23 MCH 31.3 pg (25.0-34.0) 01/10/23 MCHC 34.4 g/dL (32.0-36.0) 01/10/23 RDW Standard Deviation 47.2 fL (36.4-46.3) H 01/10/23 RDW Coefficient of Variation 14.1 % (11.5-14.5) 01/10/23 Plt Count 112 K/uL (130-400) L 01/10/23 MPV 11.2 fL (9.4-12.4) 01/10/23 Neutrophils (%) (Auto) 76.2 % 01/10/23 Lymphocytes (%) (Auto) 14.2 % 01/10/23 Monocytes # (Auto) 0.88 K/uL (0.11-0.59) H 01/10/23 Eosinophils # (Auto) 0.00 K/uL (0-0.50) 01/10/23 Immature Granulocyte % (Auto) 0.3 % 01/10/23 Neutrophils # (Auto) 7.32 K/uL (1.40-6.50) H 01/10/23 Lymphocytes # (Auto) 1.36 K/uL (1.2-3.4) 01/10/23 Monocytes # (Auto) 0.88 K/uL (0.11-0.59) H 01/10/23 Eosinophils # (Auto) 0.00 K/uL (0-0.50) 01/10/23 Basophils # (Auto) 0.01 K/uL (0-0.2) 01/10/23 Immature Granulocyte # (Auto) 0.03 K/uL (0.01-0.20) 3 Na 136 mmol/L (136-145) 01/10/23 K 3.3 mmol/L (3.5-5.1) L 01/10/23 Cl 101 mmol/L (98-107) 01/10/23 CO2 28 mmol/L (21-32) 01/10/23 Anion Gap 7 (3-11) 01/10/23 BUN 18 mg/dl (6-23) 01/10/23 Creatinine 1.04 mg/dl (0.6-1.4) 01/10/23 Estimated GFR ( Amer) 74.0 ml/min 01/10/23 Estimated GFR (Non-Af Amer) 63.8 ml/min 01/10/23 BUN/Creatinine Ratio 17.3 (10-20) 01/10/23 Glu 149 mg/dl (70-99(Fasting)) H 01/10/23 Ca 7.8 mg/dl (8.6-10.3) L 01/10/23 Phosphorus Level 2.7 mg/dl (2.5-4.9) 01/10/23 Mg 1.6 mg/dl (1.7-2.4) L 01/10/23 05:54 Calcium Level 7.8 mg/dl (8.6-10.3) L 01/10/23 05:54 Prothromb Time International Ratio 1.1 (0.9-1.1) 01/10/23 05:5 4 Microbiology 01/10/23 01:29 Gram Stain - Final Sputum, Expectorated Diagnostic Findings (Past 24 Hours) Abdomen/Pelvis CT 01/09/23 11:35 CT OF THE ABDOMEN AND PELVIS WITH CONTRAST CLINICAL HISTORY: GI bleed. COMPARISON STUDY: CT of the abdomen and pelvis March 28, 2019. TECHNIQUE: Following IV administration of 94 mL of Optiray, axial images of the abdomen and pelvis were obtained from the lung bases to the proximal femurs. Images were reviewed in the axial, sagittal, and coronal planes. IV contrast was administered without complication. Automated exposure control was utilized for the study. A dose lowering technique was utilized adhering to the principles of ALARA. CT DOSE: 577.55 mGy.cm FINDINGS: Mild airspace opacities within the right lower lobe and right middle lobe are noted. There is cardiomegaly. No pneumatosis, free air or portal venous gas is present. This exam is compromised by motion artifact. Endoscopic clips within the distal esophagus and proximal stomach are noted. There is no hepatic lesions. No biliary ductal dilatation is present. Spleen, adrenal glands and pancreas are unremarkable. There is no biliary or pancreatic ductal dilatation patient. Water attenuation bilateral renal lesions favor cysts. There is no hydronephrosis. Colonic diverticulosis is noted. No evidence for acute diver ticulitis. There is a 3 cm fat-containing focus with minimal adjacent stranding anterior to the distal descending colon. No associated colonic wall thickening is noted. This may reflect epiploic appendages. This may be subacute to chronic. No definite bowel wall thickening is noted. There is apparent wall thickening of several small bowel loops. This could be due to underdistention. There is promi nence of the mesenteric vessels of several small bowel loops. The prostate is enlarged. High balloon within the bladder is present. There is no lymphadenopathy. There are no acute fractures. IMPRESSION: 1. Colonic diverticulosis. No evidence for acute diverticulitis. No bowel obstruction. 2. Possible wall thickening of several small bowel loops which could be due to underdistention. However, given prominent mesenteric vessels, a nonspecific enteritis cannot be excluded. 3. Exam compromised by motion artifact. 4. Enlarged prostate. High balloon within the bladder. 5. Mild alveolar opacities within the right lower and right middle lobe suggestive of an infectious process. ACT 112: Negative or not required by law. Electronically signed by: Inocencio Green M.D. 01/09/2023 2:44 PM Chest X-Ray 01/09/23 14:31 XR chest 1V portable CLINICAL HISTORY: New oxygen requirement COMPARISON STUDY: Chest CT December 28, 2018. Chest radiograph June 14, 2022. FINDINGS: There is no pneumothorax or pleural effusion. No consolidation is identified. Linear left basilar opacity favors atelectasis. Subtle interstitial thickening is greater within the right lung. Cardiomediastinal silhouette is stable. IMPRESSION: Subtle right lung interstitial thickening which likely corresponds to the alveolar opacities on recent abdominal CT. The findings suggest an infectious process. ACT 112: Negative or not required by law. Electronically signed by: Inocencio Green M.D. 01/09/2023 3:16 PM Chest X-Ray 01/10/23 01:27 XR chest 1V portable CLINICAL HISTORY: hypoxia TECHNIQUE: Single frontal radiograph of the chest was obtained. Comparison: Comparison is made to chest radiograph 01/09/2023 FINDINGS: No lines and tubes are seen. Calcified aortic knob is seen. The lungs are clear. No evidence of pleural effusion or pneumothorax. IMPRESSION: Interval improvement of previously noted interstitial opacities. ACT 112: Negative or not required by law. Electronically signed by: Kurtis Coronel M.D. 01/10/2023 7:28 AM I & O Totals 24 Hours 01/09/23 01/10/23 01/11/23 06:59 06:59 06:59 Intake Total 2099.333 / 2099.333 3008.667 / 3008.667 683.833 / 683.833 Output Total 1050 / 1050 2855 / 2855 400 / 400 Balance 1049.333 / 1049.333 153.667 / 153.667 283.833 / 283.833 Cumulative 01/08/23 18:04 thru 01/10/23 11:49 Intake Total 5791.833 Output Total 4305 Balance 1486.833 RT Ventilator Mngmt (Last Documented) Ventilator Ordered Settings Respiratory Rate 20 01/10/23 09:30 Ventilator - PT Measurements Respiratory Rate 20 Resident Activity Tracking Resident Involvement: Resident Care Provided Care Provided: Adult Hospital Medicine (9) Hyperlipidemia Hyperlipidemia type: unspecified Qualified Code(s): E78.5 - Hyperlipidemia, unspecified (10) Hypothyroid Hypothyroidism type: unspecified Qualified Code(s): E03.9 - Hypothyroidism, unspecified
[2023-01-10 07:40] LABS: INR 1.1 (0.9-1.1); Prothrombin Time 11.9 Seconds (9.0-12.0)
[2023-01-10] MEDS: POTASSIUM CHLORIDE / WTR 10 MEQ/100 ML PLCT IV SCH ×4 (07:53→11:50)
[2023-01-10] MEDS: MAGNESIUM SULFATE / D5W 1 GM/100 ML BAG IV SCH ×3 (07:53→11:49)
[2023-01-10 07:54] LABS: Fibrinogen 402 mg/dl (184-400)
[2023-01-10] MEDS: ICU Protocol for HYPERglycemia SCH ×2 (07:54→12:43)
[2023-01-10] MEDS: ATORVASTATIN 10 MG TAB PO SCH (08:15)
[2023-01-10] MEDS: TAMSULOSIN HCL 0.4 MG CAP PO SCH (08:15)
[2023-01-10] MEDS: GABAPENTIN 600 MG TAB PO SCH ×2 (08:15→20:57)
--- NOTE | 2023-01-10 09:50 | Gastroenterology Progress Note ---
Date of Service January 10, 2023 Assessment & Plan (1) Hematemesis: (2) Melena: (3) Acute blood loss anemia: (4) Merlyn-Majano tear: Plan: Continue Protonix gtt 8 mg/hour for 72 hours total Continue Octreotide gtt at 50 micrograms/hour Continue to hold Eliquis Continue supportive care Will plan or repeat EGD later this week Admission and Anticipated Discharge Date Admission Date: January 08, 2023 Subjective Doing much better today. Daughter at bedside. Discussed with nursing staff. No overnight episodes of melena, hematochezia or hematemesis. He denies any fevers, chills, nausea, vomiting, or abdominal pain. No lightheadedness or dizziness. Review of Systems Review of Systems: All systems reviewed & are unremarkable except as noted in HPI & below Physical Exam Constitutional: WD/WN, vitals as above + ill appearing (chronic) Eyes: + anicteric sclerae Respiratory: normal respiratory effort, lungs clear to auscultation Cardiovascular: RRR, no murmur, no edema Gastrointestinal (Abdomen): normal bowel sounds, soft, nontender, no hepatosplenomegaly Skin: + pallor Psychiatric: A+Ox3, euthymic affect Results & Data Results & Data Vital Signs (Past 12 Hours) Vital Signs Temp Pulse Resp BP Pulse Ox O2 Del Method 01/10/23 09:30 75 20 98 Room Air 01/10/23 09:30 140/79 01/10/23 09:00 80 26 H 94 01/10/23 09:00 114/66 01/10/23 08:30 86 26 H 93 01/10/23 08:30 123/78 01/10/23 08:00 77 23 95 01/10/23 08:00 119/75 01/10/23 08:00 Room Air 01/10/23 08:28 37 C 01/10/23 08:13 86 01/10/23 07:30 127/84 01/10/23 07:30 87 16 96 Room Air 01/10/23 07:00 81 20 94 01/10/23 07:00 136/79 01/10/23 01:30 91 H 24 100 01/10/23 01:00 104 H 24 93 01/10/23 01:00 170/102 H 01/10/23 00:30 96 H 19 99 01/10/23 00:30 145/95 H 01/10/23 00:00 105 H 21 94 01/10/23 00:00 152/92 H 01/09/23 23:30 96 H 30 H 94 01/09/23 23:30 159/81 H 01/09/23 23:00 109 H 29 H 100 01/09/23 23:00 167/86 H 01/09/23 22:30 114 H 33 H 99 01/09/23 22:30 156/80 H 01/09/23 22:00 101 H 26 H 99 01/09/23 22:00 153/94 H 01/09/23 23:05 37.5 C PG Care Time/CCT Total # of Minutes Spent Total Time Spent with Patient: Total time spent is greater than 50% in coordination of care (as documented) at patient's floor/unit and/or counseling patient: Coding Level of Care Code 74081 SUB INP/OBS CARE 3/50MIN Diagnoses Hematemesis K92.0 Melena K92.1 Acute blood loss anemia D62 Merlyn-Majano tear K22.6
--- NOTE | 2023-01-10 12:31 | Billing Data ---
Date of Service January 10, 2023 Coding Level of Care Code 69159 SUB INP/OBS CARE MIN
[2023-01-10] MEDS: LACTATED RINGER'S 1,000 ML IV SCH (13:22)
[2023-01-10] MEDS: AMPICILLIN/SULBACTAM SOD 3,000 MG in 0.9 % SODIUM CHLORIDE 100 ML IV SCH ×3 (13:22→23:47)
--- NOTE | 2023-01-10 18:06 | Hospitalist Progress Note ---
Date of Service January 10, 2023 Assessment & Plan (1) Acute GI bleeding: Plan: 87 y/o M w/ PmHx permanent A. fib on Eliquis, hypothyroid, BPH, Hypertension, COPD, restless leg syndrome, B12 deficiency, neuropathy, HLD, admitted for acute GI bleed. Here with acute blood loss anemia-hemoglobin 14.2 on admission and then down to 9.3 Found to have large amounts of fresh blood in the stomach and duodenum on emergent EGD on 01/09 Transferred to ICU after EGD for ongoing hematemesis. Found to have Merlyn- Majano tear in stomach which was clipped and injected with epinephrine Was given PCC on 01/09 to reverse the effect of his apixaban CT abdomen/pelvis performed on 01/09 shows possible small bowel enteritis versus underdistention Transfused 1 unit PRBCs so far on 01/09 Was given 2 g of IV calcium gluconate Had large amount of melena on 01/09 but none since then and no further hematemesis Remains HD stable and downgraded out of ICU on 01/10 Appreciate GI consultation -Continue Protonix drip, octreotide drip -Plan to repeat EGD in 1-2 days as per GI to look for exact source of bleeding -d/w GI--> ok to give clear liquids this evening, then NPO after midnight in case of need for EGD Mon -continue IV fluids -Continue holding apixaban -follow CBC in AM (2) Aspiration pneumonia: Plan: With hypoxia, tachypnea, WBC count 11, and fever on 01/09 CXR with right sided infiltrates PULM does not think he has PNA but recommends treating with Unasyn x 5 days BCxs-NGTD SPutum Cx pending Improved now with starting Zosyn x 1 dose and now on Unasyn since 01/10-no more fever, weaned to room air, leukocytosis resolved (3) Electrolyte abnormality: Plan: hypokalemia nd hypomagnesemia-both replaced Ca++ also replaced follow BMP, magnesium (4) Atrial fibrillation, permanent: Plan: Rate controlled Holding home Eliquis for GI bleed Holding home propranolol in case of hypotension from blood loss Monitor on telemetry (5) Benign essential hypertension: Plan: Blood pressures are stable Holding home propranolol and bumetanide (6) COPD (chronic obstructive pulmonary disease): Plan: Was requiring oxygen on 01/09 after vomiting and aspiration PNA-now on room air No wheezing Could be related to aspiration given chest x-ray findings of developing infiltrate on the right side Not on maintenance inhalers at home (7) BPH with obstruction/lower urinary tract symptoms: Plan: -Continue home tamsulosin. -Difficulty voiding on and before arrival. -Inserted palumbo for voiding troubles-continue (8) Hyperlipidemia: Plan: Continue home atorvastatin (9) Hypothyroid: Plan: TSH normal in 05/2022 Continue home levothyroxine (10) Neuropathy: Plan: -Continue home amitriptyline, gabapentin. (11) B12 deficiency: Plan: Receives once monthly B12 injections Plan DVT prophylaxis-SCDs Disposition-continued stay but downgrade to PCU Disucussed care with son at bedside on 01/10 Admission and Anticipated Discharge Date Admission Date: January 08, 2023 Subjective Pt feeling better today. No nausea, no abd pain. Had some left sided chest pain for a brief time earlier today that went away on its own. No further melena since yesterday. Is coughing up gannon sputum and having coughing fits. Weaned off O2. Had a fever last night and was started on ZOsyn, de-escalated to Unasyn today. Downgraded out of ICU I discussed his care with GI Dr. Adams and with ICU resident ALso discussed his care with his son at the bedside Physical Exam Constitutional: WD/WN, vitals as above Neck: trachea midline, no thyromegaly Respiratory: normal respiratory effort and + cough; not tachypneic Auscultation: + rhonchi (right mid lung); no crackles and no wheezes Cardiovascular: Rate/Rhythm: regular rate and + irregularly irregular Heart Sounds: no murmur Extremities: no edema Chest (Breasts): Chest: normal inspection of chest Gastrointestinal (Abdomen): normal bowel sounds, soft, nontender, no hepatosplenomegaly Musculoskeletal: Extremities: extremities normal to inspection; no cyanosis and no clubbing Skin: no rashes, warm and dry Neurologic: moves all extremities and awake; no focal motor deficits Psychiatric: A+Ox3, euthymic affect Lymphatic: no lymphedema Results & Data Results & Data Vital Signs (Past 12 Hours) Vital Signs Temp Pulse Resp BP Pulse Ox O2 Del Method 01/10/23 17:00 81 95 01/10/23 16:00 83 24 93 01/10/23 16:00 130/94 01/10/23 15:00 71 22 94 01/10/23 15:00 136/85 01/10/23 14:01 76 15 97 Room Air 01/10/23 14:01 124/79 01/10/23 14:00 75 23 01/10/23 16:31 36.8 C 01/10/23 13:00 66 21 99 01/10/23 12:00 67 25 H 90 Room Air 01/10/23 12:00 114/59 L 01/10/23 11:00 79 28 H 95 01/10/23 11:00 126/69 01/10/23 10:00 79 20 96 01/10/23 10:00 135/75 01/10/23 09:30 75 20 98 Room Air 01/10/23 09:30 140/79 01/10/23 09:00 80 26 H 94 01/10/23 09:00 114/66 01/10/23 08:30 86 26 H 93 01/10/23 08:30 123/78 01/10/23 08:00 77 23 95 01/10/23 08:00 119/75 01/10/23 08:00 Room Air 01/10/23 08:28 37 C 01/10/23 08:13 86 01/10/23 07:30 127/84 01/10/23 07:30 87 16 96 Room Air 01/10/23 07:00 81 20 94 01/10/23 07:00 136/79 Laboratory Results CBC,BMP, magnesium reviewed SPutum and blood cultures reviewed PG Care Time/CCT Total # of Minutes Spent Total Time Spent with Patient: Total time spent is greater than 50% in coordination of care (as documented) at patient's floor/unit and/or counseling patient: Coding Level of Care Code 70973 SUB INP/OBS CARE 3/50MIN Diagnoses Acute GI bleeding K92.2 Aspiration pneumonia J69.0 Electrolyte abnormality E87.8 Atrial fibrillation, permanent I48.2 Benign essential hypertension I10 COPD (chronic obstructive pulmonary disease) J44.9 BPH with obstruction/lower urinary tract symptoms N40.1; N13.8 Hyperlipidemia E78.5 Hyperlipidemia type: unspecified Hypothyroid E03.9 Hypothyroidism type: unspecified Neuropathy G62.9 B12 deficiency E53.8 (8) Hyperlipidemia Hyperlipidemia type: unspecified Qualified Code(s): E78.5 - Hyperlipidemia, unspecified (9) Hypothyroid Hypothyroidism type: unspecified Qualified Code(s): E03.9 - Hypothyroidism, unspecified
[2023-01-10] MEDS: AMITRIPTYLINE HCL 25 MG TAB PO SCH (20:57)
[2023-01-10] MEDS: guaiFENesin/DEXTROM SYRUP 100MG/10MG 5ML UDC PO PRN (21:33)
[2023-01-11] MEDS: OCTREOTIDE ACETATE 500 MCG in DEXTROSE 5% 100 ML IV SCH ×3 (01:08→21:58)
[2023-01-11] MEDS: PANTOprazole 40 MG in DEXTROSE 5% 100 ML IV SCH ×4 (03:48→22:00)
[2023-01-11] MEDS: LACTATED RINGER'S 1,000 ML IV SCH (03:51)
[2023-01-11] MEDS: AMPICILLIN/SULBACTAM SOD 3,000 MG in 0.9 % SODIUM CHLORIDE 100 ML IV SCH ×3 (06:00→17:33)
[2023-01-11] MEDS: LEVOTHYROXINE SODIUM 25 MCG TABLET PO SCH (06:38)
[2023-01-11 07:41] LABS: Hematocrit (blood only) 26.9 % (42.0-52.0); Hemoglobin 9.1 g/dl (14.0-18.0); Mean Corpuscular Hemoglobin 31.2 pg (25.0-34.0); Mean Corpuscular Hgb Conc 33.8 g/dL (32.0-36.0); Mean Corpuscular Volume 92.1 fL (80.0-100.0); Mean Platelet Volume 11.2 fL (9.4-12.4); Platelet Count 107 K/uL (130-400); RDW Coefficient of Variation 13.9 % (11.5-14.5); RDW Standard Deviation 46.9 fL (36.4-46.3); Red Blood Count 2.92 M/uL (4.70-6.10); White Blood Count 5.87 K/ul (4.8-10.8)
[2023-01-11 08:07] LABS: Basophils # (auto) 0.01 K/uL (0-0.2); Basophils % (auto) 0.2 %; Echinocytes 1+; Eosinophils # (auto) 0.07 K/uL (0-0.50); Eosinophils % (auto) 1.2 %; Immature Granulocytes # (auto) 0.01 K/uL (0.01-0.20); Immature Granulocytes % (auto) 0.2 %; Lymphocytes # (auto) 1.02 K/uL (1.2-3.4); Lymphocytes % (auto) 17.4 %; Monocytes % (auto) 10.2 %; Neutrophils # (auto) 4.16 K/uL (1.40-6.50); Neutrophils % (auto) 70.8 %
[2023-01-11] MEDS: guaiFENesin/DEXTROM SYRUP 100MG/10MG 5ML UDC PO PRN (08:18)
[2023-01-11] MEDS: PROPRANOLOL HCL 10 MG TAB PO SCH ×2 (09:36→20:00)
[2023-01-11] MEDS: TAMSULOSIN HCL 0.4 MG CAP PO SCH (09:38)
[2023-01-11] MEDS: ATORVASTATIN 10 MG TAB PO SCH (09:38)
[2023-01-11 09:43] LABS: BUN Creatinine Ratio 12.6 (10-20); Creatinine Clr Calc Pharmacy 69.5 ml/min; Est GFR (African American) 82.5 ml/min; Est GFR (Non-African American) 71.2 ml/min; Magnesium 1.8 mg/dl (1.7-2.4); Potassium 3.1 mmol/L (3.5-5.1)
[2023-01-11] MEDS ORDERED: METOCLOPRAMIDE HCL INJ 5 MG/ML 2 ML VIAL IV STA (09:46)
[2023-01-11] MEDS ORDERED: POTASSIUM PHOS 3 MMOL/1 ML INFUSION IV STA (09:54)
[2023-01-11] MEDS ORDERED: MAGNESIUM SULFATE / D5W 1 GM/100 ML BAG IV ONE (10:00)
--- NOTE | 2023-01-11 10:02 | Gastroenterology Progress Note ---
Date of Service January 11, 2023 Assessment & Plan (1) Hematemesis: (2) Melena: (3) Acute blood loss anemia: (4) Merlyn-Majano tear: Plan: Continue Protonix gtt 8 mg/hour for 72 hours total Continue Octreotide gtt at 50 micrograms/hour NPO for EGD today due to drop in H&H and new onset of nausea. Reglan 10 mg IV x1 dose now. Further recommendations pending results of testing. Admission and Anticipated Discharge Date Admission Date: January 08, 2023 Supervising Physician Co-Signing Physician Notes Agree with TODD Sargent as above Abd: Soft, NT, ND, +BS Continue current therapy and supportive care Proceed with repeat EGD today. Subjective Patient states he is not feeling well today. Increased fatigue and weakness. H&H did drop from 10.5/30.5 to 9.1/26.9 today. No overt GIB symptoms although he is reporting nausea but no vomiting. Continues PPI and octreotide ggts. NPO for now. Review of Systems Constitutional: as per Subjective / HPI Respiratory: no cough and no dyspnea Cardiovascular: no chest pain and no palpitations Gastrointestinal: as per Subjective / HPI Physical Exam Constitutional: WD/WN, vitals as above Eyes: EOM intact bilaterally Neck: normal visual inspection Respiratory: normal respiratory effort, lungs clear to auscultation Cardiovascular: Rate/Rhythm: + irregularly irregular Heart Sounds: + murmur Gastrointestinal (Abdomen): Inspection/Auscultation: + hyperactive bowel sounds Percussion/Palpation: + abdomen tender and abdomen soft; no guarding and abdomen not rigid Musculoskeletal: Extremities: extremities normal to inspection Skin: + pallor Psychiatric: A+Ox3, euthymic affect Results & Data Results & Data Vital Signs (Past 12 Hours) Vital Signs Temp Pulse Resp BP Pulse Ox O2 Del Method 01/11/23 08:04 37.1 C 81 22 158/100 H 95 Room Air 01/11/23 04:51 88 154/100 H 01/11/23 03:55 37.2 C 77 18 155/121 H 91 Room Air 01/11/23 01:43 80 159/83 H 01/11/23 01:07 84 177/119 H 01/10/23 22:00 36.8 C 82 18 170/105 H 95 Room Air PG Care Time/CCT Total # of Minutes Spent Total Time Spent with Patient: Total time spent is greater than 50% in coordination of care (as documented) at patient's floor/unit and/or counseling patient: Coding Level of Care Code 84673 SUB INP/OBS CARE 3/50MIN Diagnoses Hematemesis K92.0 Melena K92.1 Acute blood loss anemia D62 Merlyn-Majano tear K22.6
[2023-01-11] MEDS ORDERED: POTASSIUM PHOSPHATE 15 MMOL in SODIUM CHLORIDE 0.9% 250 ML IV ONE (10:15)
[2023-01-11] MEDS ORDERED: METOCLOPRAMIDE HCL INJ 5 MG/ML 2 ML VIAL ONE (11:54)
[2023-01-11] MEDS: GABAPENTIN 600 MG TAB PO SCH ×2 (11:57→20:00)
[2023-01-11] MEDS ORDERED: PROPOFOL IV EMULSION 10 MG/ML 20 ML VIAL IV ONE ×3 (13:54→15:43)
[2023-01-11] MEDS ORDERED: LIDOCAINE 2% MPF LOCAL 5 ML VIAL ONE ×3 (13:54→15:43)
--- NOTE | 2023-01-11 16:20 | GI REPORT ---
Patient Name: Filiberto Simmons Procedure Date: 01/11/2023 3:44 PM Date of : 1935 Admit Type: Inpatient Age: 87 Gender: Male Attending MD: Froylan Adams DO, Procedure: Upper GI endoscopy Providers: Froylan Adams DO Referring MD: Hanane Bass MD Indications: Acute post hemorrhagic anemia Medicines: Monitored Anesthesia Care Complications: No immediate complications. Estimated Blood Loss: Estimated blood loss: none. Procedure: Pre-Anesthesia Assessment: - Prior to the procedure, a History and Physical was performed, and patient medications and allergies were reviewed. The patient's tolerance of previous anesthesia was also reviewed. The risks and benefits of the procedure and the sedation options and risks were discussed with the patient. All questions were answered, and informed consent was obtained. Prior Anticoagulants: The patient has taken Eliquis (apixaban), last dose was 5 days prior to procedure. ASA Grade Assessment: III - A patient with severe systemic disease. After reviewing the risks and benefits, the patient was deemed in satisfactory condition to undergo the procedure. After obtaining informed consent, the endoscope was passed under direct vision. Throughout the procedure, the patient's blood pressure, pulse, and oxygen saturations were monitored continuously. The Endoscope was introduced through the mouth, and advanced to the second part of duodenum. The upper GI endoscopy was accomplished without difficulty. The patient tolerated the procedure well. Findings: The examined esophagus was normal. A 10 mm non-bleeding Merlyn-Majano tear with stigmata of recent bleeding was found. Area was successfully injected with 2 mL of a 0.1 mg/mL solution of epinephrine for hemostasis. For hemostasis, two hemostatic clips were successfully placed (MR conditional). Clip edge gluer: Fitbit. There was no bleeding at the end of the procedure. The examined duodenum was normal. Impression: - Normal esophagus. - Merlyn-Majano tear. Injected. Clips (MR conditional) were placed. Clip edge gluer: Fitbit. - Normal examined duodenum. - No specimens collected. Recommendation: - Return patient to ICU for ongoing care. - Advance diet as tolerated. - Continue present medications. - Complete 72 hours of Protonix gtt at 8 mg/hr, then Protonix 40 mg by mouth twice daily - Complete 72 hours of Octreotide gtt - Return to primary care physician as previously scheduled. Froylan Adams, DO 01/11/2023 4:19:55 PM This report has been signed electronically. Note Initiated On: 01/11/2023 3:44 PM Number of Addenda: 0 I attest to the content of the Intraoperative Record and orders documented therein, exceptions below {[id number]}
--- NOTE | 2023-01-11 16:22 | Anesthesiology Progress Note ---
Date of Service January 11, 2023 Anesthesia Post Procedure Vital Signs Vital Signs: Temp Pulse Pulse Pulse Resp BP Pulse Ox 01/11/23 13:27 36.6 C 66 18 151/91 H 96 01/11/23 12:33 83 01/11/23 12:33 01/11/23 11:35 37.3 C 77 20 166/106 H 97 01/11/23 08:04 37.1 C 81 22 158/100 H 95 01/11/23 04:51 88 154/100 H 01/11/23 03:55 37.2 C 77 18 155/121 H 91 01/11/23 01:43 80 159/83 H 01/11/23 01:07 84 177/119 H 01/10/23 22:00 36.8 C 82 18 170/105 H 95 01/10/23 19:38 37.2 C 79 24 146/93 H 93 01/10/23 17:00 81 95 01/10/23 16:31 36.8 C O2 Del Method 01/11/23 13:27 Room Air 01/11/23 12:33 01/11/23 12:33 Room Air 01/11/23 11:35 Room Air 01/11/23 08:04 Room Air 01/11/23 04:51 01/11/23 03:55 Room Air 01/11/23 01:43 01/11/23 01:07 01/10/23 22:00 Room Air 01/10/23 19:38 Room Air 01/10/23 17:00 01/10/23 16:31 Transfer of Care Handoff Completed per policy Notes Mental Status: alert / awake / arousable and participated in evaluation Patient Amnestic to Procedure: Yes Nausea / Vomiting: adequately controlled Pain: adequately controlled Airway Patency, RR, SpO2: stable & adequate BP & HR: stable & adequate Hydration State: stable & adequate Anesthetic Complications: no major complications apparent and Pt Satisfied with anesthetic care
--- NOTE | 2023-01-11 17:49 | Hospitalist Progress Note ---
Date of Service January 11, 2023 Assessment & Plan (1) Acute GI bleeding: Plan: 87 y/o M w/ PmHx permanent A. fib on Eliquis, hypothyroid, BPH, Hypertension, COPD, restless leg syndrome, B12 deficiency, neuropathy, HLD, admitted for acute GI bleed. Here with acute blood loss anemia-hemoglobin 14.2 on admission and then down to 9.3 within 24 hours Found to have large amounts of fresh blood in the stomach and duodenum on emergent EGD on 01/09. Found to have Merlyn-Majano tear in stomach which was clipped and injected with epinephrine Transferred to ICU after EGD for ongoing hematemesis after EGD. Was given PCC on 01/09 to reverse the effect of his apixaban and apixaban has been held CT abdomen/pelvis performed on 01/09 shows possible small bowel enteritis versus underdistention Transfused 1 unit PRBCs on 01/09 and hemoglobin hasmukh to 10.5 Had large amount of melena on 01/09 but none since then and no further hematemesis Remains HD stable and downgraded out of ICU on 01/10 Hemoglobin down further to 9.1 on 01/11 and was taken for repeat EGD EGD on 01/11 again showed Merlyn-Majano tear with active bleeding and previous clips appear to have fallen off-clipped again with 2 clips and epinephrine injected Appreciate GI consultation and management -Continue Protonix drip, octreotide drip -Advance diet as tolerated-clear liquids only for now -Continue IV fluids but changed to D5 half-normal saline +20 mEq KCl at 70 MLS per hour-with hypernatremia, hypokalemia on labs -Continue holding apixaban -follow CBC this evening and again in the morning -Transfuse blood if hemodynamically unstable or hemoglobin trending down less than 7-8 (2) Electrolyte abnormality: Plan: hypokalemia and hypomagnesemia, hypophosphatemia Continues with hypocalcemia -Gave 1 g IV magnesium sulfate, 15 mmol of potassium phosphorus, and changing IV fluids to D5 half-normal saline with 20 mill equivalents KCl -Give 1 g calcium gluconate Follow BMP, magnesium, phosphorus in the morning (3) Thrombocytopenia: Plan: Platelets have been mildly low since admission in the low 100s-1 teens but are low normal at baseline likely secondary to his B12 deficiency Likely secondary to consumption? Follow CBC again in the morning If worsens, would do DIC work-up and consult hematology (4) Benign essential hypertension: Plan: Blood pressures are becoming more elevated Restart home propranolol but continue holding bumetanide Monitor blood pressures (5) Aspiration pneumonia: Plan: With hypoxia, tachypnea, WBC count 11, and fever on 01/09 CXR with right sided infiltrates PULM does not think he has PNA but recommends treating with Unasyn x 5 days-last day of treatment will be 01/14 BCxs-remain NGTD SPutum Cx preliminary with light normal kasey Improved now with starting antibiotics-received Zosyn x 1 dose on 01/09 and now on Unasyn since 01/10-no more fever, weaned to room air, leukocytosis resolved, cough improving (6) Atrial fibrillation, permanent: Plan: Remains rate controlled Continue holding home Eliquis for GI bleed -Okay to restart home propranolol as blood pressures have been elevated Monitor on telemetry (7) COPD (chronic obstructive pulmonary disease): Plan: Was requiring oxygen on 01/09 after vomiting and aspiration PNA-now on room air No wheezing Could be related to aspiration given chest x-ray findings of developing infiltrate on the right side Not on maintenance inhalers at home (8) BPH with obstruction/lower urinary tract symptoms: Plan: -Continue home tamsulosin. -Difficulty voiding on and before arrival. -Inserted palumbo for voiding troubles-continue for now and trial of void prior to discharge (9) Hyperlipidemia: Plan: Continue home atorvastatin (10) Hypothyroid: Plan: TSH normal in 05/2022 Continue home levothyroxine (11) Neuropathy: Plan: -Continue home amitriptyline, gabapentin. (12) B12 deficiency: Plan: Receives once monthly B12 injections Plan DVT prophylaxis-SCDs Disposition-continued stay on PCU Discussed care with 2 daughters, one of his sons, and his [id number] at the bedside on the evening of 01/11 Admission and Anticipated Discharge Date Admission Date: January 08, 2023 Subjective Patient denies any melena today. No nausea or abdominal pain. He went for EGD which showed some continued oozing of blood from Merlyn-Majano tear and the previous clips had fallen off. 2 new clips were placed and the site was injected with epinephrine Telemetry with atrial fibrillation with rates in the 70s to 80s He had some hypertension overnight Physical Exam Constitutional: WD/WN, vitals as above Neck: trachea midline, no thyromegaly Respiratory: not tachypneic Auscultation: lungs clear to auscultation bilaterally Cardiovascular: Rate/Rhythm: regular rate and + irregularly irregular Heart Sounds: no murmur Extremities: no edema Chest (Breasts): Chest: normal inspection of chest Gastrointestinal (Abdomen): normal bowel sounds, soft, nontender, no hepatosplenomegaly Musculoskeletal: Extremities: extremities normal to inspection; no cyanosis and no clubbing Skin: no rashes, warm and dry Neurologic: moves all extremities and awake; no focal motor deficits Psychiatric: A+Ox3, euthymic affect Lymphatic: no lymphedema Results & Data Results & Data Vital Signs (Past 12 Hours) Vital Signs Temp Pulse Pulse Pulse Resp BP Pulse Ox 01/11/23 16:45 72 16 145/107 H 96 01/11/23 16:30 72 16 138/83 96 01/11/23 16:15 83 18 183/120 H 100 01/11/23 13:27 36.6 C 66 18 151/91 H 96 01/11/23 12:33 83 01/11/23 12:33 01/11/23 11:35 37.3 C 77 20 166/106 H 97 01/11/23 08:04 37.1 C 81 22 158/100 H 95 O2 Del Method 01/11/23 16:45 Room Air 01/11/23 16:30 Room Air 01/11/23 16:15 Room Air 01/11/23 13:27 Room Air 01/11/23 12:33 01/11/23 12:33 Room Air 01/11/23 11:35 Room Air 01/11/23 08:04 Room Air Laboratory Results CBC, BMP, magnesium, phosphorus reviewed Sputum culture preliminary light normal kasey Blood cultures-no growth to date PG Care Time/CCT Total # of Minutes Spent Total Time Spent with Patient: Total time spent is greater than 50% in coordination of care (as documented) at patient's floor/unit and/or counseling patient: Coding Level of Care Code 40779 SUB INP/OBS CARE 3/50MIN Diagnoses Acute GI bleeding K92.2 Electrolyte abnormality E87.8 Thrombocytopenia D69.6 Benign essential hypertension I10 Aspiration pneumonia J69.0 Atrial fibrillation, permanent I48.2 COPD (chronic obstructive pulmonary disease) J44.9 BPH with obstruction/lower urinary tract symptoms N40.1; N13.8 Hyperlipidemia E78.5 Hyperlipidemia type: unspecified Hypothyroid E03.9 Hypothyroidism type: unspecified Neuropathy G62.9 B12 deficiency E53.8 (9) Hyperlipidemia Hyperlipidemia type: unspecified Qualified Code(s): E78.5 - Hyperlipidemia, unspecified (10) Hypothyroid Hypothyroidism type: unspecified Qualified Code(s): E03.9 - Hypothyroidism, unspecified
[2023-01-11] MEDS ORDERED: STAT IV STA (17:51)
[2023-01-11] MEDS ORDERED: CALCIUM GLUCONATE 10% 1,000 MG in DEXTROSE 5% 50 ML IV ONE (17:51)
[2023-01-11 18:01] LABS: Hematocrit (blood only) 33.3 % (42.0-52.0); Hemoglobin 11.2 g/dl (14.0-18.0); Mean Corpuscular Hemoglobin 31.1 pg (25.0-34.0); Mean Corpuscular Hgb Conc 33.6 g/dL (32.0-36.0); Mean Corpuscular Volume 92.5 fL (80.0-100.0); Mean Platelet Volume 10.9 fL (9.4-12.4); Platelet Count 131 K/uL (130-400); RDW Coefficient of Variation 13.6 % (11.5-14.5); RDW Standard Deviation 46.3 fL (36.4-46.3); White Blood Count 7.74 K/ul (4.8-10.8)
[2023-01-11 19:02] LABS: Basophils # (auto) 0.02 K/uL (0-0.2); Basophils % (auto) 0.3 %; Dohle Bodies 1+; Eosinophils # (auto) 0.21 K/uL (0-0.50); Eosinophils % (auto) 2.7 %; Immature Granulocytes # (auto) 0.02 K/uL (0.01-0.20); Immature Granulocytes % (auto) 0.3 %; Lymphocytes # (auto) 1.57 K/uL (1.2-3.4); Lymphocytes % (auto) 20.3 %; Monocytes # (auto) 0.76 K/uL (0.11-0.59); Monocytes % (auto) 9.8 %; Neutrophils # (auto) 5.16 K/uL (1.40-6.50); Neutrophils % (auto) 66.6 %
[2023-01-11] MEDS: D5W AND 1/2NSS + 20MEQ KCL 20 MEQ/1,000 ML BAG IV SCH (19:55)
[2023-01-11] MEDS: AMITRIPTYLINE HCL 25 MG TAB PO SCH (20:00)
[2023-01-12] MEDS: AMPICILLIN/SULBACTAM SOD 3,000 MG in 0.9 % SODIUM CHLORIDE 100 ML IV SCH ×5 (01:20→23:15)
[2023-01-12] MEDS: PANTOprazole 40 MG in DEXTROSE 5% 100 ML IV SCH ×5 (03:07→21:27)
[2023-01-12] MEDS: guaiFENesin/DEXTROM SYRUP 100MG/10MG 5ML UDC PO PRN (05:26)
[2023-01-12] MEDS: LEVOTHYROXINE SODIUM 25 MCG TABLET PO SCH (06:09)
[2023-01-12] MEDS: OCTREOTIDE ACETATE 500 MCG in DEXTROSE 5% 100 ML IV SCH ×2 (07:41→17:23)
[2023-01-12 08:41] LABS: Hematocrit (blood only) 32.7 % (42.0-52.0); Mean Corpuscular Hemoglobin 31.2 pg (25.0-34.0); Mean Corpuscular Hgb Conc 33.6 g/dL (32.0-36.0); Mean Corpuscular Volume 92.6 fL (80.0-100.0); Mean Platelet Volume 11.1 fL (9.4-12.4); Platelet Count 147 K/uL (130-400); RDW Coefficient of Variation 13.5 % (11.5-14.5); RDW Standard Deviation 46.2 fL (36.4-46.3); Red Blood Count 3.53 M/uL (4.70-6.10); White Blood Count 7.57 K/ul (4.8-10.8)
[2023-01-12 08:49] LABS: Basophils # (auto) 0.02 K/uL (0-0.2); Basophils % (auto) 0.3 %; Eosinophils # (auto) 0.34 K/uL (0-0.50); Eosinophils % (auto) 4.5 %; Immature Granulocytes # (auto) 0.03 K/uL (0.01-0.20); Immature Granulocytes % (auto) 0.4 %; Lymphocytes # (auto) 1.49 K/uL (1.2-3.4); Lymphocytes % (auto) 19.7 %; Monocytes # (auto) 0.62 K/uL (0.11-0.59); Monocytes % (auto) 8.2 %; Neutrophils # (auto) 5.07 K/uL (1.40-6.50); Neutrophils % (auto) 66.9 %
[2023-01-12 08:58] LABS: Albumin Globulin Ratio 1.2 (0.9-2); BUN Creatinine Ratio 12.5 (10-20); Bilirubin,Total 1.5 mg/dl (0.2-1.0); Calcium 7.8 mg/dl (8.6-10.3); Est GFR (African American) 88.9 ml/min; Est GFR (Non-African American) 76.7 ml/min; Globulin 2.5 gm/dl (2.5-4.0); Phosphorus 2.7 mg/dl (2.5-4.9); Potassium 3.4 mmol/L (3.5-5.1); Total Protein 5.5 gm/dl (6.0-8.3)
[2023-01-12 09:00] LABS: Fibrinogen 492 mg/dl (184-400); Partial Thromboplastin Time 27.3 Seconds (21.0-31.0); Prothrombin Time 11.4 Seconds (9.0-12.0)
[2023-01-12 09:13] LABS: D Dimer 1040 ug/L FEU (0-500)
[2023-01-12] MEDS: GABAPENTIN 600 MG TAB PO SCH ×2 (10:03→20:37)
[2023-01-12] MEDS: PROPRANOLOL HCL 10 MG TAB PO SCH ×2 (10:04→20:38)
[2023-01-12] MEDS: TAMSULOSIN HCL 0.4 MG CAP PO SCH (10:04)
[2023-01-12] MEDS: ATORVASTATIN 10 MG TAB PO SCH (10:05)
[2023-01-12] MEDS ORDERED: POTASSIUM CHLORIDE / WTR 10 MEQ/100 ML PLCT IV ONE (10:15)
--- NOTE | 2023-01-12 10:15 | Gastroenterology Progress Note ---
Date of Service January 12, 2023 Assessment & Plan (1) Hematemesis: (2) Acute blood loss anemia: (3) Merlyn-Majano tear: Plan: Continue Protonix gtt at 8 mg/hr and Octreotide gtt at 50 mcg/hr for 72 hours total, then start Pantoprazole 40 mg BID. Clear liquid diet today. Can advance slowly as tolerated this evening if no overt GIB sx. Continue supportive care. Admission and Anticipated Discharge Date Admission Date: January 08, 2023 Subjective Patient reports feeling slightly better today although he is fatigued. Describes some mild abdominal discomfort this morning but no abdominal pain now. No n/v or overt GIB. H&H is currently stable today at 11.0/32.7 with hemoglobin yesterday of 11.2. Continues PPI and octreotide ggts. Clear liquid diet. Review of Systems Constitutional: as per Subjective / HPI Gastrointestinal: as per Subjective / HPI Physical Exam Constitutional: WD/WN, vitals as above Eyes: EOM intact bilaterally Neck: normal visual inspection Respiratory: normal respiratory effort, lungs clear to auscultation Cardiovascular: Rate/Rhythm: + irregularly irregular Heart Sounds: + murmur Gastrointestinal (Abdomen): Inspection/Auscultation: + hyperactive bowel sounds Percussion/Palpation: + abdomen tender and abdomen soft; no guarding and abdomen not rigid Musculoskeletal: Extremities: extremities normal to inspection Skin: + pallor Psychiatric: A+Ox3, euthymic affect Results & Data Results & Data Vital Signs (Past 12 Hours) Vital Signs Temp Pulse Pulse Resp BP Pulse Ox O2 Del Method 01/12/23 08:07 36.9 C 65 20 163/91 H 96 Room Air 01/12/23 08:04 66 01/12/23 04:19 37.1 C 64 21 158/87 H 95 Room Air 01/11/23 23:13 37.7 C H 67 16 136/89 98 Room Air PG Care Time/CCT Total # of Minutes Spent Total Time Spent with Patient: Total time spent is greater than 50% in coordination of care (as documented) at patient's floor/unit and/or counseling patient: Coding Level of Care Code 96427 SUB INP/OBS CARE 3/50MIN Diagnoses Hematemesis K92.0 Acute blood loss anemia D62 Merlyn-Majano tear K22.6
[2023-01-12] MEDS: D5W AND 1/2NSS + 20MEQ KCL 20 MEQ/1,000 ML BAG IV SCH (10:50)
--- NOTE | 2023-01-12 15:46 | Hospitalist Progress Note ---
Date of Service January 12, 2023 Assessment & Plan (1) Acute GI bleeding: Plan: 87 y/o M w/ PmHx permanent A. fib on Eliquis, hypothyroid, BPH, Hypertension, COPD, restless leg syndrome, B12 deficiency, neuropathy, HLD, admitted for acute GI bleed. Here with acute blood loss anemia-hemoglobin 14.2 on admission and then down to 9.3 within 24 hours Found to have large amounts of fresh blood in the stomach and duodenum on emergent EGD on 01/09. Found to have Merlyn-Majano tear in stomach which was clipped and injected with epinephrine Transferred to ICU after EGD for ongoing hematemesis after EGD. Was given PCC on 01/09 to reverse the effect of his apixaban and apixaban has been held CT abdomen/pelvis performed on 01/09 shows possible small bowel enteritis versus underdistention Transfused 1 unit PRBCs on 01/09 and hemoglobin hasmukh to 10.5 Had large amount of melena on 01/09 but none since then and no further hematemesis Remains HD stable and downgraded out of ICU on 01/10 Hemoglobin down further to 9.1 on 01/11 and was taken for repeat EGD EGD on 01/11 again showed Merlyn-Majano tear with active bleeding and previous clips appear to have fallen off-clipped again with 2 clips and epinephrine injected No further bleeding since then, hgb up to 11 now and stable Tolerating clears diet Appreciate GI consultation and management -Continue Protonix drip, octreotide drip through tomorrow then transition to PPI po bid and dc octreotide -Advance diet as tolerated-go to full liquids for this evening -will dc fluids now -Continue holding apixaban-d/w his [employer], Dr. Briones, who recommended holding Eliquis for at least 1 month given the life threatening bleed -follow CBC in the morning -Transfuse blood if hemodynamically unstable or hemoglobin trending down less than 7-8 (2) Electrolyte abnormality: Plan: hypokalemia improved but persists today replace with KCl 10 meq IV x 1 Follow BMP, magnesium, phosphorus in the morning (3) Thrombocytopenia: Plan: Platelets have been mildly low since admission in the low 100s-1 teens but are low normal at baseline likely secondary to his B12 deficiency Likely secondary to consumption? Now improved up to 147 Fibrinogen elevated, D-dimer high, PT/PTT normal, no evidence of DIC Follow CBC again in the morning (4) Benign essential hypertension: Plan: Blood pressures are becoming more elevated continue home propranolol but continue holding bumetanide-may restart tomorrow -dc maintenance IVFs Monitor blood pressures (5) Aspiration pneumonia: Plan: With hypoxia, tachypnea, WBC count 11, and fever on 01/09 CXR with right sided infiltrates PULM does not think he has PNA but recommends treating with Unasyn x 5 days-last day of treatment will be 01/14 BCxs-remain NGTD SPutum Cx with light normal kasey Improved now with starting antibiotics-received Zosyn x 1 dose on 01/09 and now on Unasyn since 01/10-no more fever, weaned to room air, leukocytosis resolved, cough improving (6) Atrial fibrillation, permanent: Plan: Remains rate controlled Continue holding home Eliquis for GI bleed x 1 month as per recommendation from his [employer] Dr. Briones. -continue home propranolol as blood pressures have been elevated -Monitor on telemetry (7) COPD (chronic obstructive pulmonary disease): Plan: Was requiring oxygen on 01/09 after vomiting and aspiration PNA-now on room air No wheezing Could be related to aspiration given chest x-ray findings of developing inf iltrate on the right side Not on maintenance inhalers at home (8) BPH with obstruction/lower urinary tract symptoms: Plan: -Continue home tamsulosin. -Difficulty voiding on and before arrival. -Inserted palumbo for voiding troubles-continue for now and trial of void -plan for tomorrow TOV (9) Hyperlipidemia: Plan: Continue home atorvastatin (10) Hypothyroid: Plan: TSH normal in 05/2022 Continue home levothyroxine (11) Neuropathy: Plan: -Continue home amitriptyline, gabapentin. (12) B12 deficiency: Plan: Receives once monthly B12 injections Plan DVT prophylaxis-SCDs Disposition-continued stay on PCU, slowly improving, PT/OT consults palced and may need rehab. Discussed care with daughter and nephew at the bedside on 01/12 Admission and Anticipated Discharge Date Admission Date: January 08, 2023 Subjective Pt feeling better today. No melena or BM at all. No nausea, tolerating clears. No CP, SOB, or cough. Discussed care with daughter at bedside. Physical Exam Constitutional: WD/WN, vitals as above Neck: trachea midline, no thyromegaly Respiratory: normal respiratory effort Auscultation: lungs clear to auscultation bilaterally Cardiovascular: Rate/Rhythm: regular rate and + irregularly irregular Heart Sounds: no murmur Extremities: no edema Chest (Breasts): Chest: normal inspection of chest Gastrointestinal (Abdomen): normal bowel sounds, soft, nontender, no hepatosplenomegaly Musculoskeletal: Extremities: extremities normal to inspection; no cyanosis and no clubbing Skin: no rashes, warm and dry Neurologic: moves all extremities and awake; no focal motor deficits Psychiatric: A+Ox3, euthymic affect Lymphatic: no lymphedema Results & Data Results & Data Vital Signs (Past 12 Hours) Vital Signs Temp Pulse Pulse Resp BP Pulse Ox O2 Del Method 01/12/23 15:29 36.6 C 58 L 18 149/102 H 98 Room Air 01/12/23 10:41 37.1 C 57 L 20 140/93 96 Room Air 01/12/23 08:07 36.9 C 65 20 163/91 H 96 Room Air 01/12/23 08:04 66 01/12/23 04:19 37.1 C 64 21 158/87 H 95 Room Air Laboratory Results CBC, BMP, Coags, D-dimer, fibrinogen,LFTs, Mag, phos reviewed PG Care Time/CCT Total # of Minutes Spent Total Time Spent with Patient: Total time spent is greater than 50% in coordination of care (as documented) at patient's floor/unit and/or counseling patient: Coding Level of Care Code 62548 SUB INP/OBS CARE 3/50MIN Diagnoses Acute GI bleeding K92.2 Electrolyte abnormality E87.8 Thrombocytopenia D69.6 Benign essential hypertension I10 Aspiration pneumonia J69.0 Atrial fibrillation, permanent I48.2 COPD (chronic obstructive pulmonary disease) J44.9 BPH with obstruction/lower urinary tract symptoms N40.1; N13.8 Hyperlipidemia E78.5 Hyperlipidemia type: unspecified Hypothyroid E03.9 Hypothyroidism type: unspecified Neuropathy G62.9 B12 deficiency E53.8 (9) Hyperlipidemia Hyperlipidemia type: unspecified Qualified Code(s): E78.5 - Hyperlipidemia, unspecified (10) Hypothyroid Hypothyroidism type: unspecified Qualified Code(s): E03.9 - Hypothyroidism, unspecified
[2023-01-12] MEDS: AMITRIPTYLINE HCL 25 MG TAB PO SCH (20:38)
[2023-01-13] MEDS: OCTREOTIDE ACETATE 500 MCG in DEXTROSE 5% 100 ML IV SCH ×2 (02:44→12:27)
[2023-01-13] MEDS: PANTOprazole 40 MG in DEXTROSE 5% 100 ML IV SCH ×3 (02:44→11:15)
[2023-01-13] MEDS: AMPICILLIN/SULBACTAM SOD 3,000 MG in 0.9 % SODIUM CHLORIDE 100 ML IV SCH ×3 (06:03→18:23)
[2023-01-13] MEDS: LEVOTHYROXINE SODIUM 25 MCG TABLET PO SCH (06:03)
[2023-01-13 06:51] LABS: Hematocrit (blood only) 29.9 % (42.0-52.0); Hemoglobin 10.1 g/dl (14.0-18.0); Mean Corpuscular Hgb Conc 33.8 g/dL (32.0-36.0); Mean Corpuscular Volume 91.7 fL (80.0-100.0); Mean Platelet Volume 10.6 fL (9.4-12.4); Platelet Count 162 K/uL (130-400); RDW Coefficient of Variation 13.3 % (11.5-14.5); RDW Standard Deviation 44.7 fL (36.4-46.3); Red Blood Count 3.26 M/uL (4.70-6.10); White Blood Count 7.44 K/ul (4.8-10.8)
[2023-01-13 07:09] LABS: BUN Creatinine Ratio 9.8 (10-20); Calcium 7.7 mg/dl (8.6-10.3); Creatinine Clr Calc Pharmacy 71.2 ml/min; Est GFR (African American) 85.8 ml/min; Magnesium 1.8 mg/dl (1.7-2.4); Potassium 3.5 mmol/L (3.5-5.1)
[2023-01-13 07:13] LABS: Basophils # (auto) 0.02 K/uL (0-0.2); Basophils % (auto) 0.3 %; Eosinophils # (auto) 0.41 K/uL (0-0.50); Eosinophils % (auto) 5.5 %; Immature Granulocytes # (auto) 0.03 K/uL (0.01-0.20); Immature Granulocytes % (auto) 0.4 %; Lymphocytes # (auto) 2.05 K/uL (1.2-3.4); Lymphocytes % (auto) 27.6 %; Monocytes # (auto) 0.75 K/uL (0.11-0.59); Monocytes % (auto) 10.1 %; Neutrophils # (auto) 4.18 K/uL (1.40-6.50); Neutrophils % (auto) 56.1 %
[2023-01-13] MEDS ORDERED: POTASSIUM CHLORIDE CRTAB 20 MEQ TABCR PO STA (07:57)
[2023-01-13] MEDS ORDERED: MAGNESIUM SULFATE / D5W 1 GM/100 ML BAG IV ONE (07:57)
[2023-01-13] MEDS: TAMSULOSIN HCL 0.4 MG CAP PO SCH (08:21)
[2023-01-13] MEDS: ATORVASTATIN 10 MG TAB PO SCH (08:21)
[2023-01-13] MEDS: PROPRANOLOL HCL 10 MG TAB PO SCH ×2 (08:21→20:18)
[2023-01-13] MEDS: GABAPENTIN 600 MG TAB PO SCH ×2 (08:21→20:19)
[2023-01-13] MEDS: guaiFENesin/DEXTROM SYRUP 100MG/10MG 5ML UDC PO PRN (08:25)
--- NOTE | 2023-01-13 16:34 | Hospitalist Progress Note ---
Date of Service January 13, 2023 Assessment & Plan (1) Acute GI bleeding: Plan: 87 y/o M w/ PmHx permanent A. fib on Eliquis, hypothyroid, BPH, Hypertension, COPD, restless leg syndrome, B12 deficiency, neuropathy, HLD, admitted for acute GI bleed. Here with acute blood loss anemia-hemoglobin 14.2 on admission and then down to 9.3 within first 24 hours Found to have large amounts of fresh blood in the stomach and duodenum on emergent EGD on 01/09. Found to have Merlyn-Majano tear in stomach which was clipped and injected with epinephrine Transferred to ICU after EGD for ongoing hematemesis after EGD. Was given PCC on 01/09 to reverse the effect of his apixaban and apixaban has been held CT abdomen/pelvis performed on 01/09 shows possible small bowel enteritis versus underdistention Transfused 1 unit PRBCs on 01/09 and hemoglobin hasmukh to 10.5 Had large amount of melena on 01/09 but none since then and no further hematemesis Remains HD stable and downgraded out of ICU on 01/10 Hemoglobin down further to 9.1 on 01/11 and was taken for repeat EGD EGD on 01/11 again showed Merlyn-Majano tear with active bleeding and previous clips appear to have fallen off-clipped again with 2 clips and epinephrine injected No further bleeding since then, hgb up to 10 now and stable Tolerating full liquids diet Appreciate GI consultation and management -has been on Protonix drip, octreotide drip for over 72 hours--> convert to Protonix 40mg po bid and dc octreotide gtt -Advance diet as tolerated-go to low fiber now -Continue holding apixaban-d/w his Toe Former, Dr. Briones, who recommended holding Eliquis for at least 1 month given the life threatening bleed -follow CBC again in the morning -Transfuse blood if hemodynamically unstable or hemoglobin trending down less than 7-8 (2) Electrolyte abnormality: Plan: hypokalemia improved but with Afib, replace with po KCl 20 meq to get K closer to 4.0 give 1 gram IV mag sulfate to get closer to 2.0 Follow BMP, magnesium in the morning (3) Thrombocytopenia: Plan: Platelets were mildly low since admission in the low 100s-110s but are low normal at baseline likely secondary to his B12 deficiency Likely secondary to consumption? Now improved up to 162 Fibrinogen elevated, D-dimer high, PT/PTT normal, no evidence of DIC Follow CBC again in the morning (4) Benign essential hypertension: Plan: Blood pressures are becoming more elevated continue home propranolol but continue holding bumetanide-will restart tomorrow Monitor blood pressures (5) Aspiration pneumonia: Plan: With hypoxia, tachypnea, WBC count 11, and fever on 01/09 CXR with right sided infiltrates PULM does not think he has PNA but recommends treating with Unasyn x 5 days-last day of treatment will be 01/14 BCxs-remain NGTD SPutum Cx with light normal kasey Still with some mild cough, lungs now clear, remains off O2 I-received Zosyn x 1 dose on 01/09 and now on Unasyn since 01/10 (6) Atrial fibrillation, permanent: Plan: Remains rate controlled Continue holding home Eliquis for GI bleed x 1 month as per recommendation from his Toe Former Dr. Briones. -continue home propranolol as blood pressures have been elevated -Monitor on telemetry (7) COPD (chronic obstructive pulmonary disease): Plan: Was requiring oxygen on 01/09 after vomiting and aspiration PNA-now on room air No wheezing Could be related to aspiration given chest x-ray findings of developing infiltrate on the right side Not on maintenance inhalers at home (8) BPH with obstruction/lower urinary tract symptoms: Plan: -Continue home tamsulosin. -Difficulty voiding on and before arrival. -Inserted painter for voiding troubles-continue for now and trial of void -now passed TOV on 01/13 after Painter removed (9) Hyperlipidemia: Plan: Continue home atorvastatin (10) Hypothyroid: Plan: TSH normal in 05/2022 Continue home levothyroxine (11) Neuropathy: Plan: -Continue home amitriptyline, gabapentin. (12) B12 deficiency: Plan: Receives once monthly B12 injections Plan DVT prophylaxis-SCDs Disposition-continued stay on PCU, slowly improving, PT/OT consults placed and needs rehab-referral placed to [facility]. May be medically stable for discharge to rehab tomorrow Admission and Anticipated Discharge Date Admission Date: January 08, 2023 Anticipated date of discharge: 01/14/23 Subjective Pt had a good day, worked with PT, walked around the room. Had Painter remove and voiding on own. Had a brown BM as per RN. No nausea. Tolerating full liquids diet. Still with mild cough Tele with Afib, rates controlled Physical Exam Constitutional: WD/WN, vitals as above Neck: trachea midline, no thyromegaly Respiratory: normal respiratory effort; no cough and not tachypneic Auscultation: lungs clear to auscultation bilaterally Cardiovascular: Rate/Rhythm: regular rate and + irregularly irregular Heart Sounds: no murmur Extremities: no edema Chest (Breasts): Chest: normal inspection of chest Gastrointestinal (Abdomen): normal bowel sounds, soft, nontender, no hepatosplenomegaly Musculoskeletal: Extremities: extremities normal to inspection; no cyanosis and no clubbing Skin: no rashes, warm and dry Neurologic: moves all extremities and awake; no focal motor deficits Psychiatric: A+Ox3, euthymic affect Lymphatic: no lymphedema Results & Data Results & Data Vital Signs (Past 12 Hours) Vital Signs Temp Pulse Pulse Resp BP Pulse Ox O2 Del Method 01/13/23 16:00 36.6 C 67 20 155/95 H 97 Room Air 01/13/23 12:05 36.5 C 62 22 142/88 H 95 Room Air 01/13/23 08:00 71 01/13/23 08:03 36.5 C 78 20 171/94 H 95 Room Air Laboratory Results CBC,BMP, magnesium reviewed PG Care Time/CCT Total # of Minutes Spent Total Time Spent with Patient: Total time spent is greater than 50% in coordination of care (as documented) at patient's floor/unit and/or counseling patient: Coding Level of Care Code 81553 SUB INP/OBS CARE 3/50MIN Diagnoses Acute GI bleeding K92.2 Electrolyte abnormality E87.8 Thrombocytopenia D69.6 Benign essential hypertension I10 Aspiration pneumonia J69.0 Atrial fibrillation, permanent I48.2 COPD (chronic obstructive pulmonary disease) J44.9 BPH with obstruction/lower urinary tract symptoms N40.1; N13.8 Hyperlipidemia E78.5 Hyperlipidemia type: unspecified Hypothyroid E03.9 Hypothyroidism type: unspecified Neuropathy G62.9 B12 deficiency E53.8 (9) Hyperlipidemia Hyperlipidemia type: unspecified Qualified Code(s): E78.5 - Hyperlipidemia, unspecified (10) Hypothyroid Hypothyroidism type: unspecified Qualified Code(s): E03.9 - Hypothyroidism, unspecified
[2023-01-13] MEDS: PANTOprazole 40 MG TAB PO SCH (20:18)
[2023-01-13] MEDS: AMITRIPTYLINE HCL 25 MG TAB PO SCH (20:18)
[2023-01-14] MEDS: AMPICILLIN/SULBACTAM SOD 3,000 MG in 0.9 % SODIUM CHLORIDE 100 ML IV SCH ×4 (00:05→17:22)
[2023-01-14] MEDS: LEVOTHYROXINE SODIUM 25 MCG TABLET PO SCH (06:30)
[2023-01-14] MEDS: ATORVASTATIN 10 MG TAB PO SCH (08:20)
[2023-01-14] MEDS: PANTOprazole 40 MG TAB PO SCH ×2 (08:20→21:43)
[2023-01-14] MEDS: PROPRANOLOL HCL 10 MG TAB PO SCH ×2 (08:20→21:43)
[2023-01-14] MEDS: TAMSULOSIN HCL 0.4 MG CAP PO SCH (08:20)
[2023-01-14] MEDS: GABAPENTIN 600 MG TAB PO SCH ×2 (08:20→21:43)
[2023-01-14 08:40] LABS: Basophils # (auto) 0.04 K/uL (0-0.2); Basophils % (auto) 0.5 %; Eosinophils # (auto) 0.37 K/uL (0-0.50); Eosinophils % (auto) 4.4 %; Hematocrit (blood only) 33.7 % (42.0-52.0); Hemoglobin 11.2 g/dl (14.0-18.0); Immature Granulocytes # (auto) 0.06 K/uL (0.01-0.20); Immature Granulocytes % (auto) 0.7 %; Lymphocytes # (auto) 1.81 K/uL (1.2-3.4); Lymphocytes % (auto) 21.3 %; Mean Corpuscular Hemoglobin 30.8 pg (25.0-34.0); Mean Corpuscular Hgb Conc 33.2 g/dL (32.0-36.0); Mean Corpuscular Volume 92.6 fL (80.0-100.0); Mean Platelet Volume 10.6 fL (9.4-12.4); Monocytes # (auto) 1.03 K/uL (0.11-0.59); Monocytes % (auto) 12.1 %; Neutrophils # (auto) 5.17 K/uL (1.40-6.50); Platelet Count 230 K/uL (130-400); RDW Coefficient of Variation 13.3 % (11.5-14.5); RDW Standard Deviation 45.7 fL (36.4-46.3); Red Blood Count 3.64 M/uL (4.70-6.10); White Blood Count 8.48 K/ul (4.8-10.8)
[2023-01-14 09:04] LABS: BUN Creatinine Ratio 9.5 (10-20); Calcium 8.1 mg/dl (8.6-10.3); Creatinine Clr Calc Pharmacy 69.5 ml/min; Est GFR (African American) 82.5 ml/min; Est GFR (Non-African American) 71.2 ml/min; Magnesium 1.9 mg/dl (1.7-2.4); Potassium 3.7 mmol/L (3.5-5.1)
[2023-01-14] MEDS ORDERED: MAGNESIUM SULFATE / D5W 1 GM/100 ML BAG IV ONE (09:30)
[2023-01-14] MEDS: POTASSIUM CHLORIDE CRTAB 20 MEQ TABCR PO STA ×2 (10:26→11:45)
[2023-01-14] MEDS ORDERED: Nursing to Pharmacy Communication SCH (10:45)
[2023-01-14] MEDS ORDERED: POTASSIUM CHLORIDE 10 MEQ TABCR PO SCH (11:00)
--- NOTE | 2023-01-14 18:25 | Hospitalist Progress Note ---
Date of Service January 14, 2023 Assessment & Plan (1) Acute GI bleeding: Plan: 87 y/o M w/ PmHx permanent A. fib on Eliquis, hypothyroid, BPH, Hypertension, COPD, restless leg syndrome, B12 deficiency, neuropathy, HLD, admitted for acute GI bleed. Here with acute blood loss anemia-hemoglobin 14.2 on admission and then down to 9.3 within first 24 hours Found to have large amounts of fresh blood in the stomach and duodenum on emergent EGD on 01/09. Found to have Merlyn-Majano tear in stomach which was clipped and injected with epinephrine Transferred to ICU after EGD for ongoing hematemesis after EGD. Was given PCC on 01/09 to reverse the effect of his apixaban and apixaban has been held CT abdomen/pelvis performed on 01/09 shows possible small bowel enteritis versus underdistention Transfused 1 unit PRBCs on 01/09 and hemoglobin hasmukh to 10.5 Had large amount of melena on 01/09 which was likely old blood, but none since then and no further hematemesis Remains HD stable and downgraded out of ICU on 01/10 Hemoglobin down further to 9.1 on 01/11 and was taken for repeat EGD EGD on 01/11 again showed Merlyn-Majano tear with active bleeding and previous clips appear to have fallen off-clipped again with 2 clips and epinephrine injec tanner No further bleeding since then, hgb continues to trend upward to 11 today Tolerating low fiber diet Appreciate GI consultation and management Was on Protonix drip, octreotide drip for over 72 hours--> converted to Protonix 40mg po bid and dcd octreotide gtt -Continue holding apixaban-d/w his [employer], Dr. Briones, who recommended holding Eliquis for at least 1 month given the life threatening [id number] with cardiology in 1 month -follow CBC again in the morning -Transfuse blood if hemodynamically unstable or hemoglobin trending down less than 7-8, but seems less likely this will be necessary (2) Electrolyte abnormality: Plan: hypokalemia improved but with Afib, replace with po KCl 20 meq to get K closer t o 4.0 give 1 gram IV mag sulfate to get closer to 2.0 Follow BMP, magnesium in the morning (3) Thrombocytopenia: Plan: Platelets were mildly low since admission in the low 100s-110s but are low normal at baseline likely secondary to his B12 deficiency Likely secondary to consumption? Now normal Fibrinogen elevated, D-dimer high, PT/PTT normal, no evidence of DIC Follow CBC again in the morning (4) Benign essential hypertension: Plan: Blood pressures elevated but improved now continue home propranolol Is on bumetanide as needed at home-none needed at this time Monitor blood pressures (5) Aspiration pneumonia: Plan: With hypoxia, tachypnea, WBC count 11, and fever on 01/09 CXR with right sided infiltrates PULM does not think he has PNA but recommends treating with Unasyn x 5 days-last day of treatment will be 01/14 BCxs-remain NGTD SPutum Cx with light normal kasey Still with some mild cough, lungs now clear, remains off O2 I-received Zosyn x 1 dose on 01/09 and now on Unasyn since 01/10-finishing treatment today (6) Atrial fibrillation, permanent: Plan: Remains rate controlled Continue holding home Eliquis for GI bleed x 1 month as per recommendation from his [employer] Dr. Briones. -continue home propranolol as blood pressures have been elevated -Monitor on telemetry (7) COPD (chronic obstructive pulmonary disease): Plan: Was requiring oxygen on 01/09 after vomiting and aspiration PNA-now on room air No wheezing Could be related to aspiration given chest x-ray findings of developing infiltrate on the right side Not on maintenance inhalers at home (8) BPH with obstruction/lower urinary tract symptoms: Plan: -Continue home tamsulosin. -Difficulty voiding on and before arrival. -Inserted painter for voiding troubles-continue for now and trial of void -now passed TOV on 01/13 after Painter removed (9) Hyperlipidemia: Plan: Continue home atorvastatin (10) Hypothyroid: Plan: TSH normal in 05/2022 Continue home levothyroxine (11) Neuropathy: Plan: -Continue home amitriptyline, gabapentin. (12) B12 deficiency: Plan: Receives once monthly B12 injections Plan DVT prophylaxis-SCDs Disposition-continued stay on PCU, much improved, PT/OT consults placed and needs rehab-referral placed to [facility]. Medically stable for discharge at this time-informed case management Discussed his care with his on the phone on 01/14 Admission and Anticipated Discharge Date Admission Date: January 08, 2023 Subjective Patient reports feeling better. No abdominal pains or nausea. No bowel movement today. He is tolerating low fiber diet but not able to eat much as he feels this stomach is shrunk. Cough is present but improving Telemetry with atrial fibrillation and flutter with rates in the 60s to 70s Physical Exam Constitutional: WD/WN, vitals as above Neck: trachea midline, no thyromegaly Respiratory: normal respiratory effort; no cough and not tachypneic Auscultation: lungs clear to auscultation bilaterally Cardiovascular: Rate/Rhythm: regular rate and + irregularly irregular Heart Sounds: no murmur Extremities: no edema Chest (Breasts): Chest: normal inspection of chest Gastrointestinal (Abdomen): normal bowel sounds, soft, nontender, no hepatosplenomegaly Musculoskeletal: Extremities: extremities normal to inspection; no cyanosis and no clubbing Skin: no rashes, warm and dry Neurologic: moves all extremities and awake; no focal motor deficits Psychiatric: A+Ox3, euthymic affect Lymphatic: no lymphedema Results & Data Results & Data Vital Signs (Past 12 Hours) Vital Signs Temp Pulse Pulse Resp BP Pulse Ox O2 Del Method 01/14/23 15:25 37.3 C 69 24 154/86 H 95 Room Air 01/14/23 11:38 36.7 C 63 19 166/97 H 95 Room Air 01/14/23 08:00 69 01/14/23 07:56 37.2 C 69 19 166/106 H 95 Room Air Laboratory Results CBC, BMP, magnesium level reviewed PG Care Time/CCT Total # of Minutes Spent Total Time Spent with Patient: Total time spent is greater than 50% in coordination of care (as documented) at patient's floor/unit and/or counseling patient: Coding Level of Care Code 26568 SUB INP/OBS CARE 2/35MIN Diagnoses Acute GI bleeding K92.2 Electrolyte abnormality E87.8 Thrombocytopenia D69.6 Benign essential hypertension I10 Aspiration pneumonia J69.0 Atrial fibrillation, permanent I48.2 COPD (chronic obstructive pulmonary disease) J44.9 BPH with obstruction/lower urinary tract symptoms N40.1; N13.8 Hyperlipidemia E78.5 Hyperlipidemia type: unspecified Hypothyroid E03.9 Hypothyroidism type: unspecified Neuropathy G62.9 B12 deficiency E53.8 (9) Hyperlipidemia Hyperlipidemia type: unspecified Qualified Code(s): E78.5 - Hyperlipidemia, unspecified (10) Hypothyroid Hypothyroidism type: unspecified Qualified Code(s): E03.9 - Hypothyroidism, unspecified
[2023-01-14] MEDS: AMITRIPTYLINE HCL 25 MG TAB PO SCH (21:43)
[2023-01-15 07:41] LABS: Basophils # (auto) 0.03 K/uL (0-0.2); Basophils % (auto) 0.3 %; Eosinophils # (auto) 0.27 K/uL (0-0.50); Eosinophils % (auto) 2.9 %; Hematocrit (blood only) 32.5 % (42.0-52.0); Immature Granulocytes # (auto) 0.09 K/uL (0.01-0.20); Lymphocytes # (auto) 1.53 K/uL (1.2-3.4); Lymphocytes % (auto) 16.3 %; Mean Corpuscular Hemoglobin 30.6 pg (25.0-34.0); Mean Corpuscular Hgb Conc 33.8 g/dL (32.0-36.0); Mean Corpuscular Volume 90.5 fL (80.0-100.0); Mean Platelet Volume 10.4 fL (9.4-12.4); Monocytes % (auto) 11.7 %; Neutrophils # (auto) 6.38 K/uL (1.40-6.50); Neutrophils % (auto) 67.8 %; Platelet Count 279 K/uL (130-400); RDW Coefficient of Variation 12.9 % (11.5-14.5); Red Blood Count 3.59 M/uL (4.70-6.10)
[2023-01-15] MEDS: LEVOTHYROXINE SODIUM 25 MCG TABLET PO SCH (07:42)
[2023-01-15 08:06] LABS: BUN Creatinine Ratio 11.1 (10-20); Calcium 7.7 mg/dl (8.6-10.3); Creatinine Clr Calc Pharmacy 73.3 ml/min; Est GFR (African American) 88.1 ml/min; Potassium 4.1 mmol/L (3.5-5.1)
[2023-01-15] MEDS: PROPRANOLOL HCL 10 MG TAB PO SCH ×2 (10:06→20:36)
[2023-01-15] MEDS: ATORVASTATIN 10 MG TAB PO SCH (10:06)
[2023-01-15] MEDS: BUMETANIDE 1 MG TAB PO SCH (10:06)
[2023-01-15] MEDS: GABAPENTIN 600 MG TAB PO SCH ×2 (10:06→20:36)
[2023-01-15] MEDS: TAMSULOSIN HCL 0.4 MG CAP PO SCH (10:06)
[2023-01-15] MEDS: PANTOprazole 40 MG TAB PO SCH ×2 (10:06→20:36)
--- NOTE | 2023-01-15 16:24 | Hospitalist Progress Note ---
Date of Service January 15, 2023 Assessment & Plan (1) Acute GI bleeding: Plan: 87 y/o M w/ PmHx permanent A. fib on Eliquis, hypothyroid, BPH, Hypertension, COPD, restless leg syndrome, B12 deficiency, neuropathy, HLD, admitted for acute GI bleed. Here with acute blood loss anemia-hemoglobin 14.2 on admission and then down to 9.3 within first 24 hours Found to have large amount of fresh blood in the stomach and duodenum on emergent EGD on 01/09-with Merlyn-Majano tear in stomach which was clipped and injected with epinephrine Transferred to ICU after EGD for ongoing hematemesis after EGD. -Was given PCC on 01/09 to reverse the effect of his apixaban and apixaban has been held CT abdomen/pelvis performed on 01/09 shows possible small bowel enteritis versus underdistention Transfused 1 unit PRBCs on 01/09 and hemoglobin hasmukh to 10.5 Had large amount of melena on 01/09 which was likely old blood, but none since then and no further hematemesis--> downgraded out of ICU on 01/10 Hemoglobin down further to 9.1 on 01/11 and was taken for repeat EGD EGD on 01/11 again showed Merlyn-Majano tear with active bleeding and previous clips appear to have fallen off-clipped again with 2 clips and epinephrine injected No further bleeding since then, hgb continues to trend upward and remains stable at 11 today Tolerating low fiber diet, having brown BMs Appreciate GI consultation and management Was on Protonix drip, octreotide drip for over 72 hours--> converted to Protonix 40mg po bid and dcd octreotide gtt -Continue holding apixaban-d/w his Nail Professional, Dr. Briones, who recommended holding Eliquis for at least 1 month given the life threatening [id number] with cardiology in 1 month -follow CBC again in the morning -Transfuse blood if hemodynamically unstable or hemoglobin trending down less than 7-8, but seems less likely this will be necessary (2) Thrombocytopenia: Plan: Platelets were mildly low since admission in the low 100s-110s but are low norm al at baseline likely secondary to his B12 deficiency Likely secondary to consumption? Now normal Fibrinogen elevated, D-dimer high, PT/PTT normal, no evidence of DIC Follow CBC again in the morning (3) Benign essential hypertension: Plan: Blood pressures elevated today and now now normalized with restarting home meds continue home propranolol restarted bumetanide 0.5mg daily Monitor blood pressures FOllow BMP in AM (4) Aspiration pneumonia: Plan: With hypoxia, tachypnea, WBC count 11, and fever on 01/09 CXR with right sided infiltrates treated with Unasyn x 5 days as per PULM recommendations BCxs-negative SPutum Cx with light normal kasey Still with some mild cough, lungs now clear, remains off O2 (5) Atrial fibrillation, permanent: Plan: Remains rate controlled Afib and sometimes flutter Continue holding home Eliquis for GI bleed x 1 month as per recommendation from his Nail Professional Dr. Briones. -continue home propranolol -Monitor on telemetry (6) COPD (chronic obstructive pulmonary disease): Plan: Was requiring oxygen on 01/09 after vomiting and aspiration PNA-now on room air No wheezing Not on maintenance inhalers at home (7) BPH with obstruction/lower urinary tract symptoms: Plan: -Continue home tamsulosin. -Difficulty voiding before arrival and had High placed on admission Now High out and passed trial of void (8) Hyperlipidemia: Plan: Continue home atorvastatin (9) Hypothyroid: Plan: TSH normal in 05/2022 Continue home levothyroxine (10) Neuropathy: Plan: -Continue home amitriptyline, gabapentin. (11) B12 deficiency: Plan: Receives once monthly B12 injections Plan DVT prophylaxis-SCDs Disposition-continued stay, much improved, PT/OT consults placed and needs rehab-referral placed to [facility]. Medically stable for discharge at this time-awaiting insurance auth approval as of 01/14 Discussed his care with his on the phone on 01/14 Admission and Anticipated Discharge Date Admission Date: January 08, 2023 Subjective Feeling well, no complaints. No melena. Had a brown BM today as per RN. Still some mild cough Tele with rate controlled aflutter. Physical Exam Constitutional: WD/WN, vitals as above Neck: trachea midline, no thyromegaly Respiratory: normal respiratory effort; no cough and not tachypneic Auscultation: lungs clear to auscultation bilaterally Cardiovascular: Rate/Rhythm: regular rate and + irregularly irregular Heart Sounds: no murmur Extremities: no edema Chest (Breasts): Chest: normal inspection of chest Gastrointestinal (Abdomen): normal bowel sounds, soft, nontender, no hepatosplenomegaly Musculoskeletal: Extremities: extremities normal to inspection; no cyanosis and no clubbing Skin: no rashes, warm and dry Neurologic: moves all extremities and awake; no focal motor deficits Psychiatric: A+Ox3, euthymic affect Lymphatic: no lymphedema Results & Data Results & Data Vital Signs (Past 12 Hours) Vital Signs Temp Pulse Pulse Resp BP Pulse Ox O2 Del Method 01/15/23 15:38 67 01/15/23 08:00 84 01/15/23 11:51 36.8 C 77 18 142/90 H 93 Room Air 01/15/23 08:17 37.1 C 73 18 139/99 93 Room Air Laboratory Results CBC, BMP, magnesium reviewed PG Care Time/CCT Total # of Minutes Spent Total Time Spent with Patient: Total time spent is greater than 50% in coordination of care (as documented) at patient's floor/unit and/or counseling patient: Coding Level of Care Code 02157 SUB INP/OBS CARE 2/35MIN Diagnoses Acute GI bleeding K92.2 Thrombocytopenia D69.6 Benign essential hypertension I10 Aspiration pneumonia J69.0 Atrial fibrillation, permanent I48.2 COPD (chronic obstructive pulmonary disease) J44.9 BPH with obstruction/lower urinary tract symptoms N40.1; N13.8 Hyperlipidemia E78.5 Hyperlipidemia type: unspecified Hypothyroid E03.9 Hypothyroidism type: unspecified Neuropathy G62.9 B12 deficiency E53.8 (8) Hyperlipidemia Hyperlipidemia type: unspecified Qualified Code(s): E78.5 - Hyperlipidemia, unspecified (9) Hypothyroid Hypothyroidism type: unspecified Qualified Code(s): E03.9 - Hypothyroidism, unspecified
[2023-01-15] MEDS: AMITRIPTYLINE HCL 25 MG TAB PO SCH (20:36)
[2023-01-16] MEDS: LEVOTHYROXINE SODIUM 25 MCG TABLET PO SCH (05:13)
[2023-01-16 06:42] LABS: Basophils # (auto) 0.02 K/uL (0-0.2); Basophils % (auto) 0.2 %; Eosinophils # (auto) 0.32 K/uL (0-0.50); Eosinophils % (auto) 3.4 %; Hematocrit (blood only) 32.6 % (42.0-52.0); Hemoglobin 10.9 g/dl (14.0-18.0); Immature Granulocytes # (auto) 0.09 K/uL (0.01-0.20); Lymphocytes # (auto) 1.53 K/uL (1.2-3.4); Lymphocytes % (auto) 16.3 %; Mean Corpuscular Hemoglobin 30.7 pg (25.0-34.0); Mean Corpuscular Hgb Conc 33.4 g/dL (32.0-36.0); Mean Corpuscular Volume 91.8 fL (80.0-100.0); Mean Platelet Volume 10.3 fL (9.4-12.4); Monocytes # (auto) 1.31 K/uL (0.11-0.59); Monocytes % (auto) 13.9 %; Neutrophils # (auto) 6.13 K/uL (1.40-6.50); Neutrophils % (auto) 65.2 %; Platelet Count 311 K/uL (130-400); RDW Coefficient of Variation 13.1 % (11.5-14.5); Red Blood Count 3.55 M/uL (4.70-6.10)
[2023-01-16 07:05] LABS: BUN Creatinine Ratio 12.8 (10-20); Calcium 7.8 mg/dl (8.6-10.3); Creatinine Clr Calc Pharmacy 60.6 ml/min; Est GFR (African American) 69.9 ml/min; Est GFR (Non-African American) 60.3 ml/min; Potassium 3.9 mmol/L (3.5-5.1)
[2023-01-16] MEDS: BUMETANIDE 1 MG TAB PO SCH (08:29)
[2023-01-16] MEDS: TAMSULOSIN HCL 0.4 MG CAP PO SCH (08:29)
[2023-01-16] MEDS: GABAPENTIN 600 MG TAB PO SCH ×2 (08:29→20:46)
[2023-01-16] MEDS: PANTOprazole 40 MG TAB PO SCH ×2 (08:29→20:46)
[2023-01-16] MEDS: PROPRANOLOL HCL 10 MG TAB PO SCH ×2 (08:29→20:46)
[2023-01-16] MEDS: ATORVASTATIN 10 MG TAB PO SCH (08:29)
--- NOTE | 2023-01-16 14:22 | Hospitalist Progress Note ---
Date of Service January 16, 2023 Assessment & Plan (1) Acute GI bleeding: Plan: Found to have large amount of fresh blood in the stomach and duodenum on emergent EGD on 01/09-with Merlyn-Majano tear in stomach which was clipped and injected with epinephrine Transferred to ICU after EGD for ongoing hematemesis after EGD. Was given PCC on 01/09 to reverse the effect of his apixaban and apixaban has been held. Hemoglobin down further to 9.1 on 01/11 and was taken for repeat EGD 01/11 which again showed Merlyn-Majano tear with active bleeding and previous clips appear to have fallen off-clipped again with 2 clips and epinephrine injected. He is now on Protonix and Carafate suspension has been added. Hemoglobin is now stable. Diet has been advanced. Appreciate gastroenterology consultation and recommendations. He is now off the octreotide and Protonix drips. Apixaban will remain on hold for approximately 1 month per cardiology recommendations. (2) Thrombocytopenia: Plan: Platelets were mildly low since admission in the low 100s-110s but are low normal at baseline likely secondary to his B12 deficiency and consumption. Serial labs (3) Benign essential hypertension: Plan: Controlled with propranolol and bumetanide. (4) Aspiration pneumonia: Plan: CXR with right sided infiltrates. Treated with Unasyn x 5 days as per PULM recommendations. BCxs-negative (5) Atrial fibrillation, permanent: Plan: Remains rate controlled Afib and sometimes flutter. Continue holding home Eliquis for GI bleed x 1 month as per recommendation from his Account Coordinator Dr. Briones. Continue propranolol . Telemetry (6) COPD (chronic obstructive pulmonary disease): Plan: Was requiring oxygen on 01/09 after vomiting and aspiration PNA-now on room air. Not on maintenance inhalers at home (7) BPH with obstruction/lower urinary tract symptoms: Plan: Continue home tamsulosin. Difficulty voiding before arrival and had High placed on admission. Now High out and passed trial of void (8) Hyperlipidemia: Plan: Stable. Continue atorvastatin (9) Hypothyroid: Plan: TSH normal in 05/2022. Stable. Continue levothyroxine (10) Neuropathy: Plan: Stable. Continue amitriptyline, gabapentin. (11) B12 deficiency: Plan: Receives monthly B12 injections (12) Acute blood loss anemia: Plan: Received blood transfusion this admission. Hemoglobin now stable at 10.9. Serial labs Plan DVT prophylaxis-SCDs Disposition-anticipate discharge to [facility] when bed available Admission and Anticipated Discharge Date Admission Date: January 08, 2023 Subjective Alert and oriented. No acute complaints. Hemoglobin stable at 10.9. Carafate suspension added to Protonix. Review of Systems Review of Systems: Constitutional-no fever or chills ENT-no blurred vision, no double vision, no epistaxis, no sore throat Respiratory-no cough, no wheezing, no shortness of breath Cardiac-no palpitations, no chest pain, no syncope GI-no nausea, vomiting, diarrhea, melena, hematochezia -no urinary retention, no urinary incontinence, no dysuria, no hematuria Musculoskeletal-no joint pain, no muscle tenderness Skin-no bruising, no rashes, no pruritus Neuro-no isolated weakness, no paresthesia, no weakness Psych-no depression, no anxiety Physical Exam Physical Exam: General-alert and oriented x3, no fevers, no chills HEENT-head atraumatic and normocephalic, pupils equal and reactive to light, extraocular muscles intact Neck-no lymphadenopathy or thyromegaly, trachea midline Chest-clear to auscultation percussion. No rales wheezing or rhonchi Cardiac-regular rate and rhythm, normal S1 and S2 Abdomen-normal bowel sounds, nontender, no hepatosplenomegaly Extremities-no cyanosis, clubbing, or edema Neuro-cranial nerves II through XII intact, motor and sensory function within normal limits, strength symmetrical , no focal deficits Psych-normal affect, normal mood Results & Data Results & Data Vital Signs (Past 12 Hours) Vital Signs Temp Pulse Resp BP Pulse Ox O2 Del Method 01/16/23 11:51 36.8 C 87 19 106/66 96 Room Air 01/16/23 07:59 36.4 C L 81 19 134/78 95 Room Air 01/16/23 02:38 36.6 C 78 18 135/93 95 Room Air Laboratory Results 01/16/23 06:06 01/16/23 06:06 PG Care Time/CCT Total # of Minutes Spent Total Time Spent with Patient: Total time spent is greater than 50% in coordination of care (as documented) at patient's floor/unit and/or counseling patient: Coding Level of Care Code 79373 SUB INP/OBS CARE 3/50MIN Diagnoses Acute GI bleeding K92.2 Thrombocytopenia D69.6 Benign essential hypertension I10 Aspiration pneumonia J69.0 Atrial fibrillation, permanent I48.2 COPD (chronic obstructive pulmonary disease) J44.9 BPH with obstruction/lower urinary tract symptoms N40.1; N13.8 Hyperlipidemia E78.5 Hyperlipidemia type: unspecified Hypothyroid E03.9 Hypothyroidism type: unspecified Neuropathy G62.9 B12 deficiency E53.8 Acute blood loss anemia D62 (8) Hyperlipidemia Hyperlipidemia type: unspecified Qualified Code(s): E78.5 - Hyperlipidemia, unspecified (9) Hypothyroid Hypothyroidism type: unspecified Qualified Code(s): E03.9 - Hypothyroidism, unspecified
[2023-01-16] MEDS: SUCRALFATE 1 GM/10 ML UDC PO SCH ×2 (16:02→20:47)
[2023-01-16] MEDS: AMITRIPTYLINE HCL 25 MG TAB PO SCH (20:45)
[2023-01-17] MEDS: LEVOTHYROXINE SODIUM 25 MCG TABLET PO SCH (05:56)
[2023-01-17 06:24] LABS: Basophils # (auto) 0.03 K/uL (0-0.2); Basophils % (auto) 0.4 %; Eosinophils # (auto) 0.28 K/uL (0-0.50); Eosinophils % (auto) 3.3 %; Hematocrit (blood only) 32.1 % (42.0-52.0); Hemoglobin 10.9 g/dl (14.0-18.0); Immature Granulocytes # (auto) 0.06 K/uL (0.01-0.20); Immature Granulocytes % (auto) 0.7 %; Lymphocytes # (auto) 2.27 K/uL (1.2-3.4); Lymphocytes % (auto) 26.8 %; Mean Corpuscular Hemoglobin 30.8 pg (25.0-34.0); Mean Corpuscular Volume 90.7 fL (80.0-100.0); Mean Platelet Volume 10.3 fL (9.4-12.4); Neutrophils # (auto) 4.72 K/uL (1.40-6.50); Neutrophils % (auto) 55.8 %; Platelet Count 365 K/uL (130-400); RDW Coefficient of Variation 13.1 % (11.5-14.5); RDW Standard Deviation 43.1 fL (36.4-46.3); Red Blood Count 3.54 M/uL (4.70-6.10); White Blood Count 8.46 K/ul (4.8-10.8)
[2023-01-17 06:51] LABS: BUN Creatinine Ratio 15.3 (10-20); Creatinine Clr Calc Pharmacy 59.5 ml/min; Est GFR (African American) 68.3 ml/min; Potassium 3.5 mmol/L (3.5-5.1)
[2023-01-17] MEDS: GABAPENTIN 600 MG TAB PO SCH (08:16)
[2023-01-17] MEDS: ATORVASTATIN 10 MG TAB PO SCH (08:16)
[2023-01-17] MEDS: BUMETANIDE 1 MG TAB PO SCH (08:16)
[2023-01-17] MEDS: PANTOprazole 40 MG TAB PO SCH (08:16)
[2023-01-17] MEDS: TAMSULOSIN HCL 0.4 MG CAP PO SCH (08:17)
[2023-01-17] MEDS: SUCRALFATE 1 GM/10 ML UDC PO SCH (08:17)
[2023-01-17] MEDS: PROPRANOLOL HCL 10 MG TAB PO SCH (08:17)
[2023-01-17] MEDS ORDERED: POTASSIUM CHLORIDE CRTAB 20 MEQ TABCR PO SCH (10:45)
--- NOTE | 2023-01-17 13:33 | Discharge Summary ---
Date of Service January 17, 2023 Admission HPI Per Admitting Provider Filiberto is an 87 year old male w/ PmHx permanent A. fib on Eliquis, hypothyroid, BPH, Hypertension, COPD, restless leg syndrome, B12 deficiency, neuropathy, HLD, depression/anxiety who comes in to the ED for coffee ground emesis and black tarry stools. Was in usual state of health living at home with up until 2 days ago when he developed nausea, vomiting, decreased appetite, lightheadedness and shortness of breath. His vomiting has had a brownish/reddish tint to coloration and his stools have been dark and tarry in appearance. He denies knowledge of any trigger for these symptoms. Denies fevers, chills, chest pain, dysuria. Last dose of Eliquis was this morning. Denies alcohol use, 2 doses ibuprofen yesterday. In the ED hemoglobin 14.2, PT 13.0, INR 1.2, T. Bili 1.4, positive Hemoccult. Given 40mg IV push pantoprazole, 1L NSS, 4mg zofran. Principal Diagnosis Upper GI bleed, acute blood loss anemia, Merlyn-Majano tear, suspected aspiration pneumonia Discharge Exam General-alert and oriented x3, no fevers, no chills HEENT-head atraumatic and normocephalic, pupils equal and reactive to light, extraocular muscles intact Neck-no lymphadenopathy or thyromegaly, trachea midline Chest-clear to auscultation percussion. No rales wheezing or rhonchi Cardiac-regular rate and rhythm, normal S1 and S2 Abdomen-normal bowel sounds, nontender, no hepatosplenomegaly Extremities-no cyanosis, clubbing, or edema Neuro-cranial nerves II through XII intact, motor and sensory function within normal limits, strength symmetrical , no focal deficits Psych-normal affect, normal mood Discharge Data Allergies Allergy/AdvReac Type Severity Reaction Status Date / Time COVID-19 vaccine, mRNA, AdvReac Severe Verified 07/06/22 12:51 [id number], [From Modern COVID-19 Booster([facility])] Consultations 01/08/23 20:40 ED Decision to Admit Stat 01/09/23 00:19 Consult Gastroenterology Routine 01/09/23 15:10 Consult Plastics Supervisor Routine Procedures Performed Operation Date: 01/11/23 18:30 Actual Procedures p EGD Hemostasis - Froylan Escobar Case, DO Ordered Studies 01/09/23 11:35 CT abd pelvis IV con only Stat Hospital Course (1) Acute GI bleeding: Found to have large amount of fresh blood in the stomach and duodenum on emergent EGD on 01/09-with Merlyn-Majano tear in stomach which was clipped and injected with epinephrine Transferred to ICU after EGD for ongoing hematemesis after EGD. Was given PCC on 01/09 to reverse the effect of his apixaban and apixaban has been held. Hemoglobin down further to 9.1 on 01/11 and was taken for repeat EGD 01/11 which again showed Merlyn-Majano tear with active bleeding and previous clips appear to have fallen off-clipped again with 2 clips and epinephrine injected. He is now on Protonix and Carafate suspension has been added. Hemoglobin is now stable. Diet has been advanced. Appreciate gastroenterology consultation and recommendations. He is now off the octreotide and Protonix drips. Apixaban will remain on hold for approximately 1 month per cardiology recommendations. (2) Thrombocytopenia: Platelets were mildly low since admission in the low 100s-110s but are low normal at baseline likely secondary to his B12 deficiency and consumption. Serial labs (3) Benign essential hypertension: Controlled with propranolol and bumetanide. (4) Aspiration pneumonia: CXR with right sided infiltrates. Treated with Unasyn x 5 days as per PULM recommendations. BCxs-negative (5) Atrial fibrillation, permanent: Remains rate controlled Afib and sometimes flutter. Continue holding home Eliquis for GI bleed x 1 month as per recommendation from his Sheet Rocker Dr. Briones. Continue propranolol . Telemetry (6) COPD (chronic obstructive pulmonary disease): Was requiring oxygen on 01/09 after vomiting and aspiration PNA-now on room air. Not on maintenance inhalers at home (7) BPH with obstruction/lower urinary tract symptoms: Continue home tamsulosin. Difficulty voiding before arrival and had High placed on admission. Now High out and passed trial of void (8) Hyperlipidemia: Stable. Continue atorvastatin (9) Hypothyroid: TSH normal in 05/2022. Stable. Continue levothyroxine (10) Neuropathy: Stable. Continue amitriptyline, gabapentin. (11) B12 deficiency: Receives monthly B12 injections (12) Acute blood loss anemia: Received blood transfusion this admission. Hemoglobin now stable at 10.9. Serial labs Plan DVT prophylaxis-SCDs Disposition- discharge to home with home health services today, january. He will continue with physical therapy as an outpatient. Total Time Total Time Spent Total Time Spent (In Minutes): 40 minutes Discharge Plan Discharge Items Patient Disposition: Home - Home Health Services Reason For Visit: HEMATEMESIS AND MELENA Discharge Diagnosis: Upper GI bleed, Merlyn-Majano tear, acute blood loss anemia, suspected aspirat ion pneumonia Activity: Resume your previous activity Non-emergency contact: Primary Care Provider Call non-emergency contact if: you have any medication questions Follow-up/Referrals: Kaylee Page DO [Primary Care Provider] - Diet: Regular and Heart Healthy Addtl Attending Provider Instructions: Andrea remains on hold for 1 month. Continue Protonix and Carafate suspension until seen by PCP Pending Studies at Discharge: No Stand-Alone Forms: My [facility], Smoking Cessation Medications and DC Order Prescriptions: New sucralfate 100 mg/mL Suspension 1 g PO QID Qty: 400 0RF potassium chloride 20 mEq Tablet,Er Particles/Crystals 20 meq PO QAM Qty: 30 0RF pantoprazole 40 mg Tablet,Delayed Release (Dr/Ec) 40 mg PO BID Qty: 60 0RF bumetanide 1 mg Tablet 0.5 mg PO QAM Qty: 30 0RF Continued cyanocobalamin (vitamin B-12) 1,000 mcg/mL kit 1,000 mcg IM MONTHLY Qty: 12 0RF triamcinolone acetonide 0.1 % cream See Rx Instructions .ROUTE .COMPLEX PRN (Reason: Rash) Qty: 30 3RF Dose Instruction: APPLY A THIN LAYER TO AFFECTED AREA(S) TWICE DAILY. Rx Instructions: APPLY A THIN LAYER TO AFFECTED AREA(S) TWICE DAILY. PRN; gabapentin 600 mg tablet 600 mg PO BID Qty: 180 1RF levothyroxine 25 mcg tablet 25 mcg PO QAM Qty: 90 1RF tamsulosin 0.4 mg capsule 0.4 mg PO QAM Qty: 90 1RF atorvastatin 10 mg tablet 10 mg PO QAM Qty: 90 3RF propranolol 10 mg tablet 10 mg PO AMPM polyethylene glycol 3350 17 gram powder in packet 17 gm PO DAILY PRN (Reason: Constipation) Rx Instructions: MIX 1 CAPFUL IN 8 OUNCES OF WATER amitriptyline 25 mg Tablet 25 mg PO HS PreserVision AREDS 2,148 mcg-113 mg-45 mg-17.4mg Tablet 2 tab PO AMPM Rx Instructions: administer with AM and PM meals Discontinued Eliquis 5 mg tablet 5 mg PO BID Qty: 180 3RF bumetanide 0.5 mg tablet 0.5 mg PO DAILY PRN (Reason: swelling) Qty: 90 0RF Discharge Orders: Discharge Order (Routine); Ordered 01/17/23 Ordered By: Edmundo Ram Admission Data Admit Date/Time: 01/08/23 22:33 Attending Provider: Edmundo Ram Admit Provider: Lee Rizvi Primary Care Provider: Kaylee Page Other Providers: Lise Herrera ; Froylan Adams ; Allen Arnold ; [facility] Other Interventions: Discharge Summary Assessment (RN) Last Done: 01/17/23 11:08 Coding Level of Care Code 16456 INP/OBS DISCH >30 MIN Diagnoses Acute GI bleeding K92.2 Thrombocytopenia D69.6 Benign essential hypertension I10 Aspiration pneumonia J69.0 Atrial fibrillation, permanent I48.2 COPD (chronic obstructive pulmonary disease) J44.9 BPH with obstruction/lower urinary tract symptoms N40.1; N13.8 Hyperlipidemia E78.5 Hyperlipidemia type: unspecified Hypothyroid E03.9 Hypothyroidism type: unspecified Neuropathy G62.9 B12 deficiency E53.8 Acute blood loss anemia D62
== END 2023-01-17 14:42 | disposition home or self-care (01) | DRG 368 ==
LOC: ED 18:21 → 2E 22:33 → SUATTDRO 22:33 → 2E 23:44 → 1E 01-09 12:36 → 2E 01-10 19:52

== ENCOUNTER 2024-05-26 13:59 | Observation (INO) ==
--- OUTSIDE RECORDS SUMMARY | 2024-05-26 14:04 | External Medical Summary | Summary of Care ---
Author Name Unknown Organization [facility] Address [address] [place] [address] Phone [phone] Care Team Providers Care Vinyl Top Installer Name Role Phone Kaylee Page DO Primary Care Provider +1- [phone] Reason for Visit * Reason Onset Date Comments Follow Up 03/20/2024 Procedure 03/20/2024 Encounter Details Date Type Department Care Team ([facility] st Contact Info) Description 03/20/2024 Telephone Cardiology [facility] [address] [place] [address] Jordan Darling CRNP [address] [place] [address] Follow Up; Procedure Allergies No known active allergiesdocumented as of this encounter (statuses as of 03/20/2024) Medications Medication Sig Dispensed Refills Start Date End Date Status GABAPENTIN 600 MG PO TABS Take by mouth 2 times a day. Active TAMSULOSIN HCL 0.4 MG PO CAPS 1 daily Active atorvaSTATin (LIPITOR) 10 MG Tablet Take 1 Tablet by mouth in the morning. Active polyethylene glycol 3350 (MIRALAX) 119 gram POWD Take 119 g by mouth as needed. Active triamcinolone acetonide (ARISTOCORT) 0.1 % cream Apply topically to affected area 2 times a day. Apply to affected area Active levothyroxine (LEVOXYL) 25 MCG Tablet Take 1 Tablet by mouth in the morning. (at least 30 min prior to breakfast or other meds). 34 Tab 11 06/12/2019 Active B-12 Compliance Injection 1000 MCG/ML Injection Kit (Cyanocobalamin) Inject 1,000 mcg into a large muscle every 30 days. Active Bumetanide 1 MG Oral Tablet (Bumex) Take 0.5 Tablets by mouth daily as needed. 01/17/2023 Active PreserVision AREDS Oral Capsule Take 2 Capsules by mouth in the morning and 2 Capsules in the evening. Active Aspirin 81 MG Oral Tablet Chewable Take 1 Tablet by mouth in the morning. Do not start before September 01, 2023. 09/01/2023 Active Propranolol HCl 10 MG Oral Tablet (Inderal)Indicatio ns:HTN, goal below 140/90,Permanent atrial fibrillation (HCC) Take 1 Tablet by mouth daily. 90 Tablet 3 12/05/2023 Active amLODIPine Besylate 5 MG Oral Tablet (Norvasc) Take 1 Tablet by mouth in the morning. Active Clopidogrel Bisulfate 75 MG Oral Tablet (pLAVix) Take 1 Tablet by mouth in the morning. 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 08/31/2023 LA thrombus 06/15/2023 Overview: Added automatically from request for surgery [id number] Permanent atrial fibrillation 05/24/2023 Overview: Added automatically from request for surgery [id number] Chronic atrial fibrillation 08/10/2020 HTN, goal below 140/90 08/10/2020 Acquired hypothyroidism 08/10/2020 documented as of this encounter (statuses as of 03/20/2024) Immunizations Name Administration Dates Next Due Seasonal Influenza, PF, 6 M & above, IM , (FluLaval or Fluzone) 07/10/2020,06/12/2019 Seasonal Influenza, Quadriva lent Hd (Fluzone Hd) 09/01/2023(Deferred: Contraindication - Pt discharged- Keesha Neves of EP aware) documented as of this encounter Social History Tobacco Use Types Packs/Day Years Used Date Smoking Tobacco: Former Cigars Q uit: 09/18/1979 Smokeless Tobacco: Never Alcohol Use Standard Drinks/Week Comments No 0 (1 standard drink = 0.6 oz pur e alcohol) Sex and Gender Information Value Date Recorded Sex Assigned at Not on file Gender Identity Not on file Sexual Orientation Not on file Job Start Date Occupation Industry Not on file Not on file Not on file documented as of this encounter Miscellaneous Notes * Telephone Encounter - Jordan Darling CRNP - 03/20/2024 3:15 PM EDT Watchman Follow up: Phone follow up Interval post procedure: 6 months Diagnostic Studies since last encounter ECHO: none LVEF: none TEAGAN: none Device Margin residual leak: NA LABS: Creatinine none Hemoglobin none [place] Scale: 1 Jean Claude Index Eval: All independent Current Outpatient Medications Medication Sig Dispense Refill GABAPENTIN 600 MG PO TABS Take by mouth 2 times a day. TAMSULOSIN HCL 0.4 MG PO CAPS 1 daily atorvaSTATin (LIPITOR) 10 MG Tablet Take 1 Tablet by mouth in the morning. polyethylene glycol 3350 (MIRALAX) 119 gram POWD Take 119 g by mouth as needed. triamcinolone acetonide (ARISTOCORT) 0.1 % cream Apply topically to affected area 2 times a day. Apply to affected area levothyroxine (LEVOXYL) 25 MCG Tablet Take 1 Tablet by mouth in the morning. (at least 30 min priorto breakfast or other meds). 34 Tab 11 B-12 Compliance Injection 1000 MCG/ML Injection Kit (Cyanocobalamin) Inject 1,000 mcg into a large muscle every 30 days. Bumetanide 1 MG Oral Tablet (Bumex) Take 0.5 Tablets by mouth daily as needed. PreserVision AREDS Oral Capsule Take 2 Capsules by mouth in the morning and 2 Capsules in the evening. Aspirin 81 MG Oral Tablet Chewable Take 1 Tablet by mouth in the morning. Do not start before September 01, 2023. Clopidogrel Bisulfate 75 MG Oral Tablet (pLAVix) Take 1 Tablet by mouth in the morning. 100 Tablet 1 Propranolol HCl 10 MG Oral Tablet (Inderal) Take 1 Tablet by mouth daily. 90 Tablet 3 amLODIPine Besylate 5 MG Oral Tablet (Norvasc) Take 1 Tablet by mouth in the morning. No current facility-administered medications for this visit. Follow up Anticoag Therapy: STOP Plavix ASA 81 mg daily indefinitely Any follow up events: none If Follow up events adjudication: none documented in this encounter Plan of Treatment Upcoming Encounters Date Type Department Care Team (Late st Contact Info) Description 07/23/2024 3:30 PM EST Office Visit Cardiology, [facility] [address] [place] [address] Oz Briones MD [address] [place] [address] Health Maintenance Due Date Last Done Comments Depression Screening 1947 Albumin/Creatinine Ratio 1953 DTaP,Tdap,and Td Vaccines (1 - Tdap) 1954 Zoster Vaccines (2 of 3) 10/15/2012 08/20/2012 TSH 02/24/2021 02/25/2020 COVID-19 Vaccine (1 - 2022- season) 2023 Influenza Vaccine (FLU shot) (#1) 2024 07/10/2020, 06/05/2020, 06/12/2019, Additional history exists Pneumococcal Vaccine: 65+ Years Completed 06/29/2018, 05/15/2017 HPV (Gardasil) Vaccine Aged Out No lo nger eligible based on patient's age to complete this topic Hepatitis B Vaccine Aged Out No longe r eligible based on patient's age to complete this topic MENINGOCOCCAL (MENACTRA/MENVEO) Aged Out No longer eligible based on patient's age to complete this topic documented as of this encounter Medical Devices Implanted Type Area Workers Compensation Consultant Device Identifier Shelf Expiration Date Model / Serial / Lot Device Watchman Flx 35mm - [id number] Implanted:Qty: 1 on 08/31/2023 [place] Vasyl Allen [place] [facility] [place] [employer] : INTRV CARD [id number] 05/11/2025 [id number] / / [id number] Device Watchman Flx 35mm - [id number] Implanted:Qty: 1 on 08/31/2023 by Vasyl Allen MD [place] [facility] [place] [employer] : INTRV CARD [id number] 04/09/2026 [id number] / / [id number] documented as of this encounter Advance Directives * Full Code (Latest Code Status on File) Date Activated Date Inactivated Comments 08/31/2023 4:36 PM 09/01/2023 2:00 PM This order reflects the patients wishes and were consensually agreed upon. Question Answer Comments Discussion of Advance Directives occurred with: Patient Does the patient have a Living Will? No Does the patient have Health Care Power of Attor urban? No Care Teams Vinyl Top Installer Relationship Specialty Start Date End Date Kaylee Page DO [address] [facility] [address] [place] [address] PCP - General Family Medicine 06/12/19 documented as of this encounter
--- OUTSIDE RECORDS SUMMARY | 2024-05-26 14:04 | External Medical Summary | Summary of Care ---
Author Name Unknown Organization [facility] Address [address] [place] [address] Phone [phone] Care Team Providers Care Paper Handler Name Role Phone Kaylee Page DO Primary Care Provider +1- [phone] Reason for Visit * Reason Comments eRx-Medication Refill Encounter Details Date Type Department Care Team ([facility] st Contact Info) Description 12/04/2023 Refill Cardiology, [facility] [address] [place] [address] Juan Briones MD [address] [place] [place] [address] HTN, goal below 140/90*; Permanent atrial fibrillation (HCC) Allergies No known active allergiesdocumented as of this encounter (statuses as of 12/05/2023) Medications Medication Sig Dispensed Refills Start Date End Date Status GABAPENTIN 600 MG PO TABS Take by mouth 2 times a day. 0 Active TAMSULOSIN HCL 0.4 MG PO CAPS 1 daily 0 Active atorvaSTATin (LIPITOR) 10 MG Tablet Take 1 Tablet by mouth in the morning. 0 Active polyethylene glycol 3350 (MIRALAX) 119 gram POWD Take 119 g by mouth as needed. 0 Active triamcinolone acetonide (ARISTOCORT) 0.1 % cream Apply topically to affected area 2 times a day. Apply to affected area 0 Active levothyroxine (LEVOXYL) 25 MCG Tablet Take 1 Tablet by mouth in the morning. (at least 30 min prior to breakfast or other meds). 34 Tab 11 06/12/2019 Active B-12 Compliance Injection 1000 MCG/ML Injection Kit (Cyanocobalamin) Inject 1,000 mcg into a large muscle every 30 days. 0 Active Bumetanide 1 MG Oral Tablet (Bumex) Take 0.5 Tablets by mouth daily as needed. 0 01/17/2023 Active PreserVision AREDS Oral Capsule Take 2 Capsules by mouth in the morning and 2 Capsules in the evening. 0 Active Aspirin 81 MG Oral Tablet Chewable Take 1 Tablet by mouth in the morning. Do not start before September 01, 2023. 0 09/01/2023 Active Clopidogrel Bisulfate 75 MG Oral Tablet (pLAVix) Take 1 Tablet by mouth in the morning. 100 Tablet 1 10/17/2023 Active Propranolol HCl 10 MG Oral Tablet (Inderal)Indicatio ns:HTN, goal below 140/90,Permanent atrial fibrillation (HCC) Take 1 Tablet by mouth daily. 90 Tablet 3 12/05/2023 Active Propranolol HCl 10 MG Oral Tablet (Inderal) Take 1 Tablet by mouth in the morning. 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 08/31/2023 LA thrombus 06/15/2023 Overview: Added automatically from request for surgery [id number] Permanent atrial fibrillation 05/24/2023 Overview: Added automatically from request for surgery [id number] Chronic atrial fibrillation 08/10/2020 HTN, goal below 140/90 08/10/2020 Acquired hypothyroidism 08/10/2020 documented as of this encounter (statuses as of 12/05/2023) Immunizations Name Administration Dates Next Due Seasonal Influenza, PF, 6 M & above, IM , (FluLaval or Fluzone) 07/10/2020,06/12/2019 Seasonal Influenza, Quadriva lent Hd (Fluzone Hd) 09/01/2023(Deferred: Contraindication - Pt discharged- Keesha Neves of EP aware) documented as of this encounter Social History Tobacco Use Types Packs/Day Years Used Date Smoking Tobacco: Former Cigars Smokeless Tobacco: Never Alcohol Use Standard Drinks/Week [...] encounter Miscellaneous Notes * Telephone Encounter - Juan Briones MD - 12/05/2023 8:31 AM EDTSigned Prescriptions: Disp Refills Propranolol HCl 10 MG Oral Tablet (Inderal)90 Tab*3 Sig: Take 1 Tablet by mouth daily. Authorizing Provider: JUAN BRIONES * Telephone Encounter - Olivia Olson COT - 12/05/2023 8:08 AM EDTPending Prescriptions: Disp Refills Propranolol HCl 10 MG Oral Tablet (Inderal)90 Tab*3 Sig: Take 1 Tablet by mouth daily. * Telephone Encounter - Olivia Olson COT - 12/05/2023 8:08 AM EDT Did you pend patient's preferred pharmacy and medication before forwarding?yes Pharmacy: [id number] [facility] Pending Prescriptions: Disp Refills Propranolol HCl 10 MG Oral Tablet (Indera*90 Tab*3 Sig: Take 1 Tablet by mouth daily. Last Visit: 08/02/2023 (in office), Visit date not found (telemedicine) Next Visit: 01/10/2024 If no future appointments scheduled, and last appointment is greater than a year ago, please schedule patient for a follow-up appointment Last date the medication was ordered: 08-02-2023 Is this request for a controlled substance?No Urine Drug Screen:No results found for this or any previous visit. Patient Phone Numbers Labs: Lab Results Component Value Date/Time CREAT 1.2 10/13/2023 10:34 AM CREAT 1.22 02/25/2020 12:00 AM CREAT 1.2 06/12/2019 12:05 PM POTASSIUM 3.8 10/13/2023 10:34 AM POTASSIUM 3.9 02/25/2020 12:00 AM POTASSIUM 4.1 06/12/2019 12:05 PM TSH 3.180 02/25/2020 12:00 AM ALT 14 08/31/2023 12:18 PM documented in this encounter Plan of Treatment Upcoming Encounters Date Type Department Care Team (Late st Contact Info) Description 01/10/2024 1:30 PM EDT Office Visit Cardiology, [facility] [address] [place] [address] Екатерина Hensley PA-C [address] [place] [address] Health Maintenance Due Date Last Done Comments Depression Screening 1947 Albumin/Creatinine Ratio 1953 DTaP,Tdap,and Td Vaccines (1 - Tdap) 1954 Zoster Vaccines (2 of 3) 10/15/2012 08/20/2012 TSH 02/24/2021 02/25/2020 COVID-19 Vaccine (1 - 2022- season) 2023 Influenza Vaccine (FLU shot) (#1) 2023 07/10/2020, 06/05/2020, 06/12/2019, Additional history exists Pneumococcal Vaccine: 65+ Years Completed 06/29/2018, 05/15/2017 GARDASIL-HPV IMMUNIZATION SERIES Aged Out No longer eligible based on patient's age to complete this topic Hepatitis B Aged Out No longer eligi ble based on patient's age to complete this topic MENINGOCOCCAL (MENACTRA/MENVEO) Aged Out No longer eligible based on patient's age to complete this topic documented as of this encounter Medical Devices Implanted Type Area Poultry Husbandry Worker Device Identifier Shelf Expiration Date Model / Serial / Lot Device Watchman Flx 35mm - [id number] Implanted:Qty: 1 on 08/31/2023 by Vasyl Allen MD at [facility] [place] [employer] : INTRV CARD [id number] 05/11/2025 [id number] / / [id number] Device Watchman Flx 35mm - [id number] Implanted:Qty: 1 on 08/31/2023 by Vasyl Allen MD at [facility] [place] [employer] : INTRV CARD [id number] 04/09/2026 [id number] / / [id number] documented as of this encounter Visit Diagnoses Diagnosis HTN, goal below 140/90- Primary Unspecified essential hypertension Permanent atrial fibrillation (HCC) Atrial fibrillation documented in this encounter Advance Directives Latest Code Status on File Code Status Date Activated Date Inactivated Comments Full Code 08/31/2023 4:36 PM 09/01/2023 2:00 PM Thi s order reflects the patients wishes and were consensually agreed upon. Question Answer Comments Discussion of Advance Directives occurred with: Patient Does the patient have a Living Will? No Does the patient have Health Care Power of Reservation Clerk? No Care Teams Paper Handler Relationship Specialty Start Date End Date Kaylee Page DO [address] [facility] [address] [place] [address] PCP - General Family Medicine 06/12/19 documented as of this encounter
--- OUTSIDE RECORDS SUMMARY | 2024-05-26 14:04 | External Medical Summary | Summary of Care ---
Author Name Unknown Organization [facility] Address [address] [place] [address] Phone [phone] Care Team Providers Care Caddy/Caddie Supervisor Name Role Phone Kaylee Page DO Primary Care Provider [phone] Reason for Visit * Reason Comments Follow Up 5 month follow up. Tae donis completed 09/01/23. Palpitations once in a while but no more frequent then prior. SOB and dizziness no worse then prior. Edema in ankles no worse then prior. Denies pain. Encounter Details Date Type Department Care Team (Late st Contact Info) Description 01/10/2024 1:30 PM EDT Office Visit Cardiology, [facility] [address] [place] [address] Екатерина Hensley PA-C [address] [place] [address] Permanent atrial fibrillation (HCC)*; Bradycardia; HTN, goal below 140/90; Presence of Watchman left atrial appendage closure device; Nonrheumatic aortic valve stenosis Allergies No known active allergiesdocumented as of this encounter (statuses as of 01/10/2024) Medications Medication Sig Dispensed Refills Start Date [...] Active Propranolol HCl 10 MG Oral Tablet (Inderal)Indications :HTN, goal below 140/90,Permanent atrial fibrillation (HCC) Take 1 Tablet by mouth daily. 90 Tablet 3 12/05/2023 Active amLODIPine Besylate 5 MG Oral Tablet (Norvasc) Take 1 Tablet by mouth in the morning. 0 Active documented as of this encounter (statuses as of 01/10/2024) Active Problems Problem Noted Date Diagnosed Date Nonrheumatic aortic valve stenosis 01/10/2024 Presence of Watchman left atrial appendage closu re device 08/31/2023 LA thrombus 06/15/2023 Overview: Added automatically from request for surgery [id number] Permanent atrial fibrillation 05/24/2023 Overview: Added automatically from request for surgery [id number] Chronic atrial fibrillation 08/10/2020 HTN, goal below 140/90 08/10/2020 Acquired hypothyroidism 08/10/2020 documented as of this encounter (statuses as of 01/10/2024) Immunizations Name Administration Dates Next Due Seasonal [...] on file documented as of this encounter Last Filed Vital Signs Vital Sign Reading Time Taken Comments Blood Pressure 142/84 01/10/2024 1:29 PM EDT Pulse 64 01/10/2024 1:29 PM EDT Temperature - - Respiratory Rate 16 01/10/2024 1:29 PM EDT Oxygen Saturation - - Inhaled Oxygen Concentration - - Weight 95 kg (209 lb 8 oz) 01/10/2024 1:29 PM ED T Height - - Body Mass Index 24.21 10/17/2023 10:16 AM EST documented in this encounter Patient Instructions * Patient Instructions* Екатерина Hensley PA-C - 01/10/2024 1:50 PM EDT Finish out Plavix/Clopidogrel prescription and then stop. This will likely be in February or March. documented in this encounter Progress Notes * Екатерина Hensley PA-C - 01/10/2024 2:46 PM EDT 01/10/2024 Cardiology F/U: SUBJECTIVE: Filiberto Simmons is a 88 year old male here today for routine cardiology follow-up. Lastclinic evaluation approximately [address] Briones. History includes: 1. Chronic atrial fibrillation with chronic bradycardia 2. Chronic bronchiectasis 3. Restless leg syndrome 4. Diagnostic cardiac catheterization [place], [place] without obstructive disease 2018 per patient report 5. Hypothyroidism 6. Essential tremor 7. Prior Merlyn-Majano tear 8. Calcific aortic stenosis - mild to moderate per TEAGAN Sep 2023 9. S/P Watchman implantation Aug 2023 Patient presents today feeling well. He tolerated watchman. Still taking plavix. Will take until script is finished, around . 6 months post implant. No interim hospitalizations. No chest pain, shortness of breath, palpitations, dizziness, syncope or near syncope. No orthopnea,PND, or increased lower extremity edema. No fever, chills, cough, hematochezia, melena, or hemoptysis. Review of Systems: See HPI for pertinent positives. All others negative, other than those noted in HPI. Patient Active Problem List Diagnosis Code Chronic atrial fibrillation (HCC) I48.20 HTN, goal below 140/90 I10 Acquired hypothyroidism E03.9 Permanent atrial fibrillation (HCC) I48.21 LA thrombus I51.3 Presence of Watchman left atrial appendage closure device Z95.818 Review of patient's allergies indicates: No Known Allergies Current Outpatient Medications Medication Sig Dispense Refill [...] No current facility-administered medications for this visit. OBJECTIVE/PHYSICAL EXAMINATION: BP 142/84 | Pulse 64 | Resp 16 | Wt 95 kg (209 lb 8 oz) | BMI 24.21 kg/m | BSA 2.29 m On my repeat 132/76 General: no acute distress and stated age Head: normocephalic, no masses, lesions, tenderness or abnormalities Eyes: conjunctiva are pink and non-injected, sclera clear Throat: clear Nares: without discharge Neck: supple, no adenopathy, no bruits, normal jugular venous pulse, no hepatojugular reflux, no carotid bruits Chest: normal shape and normal respiratory effort Lungs: clear to auscultation and percussion Cardiac Exam: - irregular irregular, bradycardic, grade 2/6 systolic murmur, no diastolic murmur, gallop or rub - normal S-1, normal S-2 Abdomen: abdomen soft, non-tender, no abnormal masses, no hepatosplenomegaly, no abdominal bruit, no femoral bruit Musculoskeletal: no gait disturbance, no joint inflammation, no deforming arthritis Extremities: 1+ lower extremity edema, no cyanosis, pulses intact 2+/4 Neuro: grossly normal exam Data: TEAGAN report reviewed from Sep 2023: Interpretation Summary The examination is adequate to evaluate the referral indication. A left atrial appendage closure device is identified. A left atrial appendage closure device is identified. Adequate closure of the appendage office withminimal to no flow around the device is present. The qualitative LV ejection fraction is 55-59% (normal). No LV segmental wall motion abnormalities. Visually there is mild to moderate aortic stenosis present with restricted motion of the non-coronary cusp. EKG reviewed from Aug 2023: Atrial fibrillation Septal infarct , age undetermined Abnormal ECG When compared with ECG of 31-AUG-2023 12:27, Septal infarct is now Present ZIO report reviewed dated Jul 2023: Duration: 6 days, 21 hours 1 run of Ventricular Tachycardia occurred lasting 6 beats with a max rate of 179 bpm (avg 124 bpm).Atrial Fibrillation occurred continuously (100% burden), ranging from 41-122 bpm (avg of 65 bpm). Isolated VEs were rare (<1.0%, 290), VE Couplets were rare (<1.0%, 9), and VE Triplets were rare (<1.0%, 1). 14 symptomatic events reported correlating with atrial fibrillation with heart rate ranging from 51- 108 bpm. Echocardiogram April 19, 2022 The left ventricular cavity size is normal. The LV wall thickness is moderately increased (concentric). The left ventricular wall motion is normal. The aortic valve is moderately calcified. Mild aortic valve stenosis is present. The right ventricular cavity is mildly dilated. The right atrium is severely enlarged. Mild mitral regurgitation is present. Mild tricuspid regurgitation is present. There is no evidence of pulmonary hypertension. Latest Reference Range & Units 10/13/23 10:34 Sodium 135 - 146 mmol/L 142 Potassium 3.5 - 5.1 mmol/L 3.8 Chloride 98 - 107 mmol/L 104 CO2 22 - 32 mmol/L 28 BUN 6 - 20 mg/dL 20 Creatinine 0.6 - 1.2 mg/dL 1.2 Estimated Glomerular Filtration Rate >=60 mL/min 58 (L) Anion Gap 7 - 15 mmol/L 10 Glucose 70 - 120 mg/dL 116 Calcium 8.4 - 10.2 mg/dL 9.0 (L): Data is abnormally low ASSESSMENT: 88 year old male ICD-10-CM 1. Permanent atrial fibrillation (HCC) I48.21 2. Bradycardia R00.1 3. HTN, goal below 140/90 I10 4. Presence of Watchman left atrial appendage closure device Z95.818 5. Nonrheumatic aortic valve stenosis I35.0 PLAN: Patient S/P Watchman in Aug 2023. He is on Plavix for 6 months, Refills provided for 6 months. He is aware to finish this script and stop. Recent TEAGAN demonstrated mild to mod . Will monitor. Recent ZIO without significant pauses or bradycardia. Continue low dose propranolol. Patient to call with any new or worsening dizziness The patient is to continue all current medications as listed above. No changes were made at today'svisit. Patient is being evaluated in the cardiology office for ongoing care/risk management for Afib; . I spent a total of 30 minutes on the date of service in preparation, delivery, and documentation ofthe care provided to Filiberto Simmons excluding any time spent in the performance of separately billed services. The patient agrees to the above plan and will call with additional questions or concerns. ER with all emergencies advised. Follow-up: Return in about 6 months (around 07/11/2024). | Check-out note: With Dr. Anselmo Hensley PA-C Department of Cardiology This chart was completed in part utilizing [employer] Voice Recognition Software. Grammatical errors, random word insertions, prounoun errors, and incomplete sentences are an occasional consequence of this system due to software limitations, ambient noise, and hardware issues. Any formal questions or concerns about the content, text, or information contained within the body of this dictation should be directly addressed to the provider for clarification. documented in this encounter Nursing Notes * Heraclio Puentes LPN - 01/10/2024 1:27 PM EDT Patient identified by full name and date of Chief Complaint Patient presents with Follow Up 5 month follow up. Watchman completed 09/01/23. Palpitations once in a while but no more frequent then prior. SOB and dizziness no worse then prior. Edema in ankles no worse then prior. Denies pain. Examination Room: 1 Name: Filiberto Simmons Date of : (1935). Reason for Visit: 1 Interim Hospitalization(s): Denies Problems/Concerns: See chief complaint Chest Pain/SOB: See chief complaint [facility] Discussed: Not applicable [facility] is a way you can talk to your provider online through e-mail. Would you like to sign up? I can activate it for you? DECLINES Patient was instructed to not get up on the exam table until directed and assisted by their provider; patient is to remain seated in the chair/ wheelchair/ exam table for fall prevention and safety reasons. Patient is aware to have assistance to step down off exam table with personnel. Patient voiced full comprehension of instructions. documented in this encounter Plan of Treatment Upcoming Encounters Date Type Department Care Team (Late st Contact Info) Description 07/23/2024 3:30 PM EST Office Visit Cardiology, [facility] [address] [facility] [address] Oz Briones MD [address] [place] [id number] Health Maintenance Due Date Last Done Comments Depression Screening 1947 Albumin/Creatinine Ratio 1953 DTaP,Tdap,and Td Vaccines (1 - Tdap) 1954 Zoster Vaccines (2 of 3) 10/15/2012 08/20/2012 TSH 02/24/2021 02/25/2020 COVID-19 Vaccine (1 - 2022- season) 2023 Influenza Vaccine (FLU shot) (Season Ended) 2024 07/10/2020, 06/05/2020, 06/12/2019, Additional history exists [...] this encounter Medical Devices Implanted Type Area Sole Tier Device Identifier Shelf Expiration Date Model / Serial / Lot Device Watchman Flx 35mm - [id number] Implanted:Qty: 1 on 08/31/2023 by Vasyl Allen MD at [facility] [employer] : INTRV CARD [id number] 05/11/2025 [id number] / / [id number] Device Watchman Flx 35mm - [id number] Implanted:Qty: 1 on 08/31/2023 by Vasyl Allen MD at [facility] [employer] : INTRV CARD [id number] 04/09/2026 [id number] / / [id number] documented as of this encounter Visit Diagnoses Diagnosis Permanent atrial fibrillation (HCC)- Primary Atrial fibrillation Bradycardia Other specified cardiac dysrhythmias HTN, goal below 140/90 Unspecified essential hypertension Presence of Watchman left atrial appendage closure device Nonrheumatic aortic valve stenosis Aortic valve disorders documented in this encounter Advance Directives Latest [...] the patient have Health Care Power of Coronary Care Unit Nurse? No Care Teams Caddy/Caddie Supervisor Relationship Specialty Start Date End Date Kaylee Page DO [address] [facility] [address] [place] [address] PCP - General Family Medicine 06/12/19 documented as of this encounter"
[2024-05-26 14:46] LABS: Basophils # (auto) 0.02 K/uL (0.00-0.20); Basophils % (auto) 0.2 %; Eosinophils # (auto) 0.19 K/uL (0.00-0.50); Eosinophils % (auto) 1.6 %; Hematocrit (blood only) 43.5 % (42.0-52.0); Hemoglobin 14.5 g/dl (14.0-18.0); Immature Granulocytes # (auto) 0.03 K/uL (0.01-0.20); Immature Granulocytes % (auto) 0.3 %; Lymphocytes % (auto) 11.9 %; Mean Corpuscular Hgb Conc 33.3 g/dL (32.0-36.0); Mean Corpuscular Volume 92.9 fL (80.0-100.0); Mean Platelet Volume 11.2 fL (9.4-12.4); Monocytes # (auto) 1.12 K/uL (0.11-0.59); Monocytes % (auto) 9.5 %; Neutrophils # (auto) 8.97 K/uL (1.40-6.50); Neutrophils % (auto) 76.5 %; Platelet Count 158 K/uL (130-400); RDW Coefficient of Variation 14.1 % (11.5-14.5); RDW Standard Deviation 48.2 fL (36.4-46.3); Red Blood Count 4.68 M/uL (4.70-6.10); White Blood Count 11.73 K/ul (4.8-10.8)
--- NOTE | 2024-05-26 14:53 | XRay Report ---
XR chest 1V portable HISTORY: 88 years-old Male Dyspnea acute shortness of breath COMPARISON: 01/10/2023 TECHNIQUE: AP view of the chest FINDINGS: Left atrial occlusion device. Heart is upper limits of normal in size. Atherosclerosis of the aorta. No pneumothorax, pleural effusion or airspace consolidation. Bones appear grossly intact. IMPRESSION: No acute process. ACT 112: Negative or not required by law. The above report was generated using voice recognition software. It may contain grammatical, syntax o r spelling errors. Electronically signed by: Riley Gottlieb M.D. 05/26/2024 2:52 PM
[2024-05-26 15:03] LABS: Albumin Globulin Ratio 1.3 (0.9-2); Albumin Level 3.9 gm/dl (3.4-5.0); BUN Creatinine Ratio 20.6 (10-20); Bilirubin,Total 1.4 mg/dl (0.2-1.0); Calcium 8.8 mg/dl (8.6-10.3); Creatinine Clr Calc Pharmacy 65.1 ml/min; Est GFR (African American) 79.9 ml/min; Est GFR (Non-African American) 68.9 ml/min; Globulin 3.1 gm/dl (2.5-4.0)
[2024-05-26 15:10] LABS: Troponin I High Sensitivity 5.9 pg/ml (0-20)
[2024-05-26 15:31] LABS: Adenovirus PCR Not Detected (NotDetected); Bordetella parapertussis PCR Not Detected (NotDetected); Bordetella pertussis PCR Not Detected (NotDetected); Chlamydia pneumoniae PCR Not Detected (NotDetected); Coronavirus 229E PCR Not Detected (NotDetected); Coronavirus CoV-2 (COVID19)PCR Not Detected (NotDetected); Coronavirus HKU1 PCR Not Detected (NotDetected); Coronavirus NL63 PCR Not Detected (NotDetected); Coronavirus OC43PCR Not Detected (NotDetected); Human Metapneumovirus PCR Not Detected (NotDetected); Influenza A PCR Not Detected (NotDetected); Influenza B PCR Not Detected (NotDetected); Mycoplasma pneumoniae PCR Not Detected (NotDetected); Parainfluenza Virus 1 PCR Not Detected (NotDetected); Parainfluenza Virus 2 PCR Not Detected (NotDetected); Parainfluenza Virus 3 PCR Not Detected (NotDetected); Parainfluenza Virus 4 PCR Not Detected (NotDetected); Respiratory Syncytial VirusPCR Not Detected (NotDetected); Rhinovirus/Enterovirus PCR Not Detected (NotDetected)
--- NOTE | 2024-05-26 16:13 | History & Physical Report ---
Date of Service May 26, 2024 Assessment & Plan (1) Acute congestive heart failure: Plan: Suspected exacerbation due to poor diet with sauerkraut, hot dogs and frozen meals Bumex 1mg IV BID Consider switch of beta saima but he uses propranolol for benign essential tremor therefore would need to make sure this doesn't get worse TTE Strict I&Os Daily weights (2) Neuropathy: Plan: Continue gabapentin (3) Hypothyroid: Plan: TSH WNL Continue levothyroxine (4) Atrial fibrillation, permanent: Plan: Rate controlled on propranolol Not on anticoagulation due to watchman (5) BPH with obstruction/lower urinary tract symptoms: Plan: Continue tamsulosin (6) Benign essential tremor: Plan: Continue propranolol Plan VTE Prophylaxis - Lovenox 40mg SQ daily Diet - heatt healthy, Low Na, Fluids restricted Disposition - admit to med/tele Admission and Anticipated Discharge Date Admission Date: May 26, 2024 History of Present Illness Primary Care Provider: DO Filiberto Borden Iris is an 88 year old male with atrial fibrillation s/p watchman who presents to the ER with shortness of breath. He reports shortness of breath progressively getting worse especially on lying flat for the last 3 days with associated pre-syncope and non-productive cough. A week ago he felt fine. At baseline he takes Bumex as needed for ankle swelling. He reports last taking this on and usually takes it around twice a week sometimes 0.5mg, occasionally 1mg. He notes his isn't in good shape and not cooking as much for him recently and is living off frozen meals sauerkraut and hot dogs (although this isn't too unusual for him it may have increased with his not cooking as much). He denies any chest pain, paroxysmal nocturnal dyspnea, palpitations, syncope, claudication, fever, chills, nasal congestion, sinus pain. No change to urinary symptoms, he notes nocturia three times a night which is stable. He took all his morning medications. Allergies Allergy/AdvReac Type Severity Reaction Status Date / Time COVID-19 vaccine, mRNA, AdvReac Severe MADE WEAK; Verified 05/26/24 15:17 [id number], VERY ILL [From Moderna COVID-19 Booster(Unap)] Home Medications Medication Instructions Recorded Confirmed Type polyethylene glycol 3350 17 gram 17 gm PO DAILY PRN Constipation 01/08/23 05/26/24 History oral powder packet triamcinolone acetonide 0.1 % See Rx Instructions .Route 09/27/23 05/26/24 Rx topical cream .COMPLEX PRN Rash #30 grams syringe with needle 3 mL 25 gauge #12 ea 11/03/23 05/26/24 Rx x 1" (BD Luer-Frances Syringe) cyanocobalamin (vitamin B-12) 1,000 mcg IM MONTHLY #12 ea 03/01/24 05/26/24 Rx 1,000 mcg/mL injection kit vitamins A,C,V-ckgl-usufgc 2,148 1 tab PO AMPM #180 tabs 03/01/24 05/26/24 Rx mcg-113 mg-45 mg-17.4 mg tablet (PreserVision AREDS) atorvastatin 10 mg tablet 10 mg PO QAM #90 tabs 04/11/24 05/26/24 Rx bumetanide 1 mg tablet 0.5 mg (1/2 x 1 mg) PO QAM #45 tabs 04/11/24 05/26/24 Rx gabapentin 600 mg tablet 600 mg PO BID #180 tabs 04/11/24 05/26/24 Rx propranolol 10 mg tablet 10 mg PO BID #180 tabs 04/11/24 05/26/24 Rx tamsulosin 0.4 mg capsule 0.4 mg PO QAM #90 caps 04/11/24 05/26/24 Rx levothyroxine 25 mcg tablet 25 mcg PO QAM #90 tabs 04/22/24 05/26/24 Rx amlodipine 5 mg tablet 5 mg PO QAM 05/26/24 05/26/24 History aspirin 81 mg tablet,delayed 81 mg PO QAM 05/26/24 05/26/24 History release Past Med/Surg History Problem List (Updated 05/27/24 @ 06:54 by Be Bashir MD) Benign essential tremor Orthopnea (Acute) Exertional dyspnea (Acute) Acute CHF (congestive heart failure) (Acute) Acute congestive heart failure Neuropathy Hypothyroid Hyperlipidemia Depression with anxiety COPD (chronic obstructive pulmonary disease) Chronic back pain BPH with obstruction/lower urinary tract symptoms Benign essential hypertension B12 deficiency Atrial fibrillation, permanent was on eliquis, taken off, only on 81mg aspirin/propranolol daily--follows with Dr. Anselmo Guillen Microalbuminuria Hematuria, microscopic SKINNER (dyspnea on exertion) Tremors of nervous system Thrombocytopenia Merlyn-Majano tear hx of 12/2022 Restless leg syndrome Chronic anticoagulation pt was on eliquis, taken off, only on 81mg aspirin daily Insomnia PAC (premature atrial contraction) Medical History (Updated 05/27/24 @ 06:54 by Be Bashir MD) History of melanoma on face/lip Hearing deficit History of COVID-19 05/2022--hospitalized at [facility] for 2 days due to severe weakness--no symptoms now Aspiration pneumonia Pulmonary nodules last CT chest in December 2018 noting resolution of pulmonary nodules, no fu rther f/u indicated. Prostate nodule History of pneumonia History of Lyme disease Elevated PSA Bronchiectasis Surgical History History of esophagogastroduodenoscopy (EGD) 01/11/23 @ [facility] History of colonoscopy History of Mohs micrographic surgery for skin cancer x2 History of tooth extraction all teeth removed History of tonsillectomy History of bilateral cataract extraction History of cardiac cath 10/2017 in [place]--no stents placed H/O laminectomy cervical--normal ROM H/O hernia repair Hx of hand surgery Family History Mother Breast cancer Daughter Breast cancer Other No family history of adverse response to anesthesia Denies family history of Ovarian cancer Prostate cancer Myocardial infarction Colorectal cancer Social History Smoking Status: Never smoker Second Hand Exposure: No; Do You Dip or Chew Tobacco: No; Hx Alcohol Use: No Hx Substance Use: No Preferred Language: Greek Communication Ability: Effective Hearing Ability: Normal Customer Service Technician Required: No Beliefs That Will Affect Care: None marital status: Current Living Situation: Spouse Current Living Situation Comment: Pt lives at home with his , Celia. current occupational status: retired How many Children do You have: 5 Feels Safe at Home: Yes Childhood Exposure to Second-Hand Smoke: No Diet: other Diet Comment: Does not follow diet. caffeine: Yes (Coffee x 1 cup per day.) during the past year weight has: remained stable Dental Care, Regularly: Yes Physical Activity Frequency: Does not Exercise Seatbelt Use: always Sunscreen Use: Yes Assistive Devices: Cane, Denture - Upper, Denture - Lower and Glasses Review of Systems Review of Systems: All systems reviewed & are unremarkable except as noted in HPI & below Gastrointestinal: + abdominal pain (left sided in the last three days, cramping, not currently present) Physical Exam Constitutional: WD/WN, vitals as above Respiratory: normal respiratory effort; no respiratory distress (only on lying down) Auscultation: + crackles (bibasal); breath sounds present, no diminished lung sounds, no rales, no rhonchi and no wheezes Cardiovascular: Rate/Rhythm: regular rate and + irregularly irregular Heart Sounds: no murmur Vessels: + JVD Extremities: normal capillary refill and + pedal edema (1+ b/l equal to mid shins); no calf tenderness Gastrointestinal (Abdomen): normal bowel sounds, soft, nontender, no hepatosplenomegaly Musculoskeletal: no cyanosis or clubbing, extremities motor strength 5/5 Skin: no rashes, warm and dry Neurologic: moves all extremities and awake; not confused Psychiatric: A+Ox3, euthymic affect Results & Data Results & Data Vital Signs (Past 12 Hours) Vital Signs Temp Pulse Resp BP Pulse Ox O2 Del Method 05/26/24 14:36 71 05/26/24 14:07 36.5 C 69 18 112/71 97 Room Air 05/26/24 13:59 Room Air 05/26/24 13:59 Room Air Laboratory Results Abnormal lab results 05/26/24 05/26/24 Range/Units 14:30 Unknown WBC 11.73 H (4.8-10.8) K/ul RBC 4.68 L (4.70-6.10) M/uL RDW Std Deviation 48.2 H (36.4-46.3) fL Neut # (Auto) 8.97 H (1.40-6.50) K/uL [place] # (Auto) 1.12 H (0.11-0.59) K/uL BUN/Creatinine Ratio 20.6 H (10-20) Total Bilirubin 1.4 H (0.2-1.0) mg/dl B-Natriuretic Peptide 264 H (0-100) pg/ml Urine Appearance Cloudy A (Clear) Urine Urobilinogen Positive H (Negative) Urine RBC (Auto) 6-10 H (0-2) /hpf Diagnostic Findings XR chest 1V portable HISTORY: 88 years-old Male Dyspnea acute shortness of breath COMPARISON: 01/10/2023 TECHNIQUE: AP view of the chest FINDINGS: Left atrial occlusion device. Heart is upper limits of normal in size. Atherosclerosis of the aorta. No pneumothorax, pleural effusion or airspace consolidation. Bones appear grossly intact. IMPRESSION: No acute process. Medications Administered ER Medications Given: None ECG Rate (beats per minute): 65 Rhythm: atrial fibrillation Findings: + other (T wave flattening in inferior leads); no acute ischemic change Comparison ECG Date: from (January 08, 2023) Code Status & VTE Plan Code Status Full VTE Prophylaxis Plan VTE Prophylaxis will be ordered: Yes PG Care Time/CCT Total # of Minutes Spent Total Time Spent with Patient: Total time spent is greater than 50% in coordination of care (as documented) at patient's floor/unit and/or counseling patient: Coding Level of Care Code 77109 INT INP/OBS CARE 3/75MIN Diagnoses Acute congestive heart failure I50.9 Neuropathy G62.9 Hypothyroidism, unspecified type E03.9 Hypothyroidism type: unspecified Atrial fibrillation, permanent I48.2 BPH with obstruction/lower urinary tract symptoms N40.1; N13.8 Benign essential tremor G25.0 (3) Hypothyroid Hypothyroidism type: unspecified Qualified Code(s): E03.9 - Hypothyroidism, unspecified
[2024-05-26] MEDS: BUMETANIDE 1 MG in SYRINGE 0 ML IV STA (16:26)
[2024-05-26 16:56] LABS: Magnesium 2.1 mg/dl (1.7-2.4)
[2024-05-26 17:14] LABS: Appearance Urine Cloudy (Clear); Bacteria Urine Automated None Seen (None Seen); Bilirubin Urine Negative (Negative); Blood Urine Negative (Negative); Cast Urine Automated 0-2 /lpf (0-2); Color Urine Yellow; Epithelial Cell Urine Auto 0-2 /hpf (0-2); Glucose Urine UA Negative (Negative); Ketones Urine Negative (Negative); Leukocyte Esterase Urine Negative (Negative); Nitrite Urine Negative (Negative); Protein Urine Negative (Negative); Specific Gravity Urine 1.013 (1.000-1.030); Urobilinogen Urine Positive (Negative); WBC Urine Automated 0-5 /hpf (0-5); pH Urine 7.5 (4.5-7.5)
--- NOTE | 2024-05-26 18:18 | Emergency Department Note ---
Impression & Plan Acute CHF (congestive heart failure), Exertional dyspnea, Orthopnea ED Provider Note NAME: GISSELLE ZHENG AGE: 88 SEX: M : 1935 ARRIVES VIA: Walk-In INFORMANT: Patient, ED PROVIDER(S): Gaetano Niño MD CHIEF COMPLAINT: Shortness of breath, exertional dyspnea HPI: This is an 88-year-old male presenting for exertional dyspnea. Patient notes that he has A-fib and has a Watchman procedure. He notes otherwise he is on a chest pain. He notes no pleurisy. He does note when he lays flat he is unable to breathe. He is also unable to walk long distances let alone to the bathroom at this time. His son notes that he even has trouble talking sometimes due to this shortness of breath. ROS: See above HPI for pertinent positives & negatives. A total of 10 systems reviewed and were otherwise negative. PAST MEDICAL HISTORY: See Below PAST SURGICAL HISTORY: See Below FAMILY HISTORY: See Below SOCIAL HISTORY: See Below HOME MEDICATIONS: See Below ALLERGIES: See Below VITALS: See Below PHYSICAL EXAMINATION: General: resting comfortably in no acute distress Head: Normocephalic and atraumatic Eyes: Normal inspection, extraocular muscles intact Ear, nose, throat: Normal external exam Neck: Normal range of motion Respiratory: lungs clear to auscultation bilaterally Cardiovascular: Regular rate/rhythm, no murmur GI: soft, nontender, no guarding or rebound Extremities: nontender, moves all extremities, 2+ pitting edema to bilateral lower extremities Neuro: The patient awake and alert, appropriately conversive, no focal deficits, symmetric faces Skin: Warm, dry, and intact MEDICAL DECISION MAKING: This is a 88-year-old male plan for exertional dyspnea. Patient was clinically well but when he is laid flat he has extreme respiratory difficulty. Otherwise he has 2+ pitting edema to bilateral lower extremities. Concern for CHF. Low concern for ACS or PE clinically. Could also some pneumonia or upper respiratory infection -Chest Xray independently interpreted by me showing no pneumothorax, focal opacity, or pleural effusions. -Bloodwork is reviewed showing no significant leukocytosis, anemia, electrolyte or creatinine abnormality -BNP is elevated at 264 -Clinically I am concerned about acute congestive heart failure based on his symptoms. Will admit for further workup and evaluation -Discussed care with Dr. Bashir Differential diagnosis: ACS, PE, CHF ER treatment provided: See below Independent History obtained from: Son Diagnostics interpreted by me: ECG: ECG independently interpreted by me with atrial fibrillation, rate of 65, normal axis, normal QRS, normal QTc, no ST segment elevations consistent with STEMI criteria Cardiac Monitoring: An order was placed for continuous cardiac monitoring. The monitor shows a rate of 74 with atrial fibrillation rhythm. Laboratory studies: As stated above and show below. Imaging studies: See below. Past Med/Surg History Problem List (Updated 05/26/24 @ 21:41 by Gaetano Niño MD) Orthopnea (Acute) Exertional dyspnea (Acute) Acute CHF (congestive heart failure) (Acute) Acute congestive heart failure Neuropathy Hypothyroid Hyperlipidemia Depression with anxiety COPD (chronic obstructive pulmonary disease) Chronic back pain BPH with obstruction/lower urinary tract symptoms Benign essential hypertension B12 deficiency Atrial fibrillation, permanent was on eliquis, taken off, only on 81mg aspirin/propranolol daily--follows with Dr. Anselmo Guillen Microalbuminuria Hematuria, microscopic SKINNER (dyspnea on exertion) Tremors of nervous system Thrombocytopenia Merlyn-Majano tear hx of 12/2022 Restless leg syndrome Chronic anticoagulation pt was on eliquis, taken off, only on 81mg aspirin daily Insomnia PAC (premature atrial contraction) Medical History (Updated 05/26/24 @ 21:41 by Gaetano Niño MD) History of melanoma on face/lip Hearing deficit History of COVID-19 05/2022--hospitalized at [facility] for 2 days due to severe weakness--no symptoms now Aspiration pneumonia Pulmonary nodules last CT chest in December 2018 noting resolution of pulmonary nodules, no further f/u indicated. Prostate nodule History of pneumonia History of Lyme disease Elevated PSA Bronchiectasis Surgical History History of esophagogastroduodenoscopy (EGD) 01/11/23 @ [facility] History of colonoscopy History of Mohs micrographic surgery for skin cancer x2 History of tooth extraction all teeth removed History of tonsillectomy History of bilateral cataract extraction History of cardiac cath 10/2017 in [place]--no stents placed H/O laminectomy cervical--normal ROM H/O hernia repair Hx of hand surgery Family History Mother Breast cancer Daughter Breast cancer Other No family history of adverse response to anesthesia Denies family history of Ovarian cancer Prostate cancer Myocardial infarction Colorectal cancer Social History Smoking Status: Never smoker Second Hand Exposure: No; Do You Dip or Chew Tobacco: No; Hx Alcohol Use: No Hx Substance Use: No Preferred Language: Croatian Communication Ability: Effective 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 current occupational status: retired How many Children do You have: 5 Feels Safe at Home: Yes Childhood Exposure to Second-Hand Smoke: No Diet: other Diet Comment: Does not follow diet. caffeine: Yes (Coffee x 1 cup per day.) during the past year weight has: remained stable Dental Care, Regularly: Yes Physical Activity Frequency: Does not Exercise Seatbelt Use: always Sunscreen Use: Yes Assistive Devices: Cane, Denture - Upper, Denture - Lower and Glasses Allergies Allergies Allergy/AdvReac Type Severity Reaction Status Date / Time COVID-19 vaccine, mRNA, AdvReac Severe MADE WEAK; Verified 05/26/24 15:17 [id number], VERY ILL [From Modern COVID-19 Booster(Unap)] Home Meds Home Medications Medication Instructions Recorded Confirmed polyethylene glycol 3350 17 gram 17 gm PO DAILY PRN Constipation 01/08/23 05/26/24 oral powder packet amlodipine 5 mg tablet 5 mg PO QAM 05/26/24 05/26/24 aspirin 81 mg tablet,delayed 81 mg PO QAM 05/26/24 05/26/24 release Previous Rx's Medication Instructions Recorded triamcinolone acetonide 0.1 % See Rx Instructions .Route 09/27/23 topical cream .COMPLEX PRN Rash #30 grams syringe with needle 3 mL 25 gauge #12 ea 11/03/23 x 1" (BD Luer-Frances Syringe) cyanocobalamin (vitamin B-12) 1,000 mcg IM MONTHLY #12 ea 03/01/24 1,000 mcg/mL injection kit vitamins A,C,V-ounu-cgdkos 2,148 1 tab PO AMPM #180 tabs 03/01/24 mcg-113 mg-45 mg-17.4 mg tablet (PreserVision AREDS) atorvastatin 10 mg tablet 10 mg PO QAM #90 tabs 04/11/24 bumetanide 1 mg tablet 0.5 mg (1/2 x 1 mg) PO QAM #45 tabs 04/11/24 gabapentin 600 mg tablet 600 mg PO BID #180 tabs 04/11/24 propranolol 10 mg tablet 10 mg PO BID #180 tabs 04/11/24 tamsulosin 0.4 mg capsule 0.4 mg PO QAM #90 caps 04/11/24 levothyroxine 25 mcg tablet 25 mcg PO QAM #90 tabs 04/22/24 Results & Data (ED) Vital Signs Vital Signs - 24 hr 05/26/24 13:59 05/26/24 13:59 05/26/24 14:07 Temperature 36.5 C Temperature Source Temporal Artery Scan Pulse Rate 69 Pulse Rate from SpO2 Sensor Respiratory Rate 18 Respiratory Effort / Characteristics Labored Non-Labored Spontaneous Respiratory Depth Deep Normal Respiratory Pattern Tachypnea Blood Pressure 112/71 Blood Pressure Mean 84 Blood Pressure Position Sitting Pulse Oximetry 97 Oxygen Delivery Method Room Air Room Air Room Air Sepsis Recent Fever Within 48 Hours No Sepsis New/Unexplained Change in Mental Status N/A Sepsis Action Taken by Nursing No Action Required 05/26/24 14:27 05/26/24 14:32 05/26/24 14:32 Temperature Temperature Source Pulse Rate Pulse Rate from SpO2 Sensor Respiratory Rate Respiratory Effort / Characteristics Respiratory Depth Respiratory Pattern Blood Pressure 135/90 134/91 134/91 Blood Pressure Mean 101 96 96 Blood Pressure Position Pulse Oximetry Oxygen Delivery Method Sepsis Recent Fever Within 48 Hours Sepsis New/Unexplained Change in Mental Status Sepsis Action Taken by Nursing 05/26/24 14:33 05/26/24 14:36 05/26/24 14:57 Temperature Temperature Source Pulse Rate 71 71 71 Pulse Rate from SpO2 Sensor 72 70 Respiratory Rate 18 23 Respiratory Effort / Characteristics Respiratory Depth Respiratory Pattern Blood Pressure Blood Pressure Mean Blood Pressure Position Pulse Oximetry 98 98 Oxygen Delivery Method Sepsis Recent Fever Within 48 Hours Sepsis New/Unexplained Change in Mental Status Sepsis Action Taken by Nursing 05/26/24 15:00 05/26/24 15:00 05/26/24 15:03 Temperature Temperature Source Pulse Rate 69 Pulse Rate from SpO2 Sensor 75 Respiratory Rate 24 Respiratory Effort / Characteristics Respiratory Depth Respiratory Pattern Blood Pressure 139/81 139/81 Blood Pressure Mean 98 98 Blood Pressure Position Pulse Oximetry 99 Oxygen Delivery Method Sepsis Recent Fever Within 48 Hours Sepsis New/Unexplained Change in Mental Status Sepsis Action Taken by Nursing 05/26/24 15:30 05/26/24 15:30 05/26/24 15:30 Temperature Temperature Source Pulse Rate Pulse Rate from SpO2 Sensor Respiratory Rate Respiratory Effort / Characteristics Respiratory Depth Respiratory Pattern Blood Pressure 141/90 H 141/90 H 141/90 H Blood Pressure Mean 112 112 112 Blood Pressure Position Pulse Oximetry Oxygen Delivery Method Sepsis Recent Fever Within 48 Hours Sepsis New/Unexplained Change in Mental Status Sepsis Action Taken by Nursing 05/26/24 15:30 05/26/24 15:30 05/26/24 15:51 Temperature Temperature Source Pulse Rate 73 71 Pulse Rate from SpO2 Sensor 73 70 Respiratory Rate 27 H 22 Respiratory Effort / Characteristics Respiratory Depth Respiratory Pattern Blood Pressure 141/90 H Blood Pressure Mean 112 Blood Pressure Position Pulse Oximetry 98 89 L Oxygen Delivery Method Sepsis Recent Fever Within 48 Hours Sepsis New/Unexplained Change in Mental Status Sepsis Action Taken by Nursing 05/26/24 16:00 05/26/24 16:06 05/26/24 16:15 Temperature Temperature Source Pulse Rate 69 75 Pulse Rate from SpO2 Sensor 66 Respiratory Rate 28 H 21 Respiratory Effort / Characteristics Respiratory Depth Respiratory Pattern Blood Pressure 142/87 H Blood Pressure Mean 116 Blood Pressure Position Pulse Oximetry 94 84 L Oxygen Delivery Method Sepsis Recent Fever Within 48 Hours Sepsis New/Unexplained Change in Mental Status Sepsis Action Taken by Nursing 05/26/24 16:21 05/26/24 16:36 05/26/24 16:45 Temperature Temperature Source Pulse Rate 76 70 80 Pulse Rate from SpO2 Sensor 76 72 81 Respiratory Rate 30 H 37 H 24 Respiratory Effort / Characteristics Respiratory Depth Respiratory Pattern Blood Pressure Blood Pressure Mean Blood Pressure Position Pulse Oximetry 96 99 99 Oxygen Delivery Method Sepsis Recent Fever Within 48 Hours Sepsis New/Unexplained Change in Mental Status Sepsis Action Taken by Nursing Laboratory Data 05/26/24 14:30 05/26/24 14:30 Lab Results 05/26/24 05/26/24 Range/Units 14:28 14:30 WBC 11.73 H (4.8-10.8) K/ul RBC 4.68 L (4.70-6.10) M/uL Hgb 14.5 (14.0-18.0) g/dl Hct 43.5 (42.0-52.0) % MCV 92.9 (80.0-100.0) fL MCH 31.0 (25.0-34.0) pg MCHC 33.3 (32.0-36.0) g/dL RDW Std Deviation 48.2 H (36.4-46.3) fL RDW Coeff of Nadege 14.1 (11.5-14.5) % Plt Count 158 (130-400) K/uL MPV 11.2 (9.4-12.4) fL Immature Gran % (Auto) 0.3 % Neut % (Auto) 76.5 % Lymph % (Auto) 11.9 % Mower % (Auto) 9.5 % Eos % (Auto) 1.6 % Baso % (Auto) 0.2 % Neut # (Auto) 8.97 H (1.40-6.50) K/uL Lymph # (Auto) 1.40 (1.20-3.40) K/uL Mower # (Auto) 1.12 H (0.11-0.59) K/uL Eos # (Auto) 0.19 (0.00-0.50) K/uL Baso # (Auto) 0.02 (0.00-0.20) K/uL Immature Gran # (Auto) 0.03 (0.01-0.20) K/uL Sodium 139 (136-145) mmol/L Potassium 4.0 (3.5-5.1) mmol/L Chloride 104 (98-107) mmol/L Carbon Dioxide 30 (21-32) mmol/L Anion Gap 5 (3-11) BUN 20 (6-23) mg/dl Creatinine 0.97 (0.6-1.4) mg/dl Est Cr Clr Drug Dosing 65.1 ml/min Est GFR ( Amer) 79.9 ml/min Est GFR (Non-Af Amer) 68.9 ml/min BUN/Creatinine Ratio 20.6 H (10-20) Glucose 90 (70-99(Fasting)) mg/dl Calcium 8.8 (8.6-10.3) mg/dl Magnesium 2.1 (1.7-2.4) mg/dl Total Bilirubin 1.4 H (0.2-1.0) mg/dl AST 16 (13-39) U/L ALT 9 (7-52) U/L Alkaline Phosphatase 90 (34-104) U/L Troponin I High Sens 5.9 (0-20) pg/ml B-Natriuretic Peptide 264 H (0-100) pg/ml Total Protein 7.0 (6.0-8.3) gm/dl Albumin 3.9 (3.4-5.0) gm/dl Globulin 3.1 (2.5-4.0) gm/dl Albumin/Globulin Ratio 1.3 (0.9-2) Adenovirus (PCR) Not Detected (NotDetected) B. pertussis DNA (PCR) Not Detected (NotDetected) B.parapertussis DNA PCR Not Detected (NotDetected) C. pneumoniae DNA (PCR) Not Detected (NotDetected) Coronavirus OC43 (PCR) Not Detected (NotDetected) Coronavirus HKU1 (PCR) Not Detected (NotDetected) Coronavirus 229E (PCR) Not Detected (NotDetected) SARS-CoV-2 (PCR) Not Detected (NotDetected) Coronavirus NL63 (PCR) Not Detected (NotDetected) Human Metapneumovir PCR Not Detected (NotDetected) Influenza Type A (PCR) Not Detected (NotDetected) Influenza Type B (PCR) Not Detected (NotDetected) M. pneumoniae (PCR) Not Detected (NotDetected) Parainfluenza 1 (PCR) Not Detected (NotDetected) Parainfluenza 2 (PCR) Not Detected (NotDetected) Parainfluenza 3 (PCR) Not Detected (NotDetected) Parainfluenza 4 (PCR) Not Detected (NotDetected) RSV (PCR) Not Detected (NotDetected) Entero/Rhino (PCR) Not Detected (NotDetected) Administered Medications Discontinued Medications Bumetanide 1 mg/ Syringe 4 mls @ 4 mls/min IV ONE STA Stop: 05/26/24 16:09 Last Admin: 05/26/24 16:26 Dose: 4 mls/min Documented By: EMILIE Imaging Data Radiologist's Impression: Chest X-Ray 05/26/24 14:11 XR chest 1V portable HISTORY: 88 years-old Male Dyspnea acute shortness of breath COMPARISON: 01/10/2023 TECHNIQUE: AP view of the chest FINDINGS: Left atrial occlusion device. Heart is upper limits of normal in size. Atherosclerosis of the aorta. No pneumothorax, pleural effusion or airspace consolidation. Bones appear grossly intact. IMPRESSION: No acute process. ACT 112: Negative or not required by law. The above report was generated using voice recognition software. It may contain grammatical, syntax or spelling errors. Electronically signed by: Riley Gottlieb M.D. 05/26/2024 2:52 PM Discharge Plan Visit Data Chief Complaint: Shortness of Breath/Dyspnea Stated Complaint: SOB ED Provider: Gaetano Niño Discharge Problem: Acute CHF (congestive heart failure), Exertional dyspnea, Orthopnea Patient Disposition: Admitted As Inpatient Discharge Instructions Interventions: ED Discharge Assessment Last Done: 05/26/24 20:39
--- NOTE | 2024-05-26 20:57 | Electrocardiogram Report ---
Test Reason : Blood Pressure : */* mmHG Vent. Rate : 65 BPM Atrial Rate : * BPM P-R Int : * ms QRS Dur : 88 ms QT Int : 408 ms P-R-T Axes : * 86 65 degrees QTcB Int : 424 ms Atrial fibrillation Septal infarct , age undetermined Abnormal ECG When compared with ECG of 08-Jan-2023 18:53, Vent. rate has decreased by 33 bpm Nonspecific T wave abnormality no longer evident in Inferior leads Confirmed by Peter Fontanez ([id number]) on 05/26/2024 8:57:00 PM Referred By: REFERRED SELF Confirmed By: Peter Fontanez
[2024-05-26] MEDS ORDERED: TRIAMCINOLONE ACET 0.1% CR 15 GM TUBE TOP PRN (21:44)
[2024-05-26] MEDS ORDERED: POLYETHYLENE (MIRALAX) 17 GM PACK PO PRN (21:44)
[2024-05-26 21:58] VITALS: RESP 18
[2024-05-26] MEDS: PROPRANOLOL HCL 10 MG TAB PO SCH (22:47)
[2024-05-26] MEDS: GABAPENTIN 600 MG TAB PO SCH (22:47)
[2024-05-27] MEDS: LEVOTHYROXINE SODIUM 25 MCG TABLET PO SCH (06:08)
[2024-05-27] MEDS: BUMETANIDE 1 MG in SYRINGE 0 ML IV SCH (08:28)
[2024-05-27] MEDS: ENOXAPARIN INJ 40 MG/0.4 ML SYR SQ SCH (08:28)
[2024-05-27] MEDS: CEROVITE ADV FORMULA TAB PO SCH (08:29)
[2024-05-27] MEDS: ATORVASTATIN 10 MG TAB PO SCH (08:29)
[2024-05-27] MEDS: ASPIRIN 81 MG ECTAB PO SCH (08:29)
[2024-05-27] MEDS: amLODIPine BESYLATE 5 MG TAB PO SCH (08:29)
[2024-05-27] MEDS: TAMSULOSIN HCL 0.4 MG CAP PO SCH (08:29)
[2024-05-27 09:59] LABS: Basophils # (auto) 0.03 K/uL (0.00-0.20); Basophils % (auto) 0.3 %; Eosinophils # (auto) 0.19 K/uL (0.00-0.50); Eosinophils % (auto) 2.1 %; Hematocrit (blood only) 39.3 % (42.0-52.0); Hemoglobin 13.3 g/dl (14.0-18.0); Immature Granulocytes # (auto) 0.02 K/uL (0.01-0.20); Immature Granulocytes % (auto) 0.2 %; Lymphocytes # (auto) 1.61 K/uL (1.20-3.40); Lymphocytes % (auto) 17.5 %; Mean Corpuscular Hemoglobin 30.7 pg (25.0-34.0); Mean Corpuscular Hgb Conc 33.8 g/dL (32.0-36.0); Mean Corpuscular Volume 90.8 fL (80.0-100.0); Mean Platelet Volume 11.4 fL (9.4-12.4); Monocytes # (auto) 1.03 K/uL (0.11-0.59); Monocytes % (auto) 11.2 %; Neutrophils % (auto) 68.7 %; Platelet Count 161 K/uL (130-400); RDW Coefficient of Variation 13.9 % (11.5-14.5); Red Blood Count 4.33 M/uL (4.70-6.10); White Blood Count 9.18 K/ul (4.8-10.8)
[2024-05-27 10:13] LABS: BUN Creatinine Ratio 18.8 (10-20); Calcium 8.4 mg/dl (8.6-10.3); Creatinine Clr Calc Pharmacy 64.1 ml/min; Est GFR (African American) 76.1 ml/min; Est GFR (Non-African American) 65.6 ml/min; Magnesium 1.9 mg/dl (1.7-2.4); Potassium 3.4 mmol/L (3.5-5.1)
[2024-05-27 11:42] VITALS: BP 115/66; TEMP 97.2; O2SAT 96
--- NOTE | 2024-05-27 12:07 | Discharge Summary ---
Discharge Summary Date of Service May 27, 2024 Principal Dx & Hospital Course #1 = Principal Diagnosis (1) Acute congestive heart failure: - Improved; denies SOB on discharge - Likely due to poor diet with sauerkraut, hot dogs and frozen meals; possibly due to beta saima use - BNP on admission 262 - Bumex 1mg IV BID given during admission - Takes Bumex as needed for edema at home will discuss with primary care provider patient may require Bumex on a more scheduled basis. Will need continued surveillance for his aortic stenosis. - TTE on admission showed LVEF 60-65%, dilation of left atrium, right ventricle, and right atrium, mild/moderate aortic stenosis - Strict I&Os during admission - Daily weights during admission, stable (2) Hypokalemia: - likely secondary to Bumex use - K+ on 05/27 3.4 - Given 40 MeQ potassium PO - repeat K+ remained at 3.4, likely due to short interval of time since supplement - will order follow up labs in 2 days, 05/29 (3) Neuropathy: - Continue home gabapentin (4) Hypothyroid: - TSH WNL - Continue levothyroxine (5) Atrial fibrillation, permanent: - Rate controlled on propranolol - Not on anticoagulation due to watchman (6) BPH with obstruction/lower urinary tract symptoms: - Continue tamsulosin (7) Benign essential tremor: - Continue propranolol Plan Code status - DNR/DNI Disposition - cleared for discharge Admission HPI Per Admitting Provider Filiberto Simmons is an 88 year old male with atrial fibrillation s/p watchman who presents to the ER with shortness of breath. He reports shortness of breath progressively getting worse especially on lying flat for the last 3 days with associated pre-syncope and non-productive cough. A week ago he felt fine. At baseline he takes Bumex as needed for ankle swelling. He reports last taking this on and usually takes it around twice a week sometimes 0.5mg, occasionally 1mg. He notes his isn't in good shape and not cooking as much for him recently and is living off frozen meals sauerkraut and hot dogs (although this isn't too unusual for him it may have increased with his not cooking as much). He denies any chest pain, paroxysmal nocturnal dyspnea, palpitations, syncope, claudication, fever, chills, nasal congestion, sinus pain. No change to urinary symptoms, he notes nocturia three times a night which is stable. He took all his morning medications. Admission Exam Per Admitting Provider Constitutional: WD/WN, vitals as above Respiratory: normal respiratory effort; no respiratory distress (only on lying down) Auscultation: + crackles (bibasal); breath sounds present, no diminished lung sounds, no rales, no rhonchi and no wheezes Cardiovascular: Rate/Rhythm: regular rate and + irregularly irregular Heart Sounds: no murmur Vessels: + JVD Extremities: normal capillary refill and + pedal edema (1+ b/l equal to mid shins); no calf tenderness Gastrointestinal (Abdomen): normal bowel sounds, soft, nontender, no hepatosplenomegaly Musculoskeletal: no cyanosis or clubbing, extremities motor strength 5/5 Skin: no rashes, warm and dry Neurologic: moves all extremities and awake; not confused Psychiatric: A+Ox3, euthymic affect Discharge Exam The patient is awake, alert and oriented 3, well developed and well nourished, normocephalic and atraumatic, in no acute distress. Non-toxic appearing. HEENT- EOMI, mucous membranes moist. Hearing grossly intact. Heart-normal S1 and S2. No murmurs, rubs or gallops. Lungs-clear bilaterally, no respiratory distress, no accessory muscle use. No crackles, wheezes, or rhonchi present. Abdomen- normal bowel sounds and soft. No ascites noted. Non-tender. Extremities- no clubbing, cyanosis, or edema. Rheumatologic- normal range of motion. Psychiatric- normal affect. Discharge Plan Discharge Items Patient Disposition: Home - Self-Care Reason For Visit: ACUTE CONGESTIVE HEART FAILURE Discharge Diagnosis: 1. Congestive Heart Failure 2. Neuropathy 3. Hypothyroidism 4. Atrial fibrillation, permanent 5. BPH 6. Benign essential tremor Condition on Discharge: Good Activity: Resume your previous activity Non-emergency contact: Primary Care Provider Call non-emergency contact if: you have any medication questions and your symptoms worsen Follow-up/Referrals: Kaylee Page DO [Primary Care Provider] - 05/30/24 10:00 am (With Dr. Veronica) Diet: Regular Ambulatory Orders: Basic Metabolic Panel (Routine) Timeframe: 2 Days Location: Determined by Patient Ordered By: Naila Sanchez Attending Provider Instructions: You were admitted for an exacerbation of your CHF, likely caused by recent poor/high sodium diet. The echocardiogram showed a left ventricle ejection fraction of 60-65%. Continue to take Bumex at home as needed, and I recommended to eat a healthy diet without excess sodium. You potassium was slighlty low during your hospital stay. I gave you 40 MeQ of potassium on 05/27. I ordered for you to get follow up blood work on this in 2 days, 05/29. Please get this blood work on Monday and follow up with your primary care doctor. Pending Studies at Discharge: No Stand-Alone Forms: My [facility] Medications and DC Order Prescriptions: Continued (DME) BD Luer-Frances Syringe 3 mL 25 gauge x 1" syringe See Rx Instructions .Route Qty: 12 11RF Rx Instructions: USE WITH MONTHLY B12 INJECTIONS cyanocobalamin (vitamin B-12) 1,000 mcg/mL kit 1,000 mcg IM MONTHLY Qty: 12 11RF PreserVision AREDS 2,148 mcg-113 mg-45 mg-17.4mg tablet 1 tab PO AMPM Qty: 180 1RF Rx Instructions: administer with AM and PM meals atorvastatin 10 mg tablet 10 mg PO QAM Qty: 90 3RF bumetanide 1 mg tablet 0.5 mg PO QAM Qty: 45 2RF Rx Instructions: pt states he only uses as needed for fluid gabapentin 600 mg tablet 600 mg PO BID Qty: 180 1RF propranolol 10 mg tablet 10 mg PO BID Qty: 180 1RF tamsulosin 0.4 mg capsule 0.4 mg PO QAM Qty: 90 1RF levothyroxine 25 mcg tablet 25 mcg PO QAM Qty: 90 1RF triamcinolone acetonide 0.1 % cream See Rx Instructions .ROUTE .COMPLEX PRN (Reason: Rash) Qty: 30 3RF Dose Instruction: APPLY A THIN LAYER TO AFFECTED AREA(S) TWICE DAILY. Rx Instructions: APPLY A THIN LAYER TO AFFECTED AREA(S) TWICE DAILY. PRN; polyethylene glycol 3350 17 gram powder in packet 17 gm PO DAILY PRN (Reason: Constipation) Rx Instructions: MIX 1 CAPFUL IN 8 OUNCES OF WATER aspirin 81 mg Tablet,Delayed Release (Dr/Ec) 81 mg PO QAM amlodipine 5 mg tablet 5 mg PO QAM Discharge Orders: Discharge Order- CHF (Routine); Ordered 05/27/24 Ordered By: Naila Lee/Other Patient Handouts: Heart Failure Make Changes Diet, Hypokalemia Dc Admission Data Admit Date/Time: 05/26/24 16:55 Attending Provider: Wolfgang Daniel Admit Provider: Be Bashir Primary Care Provider: Kaylee Page Other Providers: Be Bashir Other Interventions: Discharge Summary Assessment (RN) Last Done: 05/27/24 14:23 Hospital Stay Data Consultations 05/26/24 16:11 ED Decision to Admit Stat Diagnostic Imagining Performed Chest X-Ray 05/26/24 14:11 XR chest 1V portable HISTORY: 88 years-old Male Dyspnea acute shortness of breath COMPARISON: 01/10/2023 TECHNIQUE: AP view of the chest FINDINGS: Left atrial occlusion device. Heart is upper limits of normal in size. Atherosclerosis of the aorta. No pneumothorax, pleural effusion or airspace consolidation. Bones appear grossly intact. IMPRESSION: No acute process. ACT 112: Negative or not required by law. The above report was generated using voice recognition software. It may contain grammatical, syntax or spelling errors. Electronically signed by: Riley Gottlieb M.D. 05/26/2024 2:52 PM Discharge Instructions Given to Patient (Per Discharging Provider) You were admitted for an exacerbation of your CHF, likely caused by recent poor/high sodium diet. The echocardiogram showed a left ventricle ejection fraction of 60-65%. Continue to take Bumex at home as needed, and I recommended to eat a healthy diet without excess sodium. You potassium was slighlty low during your hospital stay. I gave you 40 MeQ of potassium on 05/27. I ordered for you to get follow up blood work on this in 2 days, 05/29. Please get this blood work on Monday and follow up with your primary care doctor. Supervising Physician Co-Signing Physician Notes Patient was seen and examined independently I discussed the case with Naila Camacho PAC I reviewed pertinent past medical social family history and also the plan of care and agree with the plan of care. Patient was lying flat upon my examination he says he feels like he is back to 100% his normal self On education he will limit sodium in his diet continue to follow-up with his primary care provider regarding medication management. Card exam is regular lungs are clear there is no JVD Patient is stable to go home on usual home medications at this time It required greater than 30 minutes to prepare this patient for discharge. Any exceptions will be noted below Total Time Total Time Spent Total Time Spent (In Minutes): 50 Coding Level of Care Code None Diagnoses Acute congestive heart failure I50.9 Hypokalemia E87.6 Neuropathy G62.9 Hypothyroidism, unspecified type E03.9 Hypothyroidism type: unspecified Atrial fibrillation, permanent I48.2 BPH with obstruction/lower urinary tract symptoms N40.1; N13.8 Benign essential tremor G25.0
[2024-05-27] MEDS: POTASSIUM CHLORIDE CRTAB 20 MEQ TABCR PO STA (12:31)
[2024-05-27 14:24] VITALS: PULSE 65
--- NOTE | 2024-05-27 17:30 | Billing Data ---
Date of Service May 27, 2024 Coding Level of Care Code 16365 INP/OBS DISCH >30 MIN
--- NOTE | 2024-05-28 21:45 | Coding Query ---
CONGESTIVE HEART FAILURE To Promote full compliance with coding requirements relating to patient care, physician participation is requested in all cases of orthopedic coder uncertainty. Please assist us with the following questions. A diagnosis of Congestive Heart Failure is documented in the patient's medical record. To accurately code this diagnosis and to compare patient severity, we ask that you specify the type of heart failure by placing an X within the parenthesis (x). (1) Acute congestive heart failure: - Improved; denies SOB on discharge - Likely due to poor diet with sauerkraut, hot dogs and frozen meals; possibly due to beta saima use - BNP on admission 262 - Bumex 1mg IV BID given during admission - Takes Bumex as needed for edema at home will discuss with primary care provider patient may require Bumex on a more scheduled basis. Will need continued surveillance for his aortic stenosis. 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 Please check the appropriate box: ( ) Present on Admission ( ) Not Present On Admission ( ) Clinically undetermined Thank you Temitope RUBIO
== END 2024-05-27 15:50 | disposition home or self-care (01) ==
LOC: ED 13:59 → SUATTDRO 16:55 → 2N 16:55 → INTOOBSV 16:55 → 2N 20:39